=== PATIENT | male | born 1985 | race Hispanic/Latino ===

== ENCOUNTER 2017-12-18 14:34 | Emergency (ER) | payer SELFPAY ==
--- NOTE | 2017-12-18 16:11 | EDPHYS ---
Physician Documentation [facility] Name: Leandra Staton Age: 32 yrs Sex: Male : 1985 Arrival Date: 12/18/2017 Time: 14:37 Bed 26 Private MD: None, None ED Physician Armando Hope HPI: 12/18 16:13 This 32 yrs old Male presents to ER via Ambulatory with complaints of snw Headache, Toothache, Ear Pain. 16:14 The patient presents with pain, swelling. The problem is located in the lower left snw third molar (#17). Onset: The symptoms/episode began/occurred suddenly. Onset: The symptoms/episode began/occurred gradually. Duration: The symptoms are continuous, and are steadily getting worse. Modifying factors: The symptoms are alleviated by nothing. Associated signs and symptoms: Pertinent positives: pain, swelling. Severity of symptoms: At their worst the symptoms were moderate, severe. The patient has not experienced similar symptoms in the past. dentist x 1 month ago. Historical: - Allergies: 14:39 No Known Allergies; sv - Home Meds: 14:39 None [Active]; sv - PMHx: 14:39 Gout; sv - PSHx: 14:39 None; sv - Immunization history:: Adult Immunizations up to date. - Social history:: Smoking status: Patient uses tobacco products, denies chronic smoking, but will smoke occasionally. - Ebola Screening: : No symptoms or risks identified at this time. ROS: 16:12 Constitutional: Negative for fever, chills, and weight loss, Eyes: Negative for injury, snw pain, redness, and discharge, Neck: Negative for injury, pain, and swelling, Cardiovascular: Negative for chest pain, palpitations, and edema, Respiratory: Negative for shortness of breath, cough, wheezing, and pleuritic chest pain, Abdomen/GI: Negative for abdominal pain, nausea, vomiting, diarrhea, and constipation, Back: Negative for injury and pain, : Negative for injury, bleeding, discharge, and swelling, MS/Extremity: Negative for injury and deformity, Skin: Negative for injury, rash, and discoloration, Neuro: Negative for headache, weakness, numbness, tingling, and seizure. 16:12 ENT: Positive for dental pain, ear pain. Exam: 16:11 Constitutional: This is a well developed, well nourished patient who is awake, alert, snw and in no acute distress. Head/Face: Normocephalic, atraumatic. Eyes: Pupils equal round and reactive to light, extra-ocular motions intact. Lids and lashes normal. Conjunctiva and sclera are non-icteric and not injected. Cornea within normal limits. Periorbital areas with no swelling, redness, or edema. Neck: Trachea midline, no thyromegaly or masses palpated, and no cervical lymphadenopathy. Supple, full range of motion without nuchal rigidity, or vertebral point tenderness. No Meningismus. Chest/axilla: Normal chest wall appearance and motion. Nontender with no deformity. No lesions are appreciated. Cardiovascular: Regular rate and rhythm with a normal S1 and S2. No gallops, murmurs, or rubs. Normal PMI, no JVD. No pulse deficits. Respiratory: Lungs have equal breath sounds bilaterally, clear to auscultation and percussion. No rales, rhonchi or wheezes noted. No increased work of breathing, no retractions or nasal flaring. Abdomen/GI: Soft, non-tender, with normal bowel sounds. No distension or tympany. No guarding or rebound. No evidence of tenderness throughout. Back: No spinal tenderness. No costovertebral tenderness. Full range of motion. Skin: Warm, dry with normal turgor. Normal color with no rashes, no lesions, and no evidence of cellulitis. MS/ Extremity: Pulses equal, no cyanosis. Neurovascular intact. Full, normal range of motion. Neuro: Awake and alert, GCS 15, oriented to person, place, time, and situation. Cranial nerves II-XII grossly intact. Motor strength 5/5 in all extremities. Sensory grossly intact. Cerebellar exam normal. Normal gait. 16:11 ENT: External ear(s): are unremarkable, Ear canal(s): cerumen impaction, TM's: not visable, because of cerumen, Nose: is normal, Mouth: is normal, Dental exam: dental caries, that is moderate, specifically in the lower left third molar (#17). Vital Signs: 14:39 BP 142 / 73 RA Sitting (auto/lg); Pulse 79; Resp 18; Temp 97.9(TE); Pulse Ox 98% on sv R/A; Weight 113.4 kg (R); Height 5 ft. 8 in. (172.72 cm) (R); Pain 8/10; 14:39 Body Mass Index 38.01 (113.40 kg, 172.72 cm) sv MDM: 15:40 Patient medically screened. snw 16:13 Data reviewed: vital signs, nurses notes. Data interpreted: Pulse oximetry: on room air snw is 98 %. Interpretation: normal. Counseling: I had a detailed discussion with the patient and/or guardian regarding: the historical points, exam findings, and any diagnostic results supporting the discharge/admit diagnosis, the presence of at least one elevated blood pressure reading (>120/80) during this emergency department visit, the need for outpatient follow up, to return to the emergency department if symptoms worsen or persist or if there are any questions or concerns that arise at home. Special discussion: I have referred the patient to see his PCP for further evaluation of high blood pressure. Based on the history and exam findings, there is no indication for further emergent testing or inpatient evaluation. I discussed with the patient/guardian the need to see a dentist for further evaluation of the symptoms. I discussed with the patient/guardian the need to see the primary care provider for further evaluation of the symptoms. Administered Medications: 16:55 Drug: TORadol 60 mg Route: IM; Site: left gluteus; aj1 17:12 Follow up: Response: No adverse reaction aj1 16:55 Drug: Tylenol 1000 mg Route: PO; aj1 17:12 Follow up: Response: No adverse reaction aj1 16:55 Drug: Clindamycin 300 mg Route: PO; aj1 17:11 Follow up: Response: No adverse reaction aj1 Disposition: 12/19 07:25 Co-signature as Attending Physician, Armando Hope MD I agree with the assessment and kenya plan of care. Disposition: 12/18/17 16:10 Discharged to Home. Impression: Dental caries. - Condition is Stable. - Discharge Instructions: Dental Abscess, Dental Injury, Dental Pain, Diet and Dental Disease. - Prescriptions for Clindamycin HCl 300 mg Oral Capsule - take 1 capsule by ORAL route every 6 hours for 10 days; 40 capsule. Diclofenac Sodium 75 mg Oral Tablet Sustained Release - take 1 tablet by ORAL route 2 times per day; 30 tablet. chlorhexidine gluconate 0.12 % Mucous Membrane mouthwash - place 15 milliliter by MUCOUS MEMBRANE route 2 times per day after brushing teeth, swish in mouth for 30 seconds then spit out; 480 milliliter. - Work release form, Medication Reconciliation Form, Thank You Letter, Antibiotic Education, Prescription Opioid Use form. - Follow up: Private Physician; When: 2 - 3 days; Reason: Recheck today's complaints, Continuance of care, Re-evaluation by your physician. Follow up: Emergency Department; When: As needed; Reason: Worsening of condition. Signatures: Natalee Montilla, RN RN aj1 Iztel Carrasco RN Armando Morales MD MD cha Therrien, Shelly, MOLD CLOSER-C MOLD CLOSER-Csnw Corrections: (The following items were deleted from the chart) 12/18 17:17 16:10 12/18/2017 16:10 Discharged to Home. Impression: Dental caries. Condition is aj1 Stable. Forms are Medication Reconciliation Form, Thank You Letter, Antibiotic Education, Prescription Opioid Use. Follow up: Private Physician; When: 2 - 3 days; Reason: Recheck today's complaints, Continuance of care, Re-evaluation by your physician. Follow up: Emergency Department; When: As needed; Reason: Worsening of condition. snw
--- NOTE | 2017-12-18 16:11 | ER ---
Nurse's Notes [facility] Name: Leandra Staton Age: 32 yrs Sex: Male : 1985 Arrival Date: 12/18/2017 Time: 14:37 Bed 26 Private MD: None, None Diagnosis: Dental caries Presentation: 12/18 14:38 Presenting complaint: Patient states: "bad toothache, left ear ache and a headache." sv Started a month ago. Transition of care: patient was not received from another setting of care. Onset of symptoms was November 18, 2017. Care prior to arrival: None. 14:38 Method Of Arrival: Ambulatory sv 14:38 Acuity: STEPHANIE 4 sv 14:41 Risk Assessment: Do you want to hurt yourself or someone else? Patient reports no sv desire to harm self or others. Initial Sepsis Screen: Does the patient meet any 2 criteria? No. Patient's initial sepsis screen is negative. Does the patient have a suspected source of infection? No. Patient's initial sepsis screen is negative. Triage Assessment: 16:56 Headache History: Denies prior headaches. General: Appears in no apparent distress. aj1 Pain: Pain began suddenly, Also complains of inability to work. Historical: - Allergies: 14:39 No Known Allergies; sv - Home Meds: 14:39 None [Active]; sv - PMHx: 14:39 Gout; sv - PSHx: 14:39 None; sv - Immunization history:: Adult Immunizations up to date. - Social history:: Smoking status: Patient uses tobacco products, denies chronic smoking, but will smoke occasionally. - Ebola Screening: : No symptoms or risks identified at this time. Screenin:41 Abuse screen: Denies threats or abuse. Denies injuries from another. Nutritional aj1 screening: No deficits noted. Tuberculosis screening: No symptoms or risk factors identified. 16:56 Fall Risk None identified. aj1 Assessment: 15:41 General: Appears in no apparent distress. uncomfortable, Behavior is calm, cooperative, aj1 appropriate for age. Pain: Complains of pain in mouth Pain radiates to left ear Pain currently is 9 out of 10 on a pain scale. Neuro: Level of Consciousness is awake, alert, obeys commands. Cardiovascular: Patient's skin is warm and dry. Respiratory: Airway is patent Respiratory effort is even, unlabored, Respiratory pattern is regular, symmetrical. GI: No signs and/or symptoms were reported involving the gastrointestinal system. : No signs and/or symptoms were reported regarding the genitourinary system. EENT: Reports pain in mouth States he has had a bad tooth for about a month and a half. He was the dentist and they gave him PCN and Motrin, he completed the abx and felt better, then suddenly today his tooth started hurting again. Derm: No signs and/or symptoms reported regarding the dermatologic system. Skin is pink, warm \\T\\ dry. normal. Musculoskeletal: No signs and/or symptoms reported regarding the musculoskeletal system. Circulation, motion, and sensation intact. 16:55 Reassessment: Patient appears in no apparent distress at this time. No changes from aj1 previously documented assessment. Patient and/or family updated on plan of care and expected duration. Pain level reassessed. Patient is alert, oriented x 3, equal unlabored respirations, skin warm/dry/pink. Vital Signs: 14:39 BP 142 / 73 RA Sitting (auto/lg); Pulse 79; Resp 18; Temp 97.9(TE); Pulse Ox 98% on sv R/A; Weight 113.4 kg (R); Height 5 ft. 8 in. (172.72 cm) (R); Pain 8/10; 14:39 Body Mass Index 38.01 (113.40 kg, 172.72 cm) sv ED Course: 14:37 Patient arrived in ED. mr 14:37 None, None is Private Physician. mr 14:39 Triage completed. sv 14:39 Arm band placed on right wrist. sv 15:40 Gay Garcia FNP-C is PHCP. snw 15:40 Armando Hope MD is Attending Physician. snw 15:41 Natalee Montilla RN is Primary Nurse. aj1 15:41 Patient has correct armband on for positive identification. Bed in low position. Call aj1 light in reach. Side rails up X 1. 15:41 No provider procedures requiring assistance completed. aj1 16:55 Patient did not have IV access during this emergency room visit. aj1 Administered Medications: 16:55 Drug: TORadol 60 mg Route: IM; Site: left gluteus; aj1 17:12 Follow up: Response: No adverse reaction aj1 16:55 Drug: Tylenol 1000 mg Route: PO; aj1 17:12 Follow up: Response: No adverse reaction aj1 16:55 Drug: Clindamycin 300 mg Route: PO; aj1 17:11 Follow up: Response: No adverse reaction aj1 Outcome: 16:10 Discharge ordered by MD. patel 17:17 Discharged to home ambulatory. aj1 17:17 Condition: good 17:17 Discharge instructions given to patient, Instructed on discharge instructions, follow up and referral plans. medication usage, Demonstrated understanding of instructions, follow-up care, medications, Prescriptions given X 3. 17:17 Patient left the ED. aj1 Signatures: Natalee Montilla RN RN aj1 Itzel Carrasco RN RN sv Gay Garcia, TECHNICAL TRAINING MANAGER-C TECHNICAL TRAINING MANAGER-Csnw Porsha Ba Corrections: (The following items were deleted from the chart) 14:42 14:39 Pulse 79bpm; Resp 18bpm; Pulse Ox 98% RA; Temp 97.9F Temporal; 113.4 kg Reported; sv Height 5 ft. 8 in. Reported; BMI: 38.0; Pain 8/10; sv
[2017-12-18] MEDS ORDERED: ACETAMINOPHEN 500 MG TAB ONE (16:47)
[2017-12-18] MEDS ORDERED: KETOROLAC 30 MG/ML INJ ONE (16:47)
[2017-12-18] MEDS ORDERED: CLINDAMYCIN HCL 150 MG CAP ONE (16:49)
[2017-12-18 17:23] VITALS: BP 142/73; TEMP 97.9; O2SAT 98
== END 2017-12-18 17:17 | disposition home or self-care (01) ==
LOC: ER 14:34
DX: K02.9 Dental caries, unspecified (principal); Z72.0 Tobacco use
CPT/HCPCS: 96372; 99283

== ENCOUNTER 2018-01-07 11:11 | Emergency (ER) | payer SELFPAY ==
--- NOTE | 2018-01-07 11:38 | ER ---
Nurse's Notes [facility] Name: Leandra Staton Age: 32 yrs Sex: Male : 1985 Arrival Date: 01/07/2018 Time: 11:14 Bed 23 Private MD: None, None Diagnosis: Gout Presentation: 01/07 11:15 Presenting complaint: Patient states: i have this pain on my L big toe that started hj yesterday around 6pm, denies trauma to the area, was swimming when it started hurting; denies wound to the area; denies tingling and numbness to the area; HX of gout; "states" i drink 2 bottle of beers yesterday";. Transition of care: patient was not received from another setting of care. Onset of symptoms was January 07, 2018. Risk Assessment: Do you want to hurt yourself or someone else? Patient reports no desire to harm self or others. Initial Sepsis Screen: Does the patient meet any 2 criteria? No. Patient's initial sepsis screen is negative. Does the patient have a suspected source of infection? No. Patient's initial sepsis screen is negative. Care prior to arrival: None. 11:15 Method Of Arrival: Ambulatory 11:15 Acuity: STEPHANIE 4 hj Triage Assessment: 11:17 General: Appears in no apparent distress. uncomfortable, Behavior is calm, cooperative, hj appropriate for age. Pain: Complains of pain in left first toe Pain currently is 4 out of 10 on a pain scale. Historical: - Allergies: 11:17 No Known Allergies; hj - Home Meds: 11:17 None [Active]; hj - PMHx: 11:17 Gout; 14:45 Hypertension; gs - PSHx: 11:17 None; hj - Immunization history:: Adult Immunizations up to date. - Social history:: Smoking status: Patient/guardian denies using tobacco, Patient uses alcohol. - Ebola Screening: : Patient negative for fever greater than or equal to 101.5 degrees Fahrenheit, and additional compatible Ebola Virus Disease symptoms Patient denies exposure to infectious person Patient denies travel to an Ebola-affected area in the 21 days before illness onset. Screenin:17 Abuse screen: Denies threats or abuse. Denies injuries from another. Nutritional hj screening: No deficits noted. Tuberculosis screening: No symptoms or risk factors identified. Fall Risk None identified. Assessment: 11:23 General: Appears in no apparent distress. uncomfortable, Behavior is calm, cooperative, aj1 appropriate for age. Pain: Complains of pain in left first toe Pain does not radiate. Pain currently is 4 out of 10 on a pain scale. Quality of pain is described as aching, throbbing, Is intermittent, Alleviated by rest, Aggravated by repositioning, weight bearing. Neuro: Level of Consciousness is awake, alert, obeys commands, Oriented to person, place, time, situation, Speech is normal. Cardiovascular: Patient's skin is warm and dry. Respiratory: Airway is patent Respiratory effort is even, unlabored, Respiratory pattern is regular, symmetrical. GI: No signs and/or symptoms were reported involving the gastrointestinal system. : No signs and/or symptoms were reported regarding the genitourinary system. EENT: No signs and/or symptoms were reported regarding the EENT system. Derm: No signs and/or symptoms reported regarding the dermatologic system. Skin is pink, warm \\T\\ dry. normal. Musculoskeletal: Circulation, motion, and sensation intact. Range of motion: intact in all extremities, Patient states that he has some swelling and limited ROM to the left great toe yesterday that has now resolved. Vital Signs: 11:17 BP 144 / 87; Pulse 71; Resp 18; Temp 98.3(O); Pulse Ox 96% on R/A; Weight 113.4 kg; hj Height 5 ft. 8 in. (172.72 cm); Pain 4/10; 11:17 Body Mass Index 38.01 (113.40 kg, 172.72 cm) ED Course: 11:14 Patient arrived in ED. jb7 11:15 None, None is Private Physician. jb7 11:16 Triage completed. hj 11:17 Arm band placed on left wrist. hj 11:20 Natalee Montilla, KING is Primary Nurse. aj1 11:23 Hill Grey MD is Attending Physician. 11:23 Patient has correct armband on for positive identification. Bed in low position. Call aj1 light in reach. Side rails up X 1. 11:23 No provider procedures requiring assistance completed. aj1 11:59 Patient did not have IV access during this emergency room visit. aj1 Administered Medications: No medications were administered Outcome: 11:37 Discharge ordered by . 11:59 Discharged to home ambulatory. aj1 11:59 Condition: good 11:59 Discharge instructions given to patient, Instructed on discharge instructions, follow up and referral plans. no drinking with medication, no driving heavy equipment, medication usage, Demonstrated understanding of instructions, follow-up care, medications. 12:00 Patient left the ED. aj1 Signatures: Natalee Montilla RN RN aj1 Julius Alvarez RN RN Wilmer Gonzalez jb7 Hill Grey MD MD gs Corrections: (The following items were deleted from the chart) [id number] 11:15 Presenting complaint: Patient states: i have this pain on my L big toe that hj started yesterday around 6pm, denies trauma to the area, was swimming when it started hurting; denies wound to the area; denies tingling and numbness to the area; hj 11:19 11:15 Presenting complaint: Patient states: i have this pain on my L big toe that hj started yesterday around 6pm, denies trauma to the area, was swimming when it started hurting; denies wound to the area; denies tingling and numbness to the area;hx of gout; hj 11:19 11:17 113.4 kg; Height 5 ft. 8 in.; BMI: 38.0; Pain 4/10; hj hj 11:20 11:17 Pulse 71bpm; Resp 18bpm; Pulse Ox 96% RA; Temp 98.3F Oral; 113.4 kg; Height 5 ft. hj 8 in.; BMI: 38.0; Pain 4/10; hj
[2018-01-07 12:16] VITALS: BP 144/87; TEMP 98.3; O2SAT 96
--- NOTE | 2018-01-08 12:00 | EDPHYS ---
Physician Documentation [facility] Name: Leandra Staton Age: 32 yrs Sex: Male : 1985 Arrival Date: 01/07/2018 Time: 11:14 Bed 23 Private MD: None, None ED Physician Hill Grey HPI: 01/07 14:00 This 32 yrs old Male presents to ER via Ambulatory with complaints of Feet gs Swelling. 14:00 The patient presents with pain, that is acute. The complaints affect the left foot, gs left first toe. Onset: The symptoms/episode began/occurred 3 day(s) ago, and became persistent. Modifying factors: the symptoms are aggravated by movement. Associated signs and symptoms: Pertinent negatives: fever, numbness. Severity of symptoms: At their worst the symptoms were moderate, in the emergency department the symptoms are unchanged. The patient has experienced similar episodes in the past, several times, gout. Historical: - Allergies: 11:17 No Known Allergies; hj - Home Meds: 11:17 None [Active]; hj - PMHx: 11:17 Gout; hj 14:45 Hypertension; gs - PSHx: 11:17 None; hj - Immunization history:: Adult Immunizations up to date. - Social history:: Smoking status: Patient/guardian denies using tobacco, Patient uses alcohol. - Ebola Screening: : Patient negative for fever greater than or equal to 101.5 degrees Fahrenheit, and additional compatible Ebola Virus Disease symptoms Patient denies exposure to infectious person Patient denies travel to an Ebola-affected area in the 21 days before illness onset. ROS: 14:00 All other systems are negative. gs Exam: 14:00 Cardiovascular: Regular rate and rhythm with a normal S1 and S2. No gallops, murmurs, gs or rubs. Normal PMI, no JVD. No pulse deficits. Respiratory: Lungs have equal breath sounds bilaterally, clear to auscultation and percussion. No rales, rhonchi or wheezes noted. No increased work of breathing, no retractions or nasal flaring. Abdomen/GI: Soft, non-tender, with normal bowel sounds. No distension or tympany. No guarding or rebound. No evidence of tenderness throughout. Skin: Warm, dry with normal turgor. Normal color with no rashes, no lesions, and no evidence of cellulitis. Neuro: Awake and alert, GCS 15, oriented to person, place, time, and situation. Cranial nerves II-XII grossly intact. Motor strength 5/5 in all extremities. Sensory grossly intact. Cerebellar exam normal. Normal gait. 14:00 Constitutional: The patient appears alert, awake. 14:00 Musculoskeletal/extremity: Extremities: noted in the left first toe: swelling, tenderness, ROM: limited active range of motion due to pain, limited passive range of motion due to pain, Circulation is intact in all extremities. Sensation intact. Vital Signs: 11:17 BP 144 / 87; Pulse 71; Resp 18; Temp 98.3(O); Pulse Ox 96% on R/A; Weight 113.4 kg; hj Height 5 ft. 8 in. (172.72 cm); Pain 4/10; 11:17 Body Mass Index 38.01 (113.40 kg, 172.72 cm) MDM: 11:37 Patient medically screened. 14:00 Differential diagnosis: sprain, arthritis, gout. Data reviewed: vital signs, nurses notes. Administered Medications: No medications were administered Disposition: 01/07/18 11:37 Discharged to Home. Impression: Gout. - Condition is Stable. - Prescriptions for Prednisone 20 mg Oral Tablet - take 1 tablet by ORAL route once daily for 5 days; 5 tablet. Tylenol- Codeine #4 300-60 mg Oral Tablet - take 1 tablet by ORAL route every 6 hours As needed; 6 tablet. - Work release form, Medication Reconciliation Form, Thank You Letter, Antibiotic Education, Prescription Opioid Use form. - Follow up: Private Physician; When: 2 - 3 days; Reason: Re-evaluation by your physician. Signatures: Natalee Montilla RN RN aj1 Julius Alvarez RN RN Hill Grey MD MD Corrections: (The following items were deleted from the chart) 12:00 11:37 01/07/2018 11:37 Discharged to Home. Impression: Gout. Condition is Stable. Forms aj1 are Medication Reconciliation Form, Thank You Letter, Antibiotic Education, Prescription Opioid Use. Follow up: Private Physician; When: 2 - 3 days; Reason: Re-evaluation by your physician.
== END 2018-01-07 12:00 | disposition home or self-care (01) ==
LOC: ER 11:11
DX: M10.9 Gout, unspecified (principal); I10 Essential (primary) hypertension
CPT/HCPCS: 99281

== ENCOUNTER 2018-02-23 21:54 | Emergency (ER) | payer SELFPAY ==
--- NOTE | 2018-02-23 22:44 | EDPHYS ---
Physician Documentation [facility] Name: Leandra Staton Age: 32 yrs Sex: Male : 1985 Arrival Date: 02/23/2018 Time: 21:56 Bed 14 Private MD: None, None ED Physician Edwardo Howell HPI: 02/23 22:39 This 32 yrs old Male presents to ER via Ambulatory with complaints of rn Toothache. 22:39 The patient presents with pain. The problem is located in the left lower wisdom tooth. rn Onset: The symptoms/episode began/occurred 2 day(s) ago. Duration: The symptoms are intermittent. Modifying factors: The symptoms are alleviated by nothing, the symptoms are aggravated by air, chewing, food. Severity of symptoms: At their worst the symptoms were moderate, in the emergency department the symptoms are unchanged. The patient has experienced similar episodes in the past. Reports has had chronic tooth pain in left lower wisdom tooth, no known trauma, no fever, has tried oragel and only helps a little bit. NO drainage.. Historical: - Allergies: 22:04 No Known Allergies; aj1 - Home Meds: 22:04 None [Active]; aj1 - PMHx: 22:04 Gout; Hypertension; aj1 - PSHx: 22:04 None; aj1 - Immunization history:: Flu vaccine is up to date. - Social history:: Smoking status: Patient/guardian denies using tobacco. - Ebola Screening: : Patient denies travel to an Ebola-affected area in the 21 days before illness onset. - Family history:: not pertinent. - Hospitalizations: : No recent hospitalization is reported. ROS: 22:39 Constitutional: Negative for fever, chills, and weight loss, ENT: + dental pain rn Exam: 22:39 Constitutional: This is a well developed, well nourished patient who is awake, alert, rn and in no acute distress. ENT: + poor dentition, + left lower wisdom tooth with apparent chip off medial surface and central cavity, no abscess or drainage. Vital Signs: 22:04 BP 153 / 101; Pulse 71; Resp 18; Temp 98.1; Pulse Ox 97% on R/A; Weight 108.86 kg; aj1 Height 5 ft. 8 in. (172.72 cm); Pain 9/10; 22:53 BP 146 / 65; Pulse 89; Resp 18; Pulse Ox 100% on R/A; Pain 5/10; mg2 22:04 Body Mass Index 36.49 (108.86 kg, 172.72 cm) aj1 MDM: 22:31 Patient medically screened. rn 22:39 Differential diagnosis: dental caries. Data reviewed: vital signs, nurses notes, and as rn a result, I will discharge patient. Counseling: I had a detailed discussion with the patient and/or guardian regarding: the historical points, exam findings, and any diagnostic results supporting the discharge/admit diagnosis, the need for outpatient follow up, to return to the emergency department if symptoms worsen or persist or if there are any questions or concerns that arise at home. Special discussion: I discussed with the patient/guardian in detail that at this point there is no indication for admission to the hospital. It is understood, however, that if the symptoms persist or worsen the patient needs to return immediately for re-evaluation. Based on the history and exam findings, there is no indication for further emergent testing or inpatient evaluation. I discussed with the patient/guardian the need to see a dentist for further evaluation of the symptoms. ED course: Recommended dentist, motrin, oragel, and temporary filling that he can buy over the counter. . Administered Medications: No medications were administered Disposition: 02/23/18 22:43 Discharged to Home. Impression: Dental caries. - Condition is Stable. - Discharge Instructions: Dental Pain. - Prescriptions for Clindamycin HCl 300 mg Oral Capsule - take 1 capsule by ORAL route every 6 hours for 10 days; 40 capsule. Ibuprofen 800 mg Oral Tablet - take 1 tablet by ORAL route every 12 hours As needed take with food; 20 tablet. - Medication Reconciliation Form, Thank You Letter, Antibiotic Education, Prescription Opioid Use form. - Follow up: Private Physician; When: As needed; Reason: Recheck today's complaints, Re-evaluation by your physician. - Problem is an ongoing problem. - Symptoms are unchanged. Signatures: Natalee Montilla RN RN aj1 Edwardo Howell MD MD rn Gardose, Michele, RN RN mg2 Corrections: (The following items were deleted from the chart) 22:53 22:43 02/23/2018 22:43 Discharged to Home. Impression: Dental caries. Condition is mg2 Stable. Forms are Medication Reconciliation Form, Thank You Letter, Antibiotic Education, Prescription Opioid Use. Follow up: Private Physician; When: As needed; Reason: Recheck today's complaints, Re-evaluation by your physician. Problem is an ongoing problem. Symptoms are unchanged. rn
--- NOTE | 2018-02-23 22:44 | ER ---
Nurse's Notes [facility] Name: Leandra Staton Age: 32 yrs Sex: Male : 1985 Arrival Date: 02/23/2018 Time: 21:56 Bed 14 Private MD: None, None Diagnosis: Dental caries Presentation: 02/23 22:01 Presenting complaint: Patient states: toothache to the left lower jaw for the past 2 aj1 days. denies fever. Patient has not been able to see a dentist regarding this complaint. Transition of care: patient was not received from another setting of care. Onset of symptoms was February 21, 2018. Risk Assessment: Do you want to hurt yourself or someone else? Patient reports no desire to harm self or others. Initial Sepsis Screen: Does the patient meet any 2 criteria? No. Patient's initial sepsis screen is negative. Does the patient have a suspected source of infection? No. Patient's initial sepsis screen is negative. Care prior to arrival: None. 22:01 Method Of Arrival: Ambulatory aj1 22:01 Acuity: STEPHANIE 4 aj1 Triage Assessment: 22:04 General: Appears in no apparent distress. uncomfortable, Behavior is calm, cooperative, aj1 appropriate for age. Pain: Complains of pain in mouth Pain currently is 9 out of 10 on a pain scale. EENT: Reports pain in left jaw. Neuro: Level of Consciousness is awake, alert, obeys commands. Cardiovascular: Patient's skin is warm and dry. Respiratory: Airway is patent Respiratory effort is even, unlabored, Respiratory pattern is regular, symmetrical. Historical: - Allergies: 22:04 No Known Allergies; aj1 - Home Meds: 22:04 None [Active]; aj1 - PMHx: 22:04 Gout; Hypertension; aj1 - PSHx: 22:04 None; aj1 - Immunization history:: Flu vaccine is up to date. - Social history:: Smoking status: Patient/guardian denies using tobacco. - Ebola Screening: : Patient denies travel to an Ebola-affected area in the 21 days before illness onset. - Family history:: not pertinent. - Hospitalizations: : No recent hospitalization is reported. Screenin:15 Abuse screen: Denies threats or abuse. Denies injuries from another. Nutritional mg2 screening: No deficits noted. Tuberculosis screening: No symptoms or risk factors identified. Fall Risk None identified. Assessment: 22:16 General: Appears in no apparent distress. comfortable, Behavior is calm, cooperative. mg2 Pain: Complains of pain in left jaw and mouth Pain does not radiate. Pain Quality of pain is described as aching, Pain began gradually, Is intermittent. Neuro: Level of Consciousness is awake, alert, obeys commands, Oriented to person, place, time, situation. Cardiovascular: Capillary refill < 3 seconds Patient's skin is warm and dry. Respiratory: Airway is patent Respiratory effort is even, unlabored, Respiratory pattern is regular, symmetrical. GI: No signs and/or symptoms were reported involving the gastrointestinal system. : No signs and/or symptoms were reported regarding the genitourinary system. EENT: No signs and/or symptoms were reported regarding the EENT system. Derm: Skin is intact, Skin is pink, warm \T\ dry. normal. Musculoskeletal: Circulation, motion, and sensation intact. Vital Signs: 22:04 BP 153 / 101; Pulse 71; Resp 18; Temp 98.1; Pulse Ox 97% on R/A; Weight 108.86 kg; aj1 Height 5 ft. 8 in. (172.72 cm); Pain 9/10; 22:53 BP 146 / 65; Pulse 89; Resp 18; Pulse Ox 100% on R/A; Pain 5/10; mg2 22:04 Body Mass Index 36.49 (108.86 kg, 172.72 cm) aj1 ED Course: 21:56 Patient arrived in ED. mr 21:56 None, None is Private Physician. mr 22:03 Triage completed. aj1 22:04 Arm band placed on Patient placed in an exam room. aj1 22:15 Tanner Beltran, RN is Primary Nurse. mg2 22:17 Patient has correct armband on for positive identification. Bed in low position. Door mg2 closed. 22:31 Edwardo Howell MD is Attending Physician. rn 22:52 No provider procedures requiring assistance completed. Patient did not have IV access mg2 during this emergency room visit. Administered Medications: No medications were administered Outcome: 22:43 Discharge ordered by MD. rn 22:53 Discharged to home ambulatory. mg2 22:53 Condition: good 22:53 Discharge instructions given to patient, Instructed on discharge instructions, follow up and referral plans. medication usage, Demonstrated understanding of instructions, follow-up care, medications, Prescriptions given X 2. 22:53 Patient left the ED. mg2 Signatures: Natalee Montilla RN RN aj1 Posrha Ba Roman, MD MD rn Gardose, Michele, RN RN mg2
[2018-02-23 22:57] VITALS: TEMP 98.1
[2018-02-23 22:58] VITALS: BP 146/65; O2SAT 100
== END 2018-02-23 22:53 | disposition home or self-care (01) ==
LOC: ER 21:54
DX: K02.9 Dental caries, unspecified (principal)
CPT/HCPCS: 99282

== ENCOUNTER 2018-03-26 17:28 | Emergency (ER) | payer SELFPAY ==
--- NOTE | 2018-03-26 18:03 | EDPHYS ---
Physician Documentation [facility] Name: Leandra Staton Age: 32 yrs Sex: Male : 1985 Arrival Date: 03/26/2018 Time: 17:32 Bed 12 Private MD: None, None ED Physician Hill Grey HPI: 03/26 17:59 This 32 yrs old Male presents to ER via Ambulatory with complaints of Gout. gs 17:59 The patient presents with pain, that is acute. The complaints affect the right foot. gs Context: gout flare, vacation had etoh, rich food recently. Onset: The symptoms/episode began/occurred acutely. Modifying factors: the symptoms are aggravated by movement. Associated signs and symptoms: Pertinent negatives: calf tenderness, numbness. Severity of symptoms: At their worst the symptoms were moderate, in the emergency department the symptoms are unchanged. The patient has experienced similar episodes in the past, several times. Historical: - Allergies: 17:44 No Known Allergies; ph - Home Meds: 17:44 None [Active]; ph - PMHx: 17:44 Gout; Hypertension; ph - PSHx: 17:44 None; ph - Immunization history:: Adult Immunizations up to date. - Social history:: Smoking status: Patient/guardian denies using tobacco. - Ebola Screening: : Patient negative for fever greater than or equal to 101.5 degrees Fahrenheit, and additional compatible Ebola Virus Disease symptoms Patient denies exposure to infectious person Patient denies travel to an Ebola-affected area in the 21 days before illness onset. ROS: 17:59 All other systems are negative. gs Exam: 17:59 ENT: Nares patent. No nasal discharge, no septal abnormalities noted. Tympanic gs membranes are normal and external auditory canals are clear. Oropharynx with no redness, swelling, or masses, exudates, or evidence of obstruction, uvula midline. Mucous membranes moist. Cardiovascular: Regular rate and rhythm with a normal S1 and S2. No gallops, murmurs, or rubs. Normal PMI, no JVD. No pulse deficits. Respiratory: Lungs have equal breath sounds bilaterally, clear to auscultation and percussion. No rales, rhonchi or wheezes noted. No increased work of breathing, no retractions or nasal flaring. Abdomen/GI: Soft, non-tender, with normal bowel sounds. No distension or tympany. No guarding or rebound. No evidence of tenderness throughout. Skin: Warm, dry with normal turgor. Normal color with no rashes, no lesions, and no evidence of cellulitis. Neuro: Awake and alert, GCS 15, oriented to person, place, time, and situation. Cranial nerves II-XII grossly intact. Motor strength 5/5 in all extremities. Sensory grossly intact. Cerebellar exam normal. Normal gait. 17:59 Constitutional: The patient appears alert, awake. 17:59 Musculoskeletal/extremity: Extremities: noted in the dorsum of right foot: swelling, tenderness, Circulation is intact in all extremities. Vital Signs: 17:43 BP 140 / 87; Pulse 75; Resp 18; Temp 98.8; Pulse Ox 97% on R/A; Weight 108.86 kg; ph Height 5 ft. 8 in. (172.72 cm); Pain 3/10; 17:43 Body Mass Index 36.49 (108.86 kg, 172.72 cm) ph MDM: 17:59 Patient medically screened. 17:59 Differential diagnosis: sprain, arthritis, gout. Data reviewed: vital signs, nurses gs notes. Administered Medications: No medications were administered Disposition: 03/26/18 18:02 Discharged to Home. Impression: Gout. - Condition is Stable. - Discharge Instructions: Gout, [id number]. - Prescriptions for Prednisone 20 mg Oral Tablet - take 1 tablet by ORAL route once daily for 5 days; 5 tablet. Allopurinol 100 mg Oral Tablet - take 1 tablet by ORAL route 2 times per day; 30 tablet. - Medication Reconciliation Form, Thank You Letter, Antibiotic Education, Prescription Opioid Use form. - Work release form (03/26/18 18:47). eb - Follow up: Private Physician; When: 2 - 3 days; Reason: Re-evaluation by your physician. Follow up: Delon Marsh DO; When: 2 - 3 days; Reason: Re-evaluation by your physician. Signatures: Letty Ceron RN RN Hill Grey MD MD Akash Medina RN RN rv Botello, Elizabeth eb Corrections: (The following items were deleted from the chart) 18:15 18:02 03/26/2018 18:02 Discharged to Home. Impression: Gout. Condition is Stable. Forms rv are Medication Reconciliation Form, Thank You Letter, Antibiotic Education, Prescription Opioid Use. Follow up: Private Physician; When: 2 - 3 days; Reason: Re-evaluation by your physician. Follow up: Delon Marsh; When: 2 - 3 days; Reason: Re-evaluation by your physician. gs
--- NOTE | 2018-03-26 18:03 | ER ---
Nurse's Notes [facility] Name: Leandra Staton Age: 32 yrs Sex: Male : 1985 Arrival Date: 03/26/2018 Time: 17:32 Bed 12 Private MD: None, None Diagnosis: Gout Presentation: 03/26 17:42 Presenting complaint: Patient states: " My right big toe is swollen and hurting. I've ph had gout before and that's what it feels like." Swelling noted to R great toe, reports symptoms began . Transition of care: patient was not received from another setting of care. Onset of symptoms was March 26, 2018. Risk Assessment: Do you want to hurt yourself or someone else? Patient reports no desire to harm self or others. Initial Sepsis Screen: Does the patient meet any 2 criteria? No. Patient's initial sepsis screen is negative. Does the patient have a suspected source of infection? No. Patient's initial sepsis screen is negative. Care prior to arrival: None. 17:42 Method Of Arrival: Ambulatory ph 17:42 Acuity: STEPHANIE 4 ph Historical: - Allergies: 17:44 No Known Allergies; ph - Home Meds: 17:44 None [Active]; ph - PMHx: 17:44 Gout; Hypertension; ph - PSHx: 17:44 None; ph - Immunization history:: Adult Immunizations up to date. - Social history:: Smoking status: Patient/guardian denies using tobacco. - Ebola Screening: : Patient negative for fever greater than or equal to 101.5 degrees Fahrenheit, and additional compatible Ebola Virus Disease symptoms Patient denies exposure to infectious person Patient denies travel to an Ebola-affected area in the 21 days before illness onset. Screenin:57 Abuse screen: Denies threats or abuse. Denies injuries from another. Nutritional rv screening: No deficits noted. Tuberculosis screening: No symptoms or risk factors identified. Fall Risk None identified. Assessment: 17:55 General: Appears in no apparent distress. comfortable, Behavior is calm, cooperative. rv Pain: Complains of pain in right foot. Neuro: Level of Consciousness is awake, alert, obeys commands, Oriented to person, place, time, situation. Cardiovascular: Capillary refill < 3 seconds. Respiratory: Airway is patent. GI: No signs and/or symptoms were reported involving the gastrointestinal system. : No signs and/or symptoms were reported regarding the genitourinary system. EENT: No signs and/or symptoms were reported regarding the EENT system. Derm: Skin is intact, Skin temperature is warm. Musculoskeletal: Reports pain in big toe, right foot. Vital Signs: 17:43 BP 140 / 87; Pulse 75; Resp 18; Temp 98.8; Pulse Ox 97% on R/A; Weight 108.86 kg; ph Height 5 ft. 8 in. (172.72 cm); Pain 3/10; 17:43 Body Mass Index 36.49 (108.86 kg, 172.72 cm) ph ED Course: 17:32 Patient arrived in ED. mr 17:32 None, None is Private Physician. mr 17:43 Triage completed. ph 17:44 Arm band placed on. ph 17:54 Hill Grey MD is Attending Physician. gs 17:57 Patient has correct armband on for positive identification. Bed in low position. Call rv light in reach. Pulse ox on. NIBP on. 18:01 Delon Marsh DO is Referral Physician. gs 18:15 No provider procedures requiring assistance completed. Patient did not have IV access rv during this emergency room visit. Administered Medications: No medications were administered Outcome: 18:02 Discharge ordered by . 18:15 Discharged to home ambulatory. rv 18:15 Condition: good 18:15 Discharge instructions given to patient, Instructed on discharge instructions, follow up and referral plans. medication usage, Demonstrated understanding of instructions, follow-up care, medications, Prescriptions given X 2. 18:15 Patient left the ED. rv Signatures: Porsha Ba mr Letty Ceron, RN RN Hill Grey MD MD Akash Medina RN RN rv
[2018-03-26 18:20] VITALS: BP 140/87; TEMP 98.8; O2SAT 97
== END 2018-03-26 18:15 | disposition home or self-care (01) ==
LOC: ER 17:28
DX: M10.9 Gout, unspecified (principal); I10 Essential (primary) hypertension
CPT/HCPCS: 99283

== ENCOUNTER 2018-05-06 19:35 | Emergency (ER) | payer SELFPAY ==
--- NOTE | 2018-05-06 20:46 | RAD REPORT ---
EXAM DESCRIPTION: RAD - Foot Right 2 View - 05/06/2018 8:23 pm CLINICAL HISTORY: PAIN COMPARISON: No comparisons FINDINGS: Soft tissue swelling is seen affecting the great toe. No acute fracture seen. Small calcan eal spurs are present.
--- NOTE | 2018-05-06 20:50 | ER ---
Nurse's Notes [facility] Name: Leandra Staton Age: 33 yrs Sex: Male : 1985 Arrival Date: 05/06/2018 Time: 19:37 Bed 25 Private MD: Diagnosis: Pain in right toe(s) Presentation: 05/06 19:54 Presenting complaint: Patient states: He went to work this morning and after lunch his aj1 noticed pain in his right great toe. By the time he got off work at 1700 the pain was worse and he noticed the toe was swollen. Now he is unable to bear weight on his right great toe at all because of the pain. Transition of care: patient was not received from another setting of care. Onset of symptoms was May 06, 2018. Risk Assessment: Do you want to hurt yourself or someone else? Patient reports no desire to harm self or others. Initial Sepsis Screen: Does the patient meet any 2 criteria? No. Patient's initial sepsis screen is negative. Does the patient have a suspected source of infection? No. Patient's initial sepsis screen is negative. Care prior to arrival: None. 19:54 Method Of Arrival: Ambulatory aj1 19:54 Acuity: STEPHANIE 4 aj1 Triage Assessment: 19:57 General: Appears in no apparent distress. uncomfortable, Behavior is calm, cooperative, aj1 appropriate for age. Pain: Complains of pain in right first toe. Historical: - Allergies: 19:57 No Known Allergies; aj1 - Home Meds: 19:57 None [Active]; aj1 - PMHx: 19:57 Gout; Hypertension; aj1 - PSHx: 19:57 None; aj1 - Immunization history:: Flu vaccine is not up to date. - Social history:: Smoking status: Patient/guardian denies using tobacco, Patient/guardian denies using alcohol, street drugs, The patient lives with family. - Ebola Screening: : Patient denies travel to an Ebola-affected area in the 21 days before illness onset. - Family history:: not pertinent. Screenin:58 Abuse screen: Denies threats or abuse. Denies injuries from another. Nutritional aj1 screening: No deficits noted. Tuberculosis screening: No symptoms or risk factors identified. 21:04 Fall Risk None identified. rv Assessment: 19:58 General: Appears in no apparent distress. uncomfortable, Behavior is calm, cooperative, aj1 appropriate for age. Pain: Complains of pain in right first toe Pain does not radiate. Pain currently is 10 out of 10 on a pain scale. Quality of pain is described as throbbing, Is continuous, Alleviated by nothing. Aggravated by repositioning, weight bearing. Neuro: Level of Consciousness is awake, alert, obeys commands. Cardiovascular: Patient's skin is warm and dry. Respiratory: Airway is patent Respiratory effort is even, unlabored, Respiratory pattern is regular, symmetrical. GI: No signs and/or symptoms were reported involving the gastrointestinal system. : No signs and/or symptoms were reported regarding the genitourinary system. EENT: No signs and/or symptoms were reported regarding the EENT system. Derm: Skin is pink, warm \T\ dry. normal. Musculoskeletal: Range of motion: intact in all extremities. Vital Signs: 19:57 BP 141 / 91; Pulse 92; Resp 18; Temp 98.7; Pulse Ox 97% on R/A; Weight 108.86 kg (R); aj1 Height 5 ft. 8 in. (172.72 cm) (R); Pain 10/10; 19:57 Body Mass Index 36.49 (108.86 kg, 172.72 cm) aj1 ED Course: 19:37 Patient arrived in ED. as 19:51 Kassy Bojorquez MD is Attending Physician. ma2 19:54 Natalee Montilla, KING is Primary Nurse. aj1 19:56 Triage completed. aj1 19:57 Arm band placed on. aj1 19:58 Patient has correct armband on for positive identification. Bed in low position. Call aj1 light in reach. Side rails up X 1. 19:58 No provider procedures requiring assistance completed. aj1 20:23 X-ray completed. Portable x-ray completed in exam room. Patient tolerated procedure kw well. 20:24 Foot Right 2 View XRAY In Process Unspecified. EDMS 21:04 Patient did not have IV access during this emergency room visit. rv Administered Medications: No medications were administered Outcome: 20:50 Discharge ordered by . ma2 21:03 Discharged to home ambulatory. rv 21:03 Condition: good 21:03 Discharge instructions given to patient, Instructed on discharge instructions, follow up and referral plans. medication usage, Demonstrated understanding of instructions, follow-up care, medications, Prescriptions given X 2. 21:04 Patient left the ED. rv Signatures: Dispatcher [employer] EDNatalee Hoff RN RN Margarette Saenz Kimberlee kw Alzahri, Mohammad, MD MD ma2 Akash Medina RN RN rv
--- NOTE | 2018-05-06 20:50 | EDPHYS ---
Physician Documentation [facility] Name: Leandra Staton Age: 33 yrs Sex: Male : 1985 Arrival Date: 05/06/2018 Time: 19:37 Bed 25 Private MD: ED Physician Kassy Bojorquez HPI: 05/06 20:22 This 33 yrs old Male presents to ER via Ambulatory with complaints of Feet ma2 Swelling. 20:22 The patient presents with pain. The complaints affect the right foot. Onset: The ma2 symptoms/episode began/occurred gradually, 2 day(s) ago. Associated signs and symptoms: Pertinent positives: swelling, Pertinent negatives: calf tenderness, nausea, numbness, tingling, warmth. Severity of symptoms: At their worst the symptoms were moderate, in the emergency department the symptoms are unchanged. The patient has experienced similar episodes in the past. Historical: - Allergies: 19:57 No Known Allergies; aj1 - Home Meds: 19:57 None [Active]; aj1 - PMHx: 19:57 Gout; Hypertension; aj1 - PSHx: 19:57 None; aj1 - Immunization history:: Flu vaccine is not up to date. - Social history:: Smoking status: Patient/guardian denies using tobacco, Patient/guardian denies using alcohol, street drugs, The patient lives with family. - Ebola Screening: : Patient denies travel to an Ebola-affected area in the 21 days before illness onset. - Family history:: not pertinent. ROS: 20:22 MS/extremity: Positive for decreased range of motion, swelling, Negative for abrasion, ma2 bite, ecchymosis, warmth, acute changes. 20:22 Constitutional: Negative for fever, chills, and weight loss, ENT: Negative for injury, pain, and discharge, Respiratory: Negative for shortness of breath, cough, wheezing, and pleuritic chest pain. 20:22 All other systems are negative. Exam: 20:22 Constitutional: This is a well developed, well nourished patient who is awake, alert, ma2 and in no acute distress. Head/Face: Normocephalic, atraumatic. Chest/axilla: Normal chest wall appearance and motion. Nontender with no deformity. No lesions are appreciated. Cardiovascular: Regular rate and rhythm with a normal S1 and S2. No gallops, murmurs, or rubs. Normal PMI, no JVD. No pulse deficits. Respiratory: Lungs have equal breath sounds bilaterally, clear to auscultation and percussion. No rales, rhonchi or wheezes noted. No increased work of breathing, no retractions or nasal flaring. Abdomen/GI: Soft, non-tender, with normal bowel sounds. No distension or tympany. No guarding or rebound. No evidence of tenderness throughout. 20:22 Musculoskeletal/extremity: ROM: no acute changes, right great toe edema and ttp at PIP. Vital Signs: 19:57 BP 141 / 91; Pulse 92; Resp 18; Temp 98.7; Pulse Ox 97% on R/A; Weight 108.86 kg (R); aj1 Height 5 ft. 8 in. (172.72 cm) (R); Pain 10; 19:57 Body Mass Index 36.49 (108.86 kg, 172.72 cm) [facility] [place] MDM: 19:51 Patient medically screened. ma2 20:22 Differential diagnosis: fracture, sprain, arthritis, gout. ma2 20:49 Counseling: I had a detailed discussion with the patient and/or guardian regarding: the ar2 historical points, exam findings, and any diagnostic results supporting the discharge/admit diagnosis, the presence of at least one elevated blood pressure reading (>120/80) during this emergency department visit, the need for outpatient follow up. 20:50 Data reviewed: vital signs, nurses notes. ar2 05/06 20:03 Order name: Foot Right 2 View XRAY; Complete Time: 20:49 ma2 Administered Medications: No medications were administered Disposition: 05/06/18 20:50 Discharged to Home. Impression: Pain in right toe(s). - Condition is Stable. - Discharge Instructions: Musculoskeletal Pain. - Prescriptions for indomethacin 25 mg Oral capsule - take 1 capsule by ORAL route 3 times per day with food; 21 capsule. Tylenol- Codeine #3 300-30 mg Oral Tablet - take 2 tablet by ORAL route every 6 hours As needed; 30 tablet. - Medication Reconciliation Form, Thank You Letter, Antibiotic Education, Prescription Opioid Use form. - Work release form (05/06/18 22:11). mw2 - Follow up: Private Physician; When: Tomorrow; Reason: Continuance of care. Signatures: Dispatcher [employer] EDNatalee Hoff RN RN aj1 Kassy Bojorquez MD MD ma2 Akash Medina RN RN rv Fatimah Feliciano mw2 Corrections: (The following items were deleted from the chart) 20:18 20:03 Foot Left 3 View+RAD.RAD.BRZ ordered. [facility] 21:04 20:50 05/06/2018 20:50 Discharged to Home. Impression: Pain in right toe(s). Condition rv is Stable. Prescriptions for indomethacin 25 mg Oral capsule - take 1 capsule by ORAL route 3 times per day with food; 21 capsule. and Forms are Medication Reconciliation Form, Thank You Letter, Antibiotic Education, Prescription Opioid Use. Follow up: Private Physician; When: Tomorrow; Reason: Continuance of care. ma2
[2018-05-07 15:00] VITALS: BP 141/91; TEMP 98.7; O2SAT 97
== END 2018-05-06 21:04 | disposition home or self-care (01) ==
LOC: ER 19:35
DX: M79.674 Pain in right toe(s) (principal); I10 Essential (primary) hypertension
CPT/HCPCS: 99283

== ENCOUNTER 2018-08-19 11:03 | Emergency (ER) | payer SELFPAY ==
--- NOTE | 2018-08-19 12:49 | ER ---
Nurse's Notes [facility] Name: Leandra Staton Age: 33 yrs Sex: Male : 1985 Arrival Date: 08/19/2018 Time: 11:05 Bed 16 Private MD: Diagnosis: Acute upper respiratory infection, unspecified Presentation: 08/19 11:17 Presenting complaint: Patient states: bodyaches, fever Tmax 101 x 2 days. Aleve taken sv at 1000. Transition of care: patient was not received from another setting of care. Onset of symptoms was August 16, 2018. Care prior to arrival: None. 11:17 Method Of Arrival: Ambulatory sv 11:17 Acuity: STEPHANIE 4 sv 11:30 Risk Assessment: Do you want to hurt yourself or someone else? Patient reports no jl7 desire to harm self or others. Initial Sepsis Screen: Does the patient meet any 2 criteria? No. Patient's initial sepsis screen is negative. Does the patient have a suspected source of infection? No. Patient's initial sepsis screen is negative. Triage Assessment: 11:20 General: Appears in no apparent distress. comfortable, Behavior is calm, cooperative, sv appropriate for age. General: Reports fever for 1-2 days. Pain: Denies pain. Neuro: Level of Consciousness is awake, alert, obeys commands, Oriented to person, place, time, situation, Moves all extremities. Full function Gait is steady. Respiratory: Respiratory effort is even, unlabored, Respiratory pattern is regular, symmetrical. Historical: - Allergies: 11:18 No Known Allergies; sv - PMHx: 11:18 Gout; Hypertension; sv - PSHx: 11:18 None; sv - Immunization history:: Adult Immunizations unknown. - Social history:: Smoking status: unknown. - Ebola Screening: : No symptoms or risks identified at this time. Screenin:34 Abuse screen: Denies threats or abuse. Denies injuries from another. Nutritional jl7 screening: No deficits noted. Tuberculosis screening: No symptoms or risk factors identified. Fall Risk None identified. Assessment: 11:34 General: Appears in no apparent distress. uncomfortable, Behavior is calm, cooperative, jl7 appropriate for age. Neuro: Level of Consciousness is awake, alert, obeys commands, Oriented to person, place, time, situation. Cardiovascular: Patient's skin is warm and dry. Respiratory: Airway is patent Respiratory effort is even, unlabored, Respiratory pattern is regular, symmetrical. Derm: Skin is pink, warm \T\ dry. 12:30 Reassessment: Patient appears in no apparent distress at this time. No changes from jl7 previously documented assessment. Patient and/or family updated on plan of care and expected duration. Pain level reassessed. Patient is alert, oriented x 3, equal unlabored respirations, skin warm/dry/pink. Vital Signs: 11:18 Pulse 72; Resp 20; Temp 98.4; Pulse Ox 96% ; Weight 113.4 kg; Height 5 ft. 8 in. sv (172.72 cm); Pain 0/10; 11:18 Body Mass Index 38.01 (113.40 kg, 172.72 cm) sv ED Course: 11:05 Patient arrived in ED. rg4 11:18 Triage completed. sv 11:19 Arm band placed on. sv 11:26 Anisha Jane FNP-C [facility]. kb 11:26 Kassy Bojorquez MD is Attending Physician. kb 11:28 Jono Simpson, RN is Primary Nurse. jl7 11:34 Patient has correct armband on for positive identification. Bed in low position. Call jl7 light in reach. Side rails up X 1. 11:34 Flu and/or RSV swab sent to lab. jl7 12:58 No provider procedures requiring assistance completed. Patient did not have IV access jl7 during this emergency room visit. Administered Medications: No medications were administered Outcome: 12:48 Discharge ordered by MD. kb 12:58 Discharged to home ambulatory. jl7 12:58 Condition: stable 12:58 Discharge instructions given to patient, Instructed on discharge instructions, follow up and referral plans. medication usage, Demonstrated understanding of instructions, follow-up care, medications, Prescriptions given X 1. 12:59 Patient left the ED. jl7 Signatures: Anisha Jane FNP-C FNP-Ckb Verde, Stephanie, RN RN Autumn Malhotra 4 Jono Simpson RN RN jl7 Corrections: (The following items were deleted from the chart) 11:18 11:17 Presenting complaint: Patient states: bodyaches x 2 days. sv sv
--- NOTE | 2018-08-19 12:50 | EDPHYS ---
Physician Documentation [facility] Name: Leandra Staton Age: 33 yrs Sex: Male : 1985 Arrival Date: 08/19/2018 Time: 11:05 Bed 16 Private MD: ED Physician Kassy Bojorquez HPI: 08/19 12:46 This 33 yrs old Male presents to ER via Ambulatory with complaints of Body kb Aches. 12:47 The patient or guardian reports cough, described as mild, flu symptoms, myalgias, kb chills. Onset: The symptoms/episode began/occurred 3 day(s) ago. Severity of symptoms: At their worst the symptoms were mild, moderate, in the emergency department the symptoms are unchanged. Modifying factors: The symptoms are alleviated by nothing, the symptoms are aggravated by nothing. Associated signs and symptoms: The patient has no apparent associated signs or symptoms. The patient has not experienced similar symptoms in the past. The patient has not recently seen a physician. Pt reports body aches, chills and slight cough for a few days. States he also needs a new prescription for allopurinol so he doesn't get a gout flare-up. Historical: - Allergies: 11:18 No Known Allergies; sv - PMHx: 11:18 Gout; Hypertension; sv - PSHx: 11:18 None; sv - Immunization history:: Adult Immunizations unknown. - Social history:: Smoking status: unknown. - Ebola Screening: : No symptoms or risks identified at this time. ROS: 12:45 ENT: Negative for injury, pain, and discharge, Neck: Negative for injury, pain, and kb swelling, Cardiovascular: Negative for chest pain, palpitations, and edema, Abdomen/GI: Negative for abdominal pain, nausea, vomiting, diarrhea, and constipation, MS/Extremity: Negative for injury and deformity, Skin: Negative for injury, rash, and discoloration, Neuro: Negative for headache, weakness, numbness, tingling, and seizure. 12:45 Constitutional: Positive for body aches, chills, malaise, Negative for fatigue, fever, poor PO intake, weight loss. 12:45 Respiratory: Positive for cough, Negative for dyspnea on exertion, hemoptysis, orthopnea, pleurisy, shortness of breath, sputum production, wheezing. Exam: 12:46 Constitutional: This is a well developed, well nourished patient who is awake, alert, kb and in no acute distress. Head/Face: Normocephalic, atraumatic. ENT: Nares patent. No nasal discharge, no septal abnormalities noted. Tympanic membranes are normal and external auditory canals are clear. Oropharynx with no redness, swelling, or masses, exudates, or evidence of obstruction, uvula midline. Mucous membranes moist. Neck: Trachea midline, no thyromegaly or masses palpated, and no cervical lymphadenopathy. Supple, full range of motion without nuchal rigidity, or vertebral point tenderness. No Meningismus. Chest/axilla: Normal chest wall appearance and motion. Nontender with no deformity. No lesions are appreciated. Cardiovascular: Regular rate and rhythm with a normal S1 and S2. No gallops, murmurs, or rubs. Normal PMI, no JVD. No pulse deficits. Respiratory: Lungs have equal breath sounds bilaterally, clear to auscultation and percussion. No rales, rhonchi or wheezes noted. No increased work of breathing, no retractions or nasal flaring. Abdomen/GI: Soft, non-tender, with normal bowel sounds. No distension or tympany. No guarding or rebound. No evidence of tenderness throughout. Skin: Warm, dry with normal turgor. Normal color with no rashes, no lesions, and no evidence of cellulitis. MS/ Extremity: Pulses equal, no cyanosis. Neurovascular intact. Full, normal range of motion. Neuro: Awake and alert, GCS 15, oriented to person, place, time, and situation. Cranial nerves II-XII grossly intact. Motor strength 5/5 in all extremities. Sensory grossly intact. Cerebellar exam normal. Normal gait. Vital Signs: 11:18 Pulse 72; Resp 20; Temp 98.4; Pulse Ox 96% ; Weight 113.4 kg; Height 5 ft. 8 in. sv (172.72 cm); Pain 0/10; 11:18 Body Mass Index 38.01 (113.40 kg, 172.72 cm) sv MDM: 11:26 Patient medically screened. kb 12:45 Data reviewed: vital signs, nurses notes. Data interpreted: Pulse oximetry: on room air kb is 96 %. Interpretation: normal. Counseling: I had a detailed discussion with the patient and/or guardian regarding: the historical points, exam findings, and any diagnostic results supporting the discharge/admit diagnosis, lab results, the need for outpatient follow up, a family practitioner, to return to the emergency department if symptoms worsen or persist or if there are any questions or concerns that arise at home. 08/19 11:20 Order name: Flu; Complete Time: 12:27 sv Administered Medications: No medications were administered Disposition: 17:41 Co-signature as Attending Physician, Kassy Bojorquez MD. ma2 Disposition: 08/19/18 12:48 Discharged to Home. Impression: Acute upper respiratory infection, unspecified. - Condition is Stable. - Discharge Instructions: Upper Respiratory Infection, Adult, [id number]. - Prescriptions for Allopurinol 100 mg Oral Tablet - take 1 tablet by ORAL route once daily; 30 tablet. - Medication Reconciliation Form, Thank You Letter, Antibiotic Education, Prescription Opioid Use, Work release form form. - Follow up: Emergency Department; When: As needed; Reason: Worsening of condition. Follow up: Private Physician; When: 2 - 3 days; Reason: Recheck today's complaints, Continuance of care, Re-evaluation by your physician. Signatures: Dispatcher [employer] EDAnisha Tavarez, CONNORC CORINA-Itzel Robertson RN RN sv Leal, Jahala, RN RN jl7 Alzahri, Mohammad, MD MD ma2 Corrections: (The following items were deleted from the chart) 12:59 12:48 08/19/2018 12:48 Discharged to Home. Impression: Acute upper respiratory jl7 infection, unspecified. Condition is Stable. Prescriptions for Allopurinol 100 mg Oral Tablet - take 1 tablet by ORAL route once daily; 30 tablet. and Forms are Medication Reconciliation Form, Thank You Letter, Antibiotic Education, Prescription Opioid Use. Follow up: Emergency Department; When: As needed; Reason: Worsening of condition. Follow up: Private Physician; When: 2 - 3 days; Reason: Recheck today's complaints, Continuance of care, Re-evaluation by your physician. kb
[2018-08-19 13:13] VITALS: TEMP 98.4; O2SAT 96
== END 2018-08-19 12:59 | disposition home or self-care (01) ==
LOC: ER 11:03
DX: J06.9 Acute upper respiratory infection, unspecified (principal); M10.9 Gout, unspecified; I10 Essential (primary) hypertension
CPT/HCPCS: 87804; 99283

== ENCOUNTER 2018-08-23 09:13 | Emergency (ER) | payer SELFPAY ==
--- NOTE | 2018-08-23 10:28 | ER ---
Nurse's Notes [facility] Name: Leandra Staton Age: 33 yrs Sex: Male : 1985 Arrival Date: 08/23/2018 Time: 09:15 Bed 16 Private MD: None, None Diagnosis: Hordeolum (externum) (internum) of eyelid Presentation: 08/23 09:24 Presenting complaint: Left eye pain x 2 days. Denies itching/drainage/injury. hb Transition of care: patient was not received from another setting of care. Onset of symptoms was August 22, 2018. Risk Assessment: Do you want to hurt yourself or someone else? Patient reports no desire to harm self or others. Initial Sepsis Screen: Does the patient meet any 2 criteria? No. Patient's initial sepsis screen is negative. Does the patient have a suspected source of infection? No. Patient's initial sepsis screen is negative. Care prior to arrival: None. 09:24 Method Of Arrival: Ambulatory hb 09:24 Acuity: STEPHANIE 4 hb Triage Assessment: 09:26 General: Appears in no apparent distress. Behavior is calm, cooperative. Pain:. Neuro: ls4 No deficits noted. Respiratory: No deficits noted. GI: No deficits noted. : No deficits noted. Derm: No deficits noted. Musculoskeletal: No deficits noted. Historical: - Allergies: 09:26 No Known Allergies; hb - Home Meds: 09:26 Allopurinol Oral [Active]; hb - PMHx: 09:26 Gout; Hypertension; hb - PSHx: 09:26 None; hb - Immunization history:: Adult Immunizations up to date. - Social history:: Smoking status: Patient/guardian denies using tobacco. - Ebola Screening: : No symptoms or risks identified at this time. Screenin:28 Abuse screen: Denies threats or abuse. Denies injuries from another. Nutritional ls4 screening: No deficits noted. Tuberculosis screening: No symptoms or risk factors identified. Fall Risk None identified. Assessment: 09:27 General: Appears in no apparent distress. Neuro: No deficits noted. Cardiovascular: No ls4 deficits noted. Respiratory: No deficits noted. EENT: Eyes LEFT EYE PAIN. . 10:30 Reassessment: Patient and/or family updated on plan of care and expected duration. Pain ls4 level reassessed. Patient is alert, oriented x 3, equal unlabored respirations, skin warm/dry/pink. Vital Signs: 09:26 BP 151 / 72; Pulse 86; Resp 16; Temp 98.1; Pulse Ox 100% on R/A; Pain 5/10; hb 10:40 BP 138 / 70; Pulse 18; Resp 16; Temp 98.6(O); Pulse Ox 99% ; Pain 3/10; ls4 ED Course: 09:15 Patient arrived in ED. mr 09:16 None, None is Private Physician. mr 09:25 Triage completed. hb 09:26 Tanvi Lance, RN is Primary Nurse. ls4 09:26 Arm band placed on. hb 09:28 Patient has correct armband on for positive identification. Placed in gown. Bed in low ls4 position. Side rails up X 1. Warm blanket given. 09:28 No provider procedures requiring assistance completed. ls4 10:07 Terence Wheeler PA [facility] 10:07 Quinton Andrade MD is Attending Physician. jm 10:27 Michael Gomez MD is Referral Physician. [facility] 10:41 Patient did not have IV access during this emergency room visit. ls4 Administered Medications: No medications were administered Outcome: 10:28 Discharge ordered by MD. [facility] 10:41 Discharged to home ambulatory. ls4 10:41 Condition: stable 10:41 Discharge instructions given to patient, Instructed on discharge instructions, follow up and referral plans. medication usage, Demonstrated understanding of instructions, follow-up care, Prescriptions given X 1. 10:45 Patient left the ED. ls4 Signatures: Terence Wheeler PA PA jmm Rivera, Mary ClayEtta, RN RN Tanvi Lance, RN RN ls4
--- NOTE | 2018-08-23 10:28 | EDPHYS ---
Physician Documentation [facility] Name: Leandra Staton Age: 33 yrs Sex: Male : 1985 Arrival Date: 08/23/2018 Time: 09:15 Bed 16 Private MD: None, None ED Physician Quinton Andrade HPI: 08/23 10:20 This 33 yrs old Male presents to ER via Ambulatory with complaints of Eye jmm Problem. 10:20 The patient is experiencing pain. Onset: The symptoms/episode began/occurred gradually, jmm 1 day(s) ago. Duration: the symptoms are continuous. Aggravated by blinking, Alleviated by nothing. Associated signs and symptoms: Pertinent negatives: fever. This is a 33 year old male with a history of htn that presents to the ED with complaints of left upper eyelid swelling. Patient denies changes in vision, discharge, or fever. . Historical: - Allergies: 09:26 No Known Allergies; hb - Home Meds: 09:26 Allopurinol Oral [Active]; hb - PMHx: 09:26 Gout; Hypertension; hb - PSHx: 09:26 None; hb - Immunization history:: Adult Immunizations up to date. - Social history:: Smoking status: Patient/guardian denies using tobacco. - Ebola Screening: : No symptoms or risks identified at this time. ROS: 10:20 Constitutional: Negative for fever, chills, and weight loss. jmm 10:20 Eyes: Positive for pain, Negative for vision loss, visual disturbance. 10:20 All other systems are negative. Exam: 10:20 Constitutional: This is a well developed, well nourished patient who is awake, alert, jmm and in no acute distress. Head/Face: atraumatic. 10:20 Neck: Trachea midline, Supple Chest/axilla: Normal chest wall appearance and motion. Cardiovascular: Regular rate and rhythm. No edema appreciated Respiratory: Normal respirations, no respiratory distress appreciated Abdomen/GI: Non distended, soft Back: Normal ROM Skin: General appearance color normal MS/ Extremity: Moves all extremities, no obvious deformities appreciated, no edema noted to the lower extremities Neuro: Awake and alert, normal gait Psych: Behavior is normal, Mood is normal, Patient is cooperative and pleasant 10:20 Eyes: mild swelling is appreciated to the left upper lid. no erythema or induration is appreciated. . Vital Signs: 09:26 BP 151 / 72; Pulse 86; Resp 16; Temp 98.1; Pulse Ox 100% on R/A; Pain 5/10; hb 10:40 BP 138 / 70; Pulse 18; Resp 16; Temp 98.6(O); Pulse Ox 99% ; Pain 3/10; ls4 MDM: 10:17 Patient medically screened. [facility] 10:20 Data reviewed: vital signs, nurses notes. Counseling: I had a detailed discussion with hipolito the patient and/or guardian regarding: the historical points, exam findings, and any diagnostic results supporting the discharge/admit diagnosis, the need for outpatient follow up, to return to the emergency department if symptoms worsen or persist or if there are any questions or concerns that arise at home. ED course: Symptoms appear consistent with a stye. Patient given return precautions for worsening symptoms. Patient understood and agrees with the plan of care. . Administered Medications: No medications were administered Disposition: 16:07 Co-signature as Attending Physician, Quinton Andrade MD I agree with the assessment and kdr plan of care. Disposition: 08/23/18 10:28 Discharged to Home. Impression: Hordeolum (externum) (internum) of eyelid. - Condition is Stable. - Discharge Instructions: Stye. - Prescriptions for Erythromycin 5 mg/gram (0.5 %) Ophthalmic Ointment - apply 1 centimeter by OPHTHALMIC route 2-3 times daily for 7 days; 1 tube. - Medication Reconciliation Form, Thank You Letter, Antibiotic Education, Prescription Opioid Use, Work release form form. - Follow up: Michael Gomez MD; When: 2 - 3 days; Reason: Recheck today's complaints, Continuance of care, Re-evaluation by your physician. Signatures: Quinton Andrade MD MD kdr Mickail, Joel, PA PA [facility] Etta Clay RN RN Tanvi Leon RN RN ls4 Corrections: (The following items were deleted from the chart) 10:45 10:28 08/23/2018 10:28 Discharged to Home. Impression: Hordeolum (externum) (internum) ls4 of eyelid. Condition is Stable. Forms are Medication Reconciliation Form, Thank You Letter, Antibiotic Education, Prescription Opioid Use. Follow up: Michael Gomez; When: 2 - 3 days; Reason: Recheck today's complaints, Continuance of care, Re-evaluation by your physician. lucie
[2018-08-23 10:53] VITALS: BP 138/70; TEMP 98.6; O2SAT 99
== END 2018-08-23 10:45 | disposition home or self-care (01) ==
LOC: ER 09:13
DX: H00.024 Hordeolum internum left upper eyelid (principal); M10.9 Gout, unspecified; I10 Essential (primary) hypertension
CPT/HCPCS: 99282

== ENCOUNTER 2018-09-25 14:43 | Emergency (ER) | payer SELFPAY ==
[2018-09-25] MEDS ORDERED: KETOROLAC 30 MG/ML INJ ONE (15:47)
--- NOTE | 2018-09-25 15:50 | EDPHYS ---
Physician Documentation [facility] Name: Leandra Staton Age: 33 yrs Sex: Male : 1985 Arrival Date: 09/25/2018 Time: 14:45 Bed 30 Private MD: None, None ED Physician Quinton Andrade HPI: 09/25 15:43 This 33 yrs old Male presents to ER via Ambulatory with complaints of Ankle jmm Injury. 15:43 The patient presents with pain. Onset: The symptoms/episode began/occurred gradually, 2 jmm day(s) ago. Associated signs and symptoms: Pertinent negatives: fever. This is a 33 year old male with a history of gout, htn that presents to the ED with complaints of right lateral ankle pain beginning 2 days ago. Patient denies fever, denies known injury. Patient is currently taking allopurinol. . Historical: - Allergies: 15:05 No Known Allergies; tw2 - Home Meds: 15:05 Allopurinol Oral [Active]; tw2 - PMHx: 15:05 Gout; Hypertension; tw2 - PSHx: 15:05 None; tw2 - Immunization history:: Adult Immunizations up to date. - Social history:: Smoking status: Patient/guardian denies using tobacco, Patient uses alcohol, occasionally. - Ebola Screening: : Patient denies travel to an Ebola-affected area in the 21 days before illness onset. ROS: 15:43 Constitutional: Negative for fever, chills, and weight loss, Cardiovascular: Negative jmm for chest pain, palpitations, and edema, Respiratory: Negative for shortness of breath, cough, wheezing, and pleuritic chest pain. 15:43 MS/extremity: Positive for pain. 15:43 All other systems are negative. Exam: 15:43 Constitutional: This is a well developed, well nourished patient who is awake, alert, jmm and in no acute distress. Head/Face: atraumatic. Eyes: EOMI, no conjunctival erythema appreciated ENT: Moist Mucus Membranes Neck: Trachea midline, Supple Chest/axilla: Normal chest wall appearance and motion. Cardiovascular: Regular rate and rhythm. No edema appreciated Respiratory: Normal respirations, no respiratory distress appreciated Abdomen/GI: Non distended, soft Back: Normal ROM Skin: General appearance color normal 15:43 Musculoskeletal/extremity: mild right lateral ankle tenderness, no bony tenderness appreciated, no swelling or induration appreciated, compartments are soft, full dorsalis pulse, NVI. 15:43 Skin: Appearance: Color: normal in color. 15:43 Neuro: Orientation: is normal, Mentation: is normal, Memory: is normal. 15:43 Psych: Behavior/mood is pleasant, cooperative. Vital Signs: 15:04 BP 125 / 87; Pulse 80; Resp 17; Temp 97.6(TE); Pulse Ox 98% on R/A; Weight 113.4 kg tw2 (R); Height 5 ft. 8 in. (172.72 cm); Pain 5/10; 16:00 BP 122 / 72; Pulse 78; Resp 16; Pulse Ox 98% on R/A; Pain 3/10; sg 15:04 Body Mass Index 38.01 (113.40 kg, 172.72 cm) tw2 MDM: 15:28 Patient medically screened. [facility] 15:43 Data reviewed: vital signs, nurses notes. Counseling: I had a detailed discussion with lucie the patient and/or guardian regarding: the historical points, exam findings, and any diagnostic results supporting the discharge/admit diagnosis, the need for outpatient follow up, to return to the emergency department if symptoms worsen or persist or if there are any questions or concerns that arise at home. ED course: No bony tenderness appreciated, no known trauma, symptoms may be due to gout. Patient is advised to discontinue allopurinol and begin antiinflammatory. Patient given return precautions for fever, increased pain, ect. Patient understood and agrees with the plan of care. . Administered Medications: 15:38 Drug: Ketorolac 30 mg Route: IM; Site: right deltoid; sg Disposition: 09/26 07:39 Co-signature as Attending Physician, Quinton Andrade MD I agree with the assessment and kdr plan of care. Disposition: 09/25/18 15:48 Discharged to Home. Impression: Pain in right ankle and joints of right foot. - Condition is Stable. - Discharge Instructions: Joint Pain, Gout. - Prescriptions for indomethacin 75 mg Oral capsule, extended release - take 1 capsule by ORAL route 2 times per day for 7 days; 20 capsule. - Medication Reconciliation Form, Thank You Letter, Antibiotic Education, Prescription Opioid Use, Work release form form. - Follow up: Arnulfo Boyd MD; When: 2 - 3 days; Reason: Recheck today's complaints, Continuance of care, Re-evaluation by your physician. - Notes: Please discontinue allopurinol while you have ankle pain. Please return to the ED if you develop increased pain or fever. Signatures: Albert Gallardo, RN RN Quinton Smith MD MD [facility] Terence Wheeler PA PA jmm Solis, Maria ms Wise, Tara, RN RN tw2 Corrections: (The following items were deleted from the chart) 09/25 16:05 15:48 09/25/2018 15:48 Discharged to Home. Impression: Pain in right ankle and joints ms of right foot. Condition is Stable. Forms are Work release form, Medication Reconciliation Form, Thank You Letter, Antibiotic Education, Prescription Opioid Use. Follow up: Dr. Arnulfo Boyd; When: 2 - 3 days; Reason: Recheck today's complaints, Continuance of care, Re-evaluation by your physician. lucie
--- NOTE | 2018-09-25 15:50 | ER ---
Nurse's Notes [facility] Name: Leandra Staton Age: 33 yrs Sex: Male : 1985 Arrival Date: 09/25/2018 Time: 14:45 Bed 30 Private MD: None, None Diagnosis: Pain in right ankle and joints of right foot Presentation: 09/25 15:03 Presenting complaint: Patient states: my RIGHT ankle hurts, i dont know if i twisted it tw2 or if it is gout, it started like 2 days ago, i didn't want to even walk 2 days ago but it feels a little better. Transition of care: patient was not received from another setting of care. Onset of symptoms was September 25, 2018. Risk Assessment: Do you want to hurt yourself or someone else? Patient reports no desire to harm self or others. Initial Sepsis Screen: Does the patient meet any 2 criteria? No. Patient's initial sepsis screen is negative. Does the patient have a suspected source of infection? No. Patient's initial sepsis screen is negative. Care prior to arrival: None. 15:03 Method Of Arrival: Ambulatory tw2 15:03 Acuity: STEPHANIE 4 tw2 Triage Assessment: 15:05 General: Appears in no apparent distress. Behavior is calm, cooperative, appropriate tw2 for age. Pain: Complains of pain in right foot, right ankle and anterior aspect of right ankle. Musculoskeletal: Reports pain in right foot swelling to right ankle. Historical: - Allergies: 15:05 No Known Allergies; tw2 - Home Meds: 15:05 Allopurinol Oral [Active]; tw2 - PMHx: 15:05 Gout; Hypertension; tw2 - PSHx: 15:05 None; tw2 - Immunization history:: Adult Immunizations up to date. - Social history:: Smoking status: Patient/guardian denies using tobacco, Patient uses alcohol, occasionally. - Ebola Screening: : Patient denies travel to an Ebola-affected area in the 21 days before illness onset. Screenin:30 Abuse screen: Denies threats or abuse. Denies injuries from another. Nutritional sg screening: No deficits noted. Tuberculosis screening: No symptoms or risk factors identified. Never had TB. Fall Risk None identified. Assessment: 15:30 General: Appears in no apparent distress. well groomed, well developed, well nourished, sg Behavior is calm, cooperative, appropriate for age. Pain: Complains of pain in right ankle Quality of pain is described as aching, tender, Is intermittent. Neuro: No deficits noted. Cardiovascular: Capillary refill is brisk in bilateral fingers Patient's skin is warm and dry. Chest pain is denied. Respiratory: Airway is patent Respiratory effort is even, unlabored, Respiratory pattern is regular, symmetrical. GI: Abdomen is round non-distended, Reports normal bowel habits, tolerance of fluids, tolerance of food. : No signs and/or symptoms were reported regarding the genitourinary system. EENT: No signs and/or symptoms were reported regarding the EENT system. Derm: Skin is pink, warm \T\ dry. Musculoskeletal: Circulation, motion, and sensation intact. Range of motion: intact in all extremities, Swelling absent. Vital Signs: 15:04 BP 125 / 87; Pulse 80; Resp 17; Temp 97.6(TE); Pulse Ox 98% on R/A; Weight 113.4 kg tw2 (R); Height 5 ft. 8 in. (172.72 cm); Pain 5/10; 16:00 BP 122 / 72; Pulse 78; Resp 16; Pulse Ox 98% on R/A; Pain 3/10; sg 15:04 Body Mass Index 38.01 (113.40 kg, 172.72 cm) tw2 ED Course: 14:45 Patient arrived in ED. dl4 14:45 None, None is Private Physician. dl4 15:04 Triage completed. tw2 15:04 Arm band placed on. tw2 15:08 Terence Wheeler [facility] 15:08 uQinton Andrade MD is Attending Physician. [facility] 15:12 Albert Gallardo, KING is Primary Nurse. sg 15:40 No provider procedures requiring assistance completed. Patient did not have IV access sg during this emergency room visit. 15:48 Arnulfo Boyd MD is Referral Physician. [facility] Administered Medications: 15:38 Drug: Ketorolac 30 mg Route: IM; Site: right deltoid; sg Outcome: 15:48 Discharge ordered by . [facility] 16:05 Patient left the ED. ms Signatures: Albert Gallardo, RN RN sg Terence Wheeler PA PA jmm Solis, Maria ms Ana Emerson RN RN tw2 Chong Crisostomo dl4
[2018-09-25 16:09] VITALS: BP 125/87; TEMP 97.6; O2SAT 98
== END 2018-09-25 16:05 | disposition home or self-care (01) ==
LOC: ER 14:43
DX: M25.571 Pain in right ankle and joints of right foot (principal); I10 Essential (primary) hypertension
CPT/HCPCS: 96372; 99282

== ENCOUNTER 2018-10-14 08:29 | Emergency (ER) | payer SELFPAY ==
[2018-10-14] MEDS ORDERED: NA CHLORIDE 0.9% 1,000 ML ONE (08:52)
[2018-10-14] MEDS ORDERED: ASPIRIN 81 MG CHEWABLE TABLET ONE (08:52)
--- NOTE | 2018-10-14 09:09 | RAD REPORT ---
EXAM DESCRIPTION: RAD - Chest Single View - 10/14/2018 8:58 am CLINICAL HISTORY: Shortness of breath COMPARISON: September 2017 TECHNIQUE: AP portable chest image was obtained 0846 hours . FINDINGS: Lungs are clear. Heart and vasculature are normal. No measurable pleural effusion and no p neumothorax. No acute bony abnormality seen. No acute aortic findings suspected. IMPRESSION: No acute cardiopulmonary process. No significant interval change.
[2018-10-14 09:14] LABS: Absolute Lymphocytes (CBC) 1.8 K/uL (0.7-4.9); Absolute Monocytes 0.7 K/uL (0.1-1.3); Absolute Neutrophil 7.1 K/uL (1.8-8.0); Basophils % 0.5 % (0-1.3); Hematocrit 45.7 % (39.6-49.0); Lymphocytes % 18.3 % (15.3-44.8); MPV 10.2 fL (7.6-11.3); Monocytes % 7.2 % (3.3-12.3); RBC Red Blood Cell Count 5.22 M/uL (4.33-5.43)
[2018-10-14 09:17] LABS: Protime INR 1.05
[2018-10-14 09:44] LABS: Urine Blood TRACE (NEG); Urine Glucose NEGATIVE (NEG); Urine Protein 1+ (NEG)
[2018-10-14 10:12] LABS: ALT/SGPT 98 U/L (12-78); AST/SGOT 43 U/L (15-37); Alkaline Phosphatase 80 U/L (45-117); BUN Blood Urea Nitrogen 16 mg/dL (7-18); Bicarbonate 28 mmol/L (21-32); Bilirubin Direct 0.2 mg/dL (0-0.2); Bilirubin Total 0.6 mg/dL (0.2-1.0); Glucose Level 95 mg/dL (74-106); Magnesium 2.1 mg/dL (1.8-2.4); NT PRO-BNP 7 pg/mL (<125); Potassium 3.9 mmol/L (3.5-5.1); Protein, Total 8.2 g/dL (6.4-8.2); Sodium Level 141 mmol/L (136-145); Troponin (Emerg Dept Use Only) < 0.02 ng/mL (0.0-0.045)
--- NOTE | 2018-10-14 10:19 | ER ---
Nurse's Notes [facility] Name: Leandra Staton Age: 33 yrs Sex: Male : 1985 Arrival Date: 10/14/2018 Time: 08:31 Bed 19 Private MD: Diagnosis: Shortness of breath Presentation: 10/14 08:56 Acuity: STEPHANIE 3 hj 08:57 Presenting complaint: Patient states: of shortness of breath. Stated that he was at a pc1 work meeting when he felt like he could not catch his breath. Stated that he as been exposed to stressors recently. Stated that he is stressed at work and has recently gone through a break up. Transition of care: patient was not received from another setting of care. Onset of symptoms was October 14, 2018 at 08:10. Risk Assessment: Do you want to hurt yourself or someone else? Patient reports no desire to harm self or others. Initial Sepsis Screen: Does the patient meet any 2 criteria? No. Patient's initial sepsis screen is negative. Does the patient have a suspected source of infection? No. Patient's initial sepsis screen is negative. Care prior to arrival: None. 08:57 Method Of Arrival: EMS: [facility] pc1 Triage Assessment: 09:02 General: Appears distressed, uncomfortable, Behavior is calm, cooperative. Pain: Denies pc1 pain. EENT: No signs and/or symptoms were reported regarding the EENT system. Neuro: Level of Consciousness is awake, alert, obeys commands, Oriented to person, place, time, situation. Cardiovascular: Denies chest pain, Heart tones S1 S2 present Pulses are 2+ in right radial artery and left radial artery. Respiratory: Reports shortness of breath at rest since approximately 08:10 Airway is patent Trachea midline Respiratory effort is even, unlabored, Respiratory pattern is regular, Breath sounds are clear bilaterally. in right upper lobe, left upper lobe, right middle lobe, left lower lobe, left posterior upper lobe, right posterior upper lobe, left posterior lower lobe and right posterior middle lobe Onset: The symptoms/episode began/occurred this morning, the patient has mild shortness of breath. GI: Abdomen is round non-distended, Bowel sounds present X 4 quads. Abd is soft and non tender X 4 quads. : No signs and/or symptoms were reported regarding the genitourinary system. Derm: Skin is intact, is healthy with good turgor, Skin is dry, Skin is pink, warm \T\ dry. Skin temperature is warm. Musculoskeletal: Circulation, motion, and sensation intact. Capillary refill < 3 seconds, Range of motion: intact in all extremities. Historical: - Allergies: 09:02 No Known Allergies; pc1 - Home Meds: 09:02 Allopurinol Oral [Active]; pc1 - PMHx: 09:02 Gout; Hypertension; pc1 - Immunization history:: Adult Immunizations unknown. - Social history:: Smoking status: Patient/guardian denies using tobacco. - Ebola Screening: : Patient negative for fever greater than or equal to 101.5 degrees Fahrenheit, and additional compatible Ebola Virus Disease symptoms Patient denies exposure to infectious person Patient denies travel to an Ebola-affected area in the 21 days before illness onset No symptoms or risks identified at this time. Screenin:56 Abuse screen: Denies threats or abuse. Denies injuries from another. Nutritional hj screening: No deficits noted. Tuberculosis screening: No symptoms or risk factors identified. Fall Risk None identified. Assessment: 08:56 Cardiovascular: Rhythm is regular. hj 09:08 Reassessment: Patient and/or family updated on plan of care and expected duration. Pain pc1 level reassessed. Patient is alert, oriented x 3, equal unlabored respirations, skin warm/dry/pink. See triage notes. Cardiovascular: Rhythm is sinus rhythm. Respiratory: Airway is patent Respiratory effort is even, unlabored, Respiratory pattern is regular, Breath sounds are clear bilaterally. 10:19 Reassessment: Patient and/or family updated on plan of care and expected duration. Pain hj level reassessed. Patient is alert, oriented x 3, equal unlabored respirations, skin warm/dry/pink. awaiting for results and POC;. Vital Signs: 08:32 BP 141 / 99; Pulse 67; Resp 18; Temp 98.1(O); Pulse Ox 99% on R/A; Weight 113.4 kg; hj Height 5 ft. 8 in. (172.72 cm); 09:30 BP 138 / 87; Pulse 68; Resp 18; Pulse Ox 99% on R/A; hj 10:18 BP 135 / 85; Pulse 78; Resp 18; Pulse Ox 100% on R/A; hj 08:32 Body Mass Index 38.01 (113.40 kg, 172.72 cm) ED Course: 08:31 Patient arrived in ED. hj 08:32 Julius Alvarez, RN is Primary Nurse. hj 08:32 Armando Hope MD is Attending Physician. kenya 08:33 Gay Garcia FNP-C is [facility]. snw 08:56 Missed attempt(s): 20 gauge in right antecubital area. Bleeding controlled, band aid pc1 applied, catheter tip intact. 08:56 Arm band placed on left wrist. hj 08:56 Patient has correct armband on for positive identification. Placed in gown. Bed in low hj position. Call light in reach. Side rails up X 1. 08:58 XRAY Chest (1 view) In Process Unspecified. EDMS 09:00 Initial lab(s) drawn, by me, sent to lab. Inserted saline lock: 20 gauge in right hand, hj using aseptic technique. Blood collected. 09:07 EKG done, by technical staff assistant. reviewed by Gay HODGES. at1 09:09 Triage completed. hj 11:18 IV discontinued, intact, bleeding controlled, No redness/swelling at site. Pressure pc1 dressing applied. 11:21 No provider procedures requiring assistance completed. iw Administered Medications: 08:36 Drug: Aspirin Chewable Tablet 324 mg Route: PO; hj 09:08 Follow up: Response: No adverse reaction hj 09:00 Drug: NS 0.9% 1000 ml Route: IV; Rate: 75 ml/hr; Site: right hand; hj 11:22 Follow up: IV Status: Order to discontinue infusion Outcome: 10:18 Discharge ordered by . snw 11:16 Discharged to home ambulatory. pc1 11:16 Condition: stable 11:16 Discharge instructions given to patient, Instructed on discharge instructions, follow up and referral plans. Demonstrated understanding of instructions, follow-up care. 11:22 Patient left the ED. iw Signatures: Dispatcher [employer] EDME Armando Hope MD MD cha Therrien, Shelly, FNP-C FNP-Csnw Taryn Quintana RN RN iw Jackie Canela, acquisition editor EKG Tat1 Julius Alvarez, KING MAILK Jorge Luis Crabtree pc1 Corrections: (The following items were deleted from the chart) 08:53 08:32 BP 141 / 99; Pulse 67bpm; Resp 18bpm; Pulse Ox 99% RA; Temp 98.1F Oral; hj hj
--- NOTE | 2018-10-14 10:20 | EDPHYS ---
Physician Documentation [facility] Name: Leandra Staton Age: 33 yrs Sex: Male : 1985 Arrival Date: 10/14/2018 Time: 08:31 Bed 19 Private MD: ED Physician Armando Hope HPI: 10/14 08:36 This 33 yrs old Male presents to ER via Unassigned with complaints of snw Shortness Of Breath. 08:36 The patient has shortness of breath at rest. Onset: The symptoms/episode began/occurred snw suddenly, just prior to arrival. Duration: The symptoms are continuous. The patient's shortness of breath has no apparent modifying factors. Associated signs and symptoms: Pertinent positives: nausea. Severity of symptoms: At their worst the symptoms were moderate severe. The patient has not experienced similar symptoms in the past. 3 wks ago for gout. Historical: - Allergies: 09:02 No Known Allergies; pc1 - Home Meds: 09:02 Allopurinol Oral [Active]; pc1 - PMHx: 09:02 Gout; Hypertension; pc1 - Immunization history:: Adult Immunizations unknown. - Social history:: Smoking status: Patient/guardian denies using tobacco. - Ebola Screening: : Patient negative for fever greater than or equal to 101.5 degrees Fahrenheit, and additional compatible Ebola Virus Disease symptoms Patient denies exposure to infectious person Patient denies travel to an Ebola-affected area in the 21 days before illness onset No symptoms or risks identified at this time. ROS: 08:35 Eyes: Negative for injury, pain, redness, and discharge, ENT: Negative for injury, snw pain, and discharge, Neck: Negative for injury, pain, and swelling, Cardiovascular: Negative for chest pain, palpitations, and edema. 08:35 Back: Negative for injury and pain, : Negative for injury, bleeding, discharge, and swelling, MS/Extremity: Negative for injury and deformity, Skin: Negative for injury, rash, and discoloration, Neuro: Negative for headache, weakness, numbness, tingling, and seizure. 08:35 Constitutional: Positive for malaise. 08:35 Respiratory: Positive for shortness of breath. 08:35 Abdomen/GI: Positive for nausea. 08:35 Psych: Positive for "panic attack I guess", pt has never experienced any such problem. Exam: 08:34 Head/Face: Normocephalic, atraumatic. Eyes: Pupils equal round and reactive to light, snw extra-ocular motions intact. Lids and lashes normal. Conjunctiva and sclera are non-icteric and not injected. Cornea within normal limits. Periorbital areas with no swelling, redness, or edema. ENT: Nares patent. No nasal discharge, no septal abnormalities noted. Tympanic membranes are normal and external auditory canals are clear. Oropharynx with no redness, swelling, or masses, exudates, or evidence of obstruction, uvula midline. Mucous membranes moist. Neck: Trachea midline, no thyromegaly or masses palpated, and no cervical lymphadenopathy. Supple, full range of motion without nuchal rigidity, or vertebral point tenderness. No Meningismus. Chest/axilla: Normal chest wall appearance and motion. Nontender with no deformity. No lesions are appreciated. Cardiovascular: Regular rate and rhythm with a normal S1 and S2. No gallops, murmurs, or rubs. Normal PMI, no JVD. No pulse deficits. Respiratory: Lungs have equal breath sounds bilaterally, clear to auscultation and percussion. No rales, rhonchi or wheezes noted. No increased work of breathing, no retractions or nasal flaring. Abdomen/GI: Soft, non-tender, with normal bowel sounds. No distension or tympany. No guarding or rebound. No evidence of tenderness throughout. Back: No spinal tenderness. No costovertebral tenderness. Full range of motion. Skin: Warm, dry with normal turgor. Normal color with no rashes, no lesions, and no evidence of cellulitis. MS/ Extremity: Pulses equal, no cyanosis. Neurovascular intact. Full, normal range of motion. Neuro: Awake and alert, GCS 15, oriented to person, place, time, and situation. Cranial nerves II-XII grossly intact. Motor strength 5/5 in all extremities. Sensory grossly intact. Cerebellar exam normal. Normal gait. 08:34 Constitutional: The patient appears alert, anxious, obese, uncomfortable. Vital Signs: 08:32 BP 141 / 99; Pulse 67; Resp 18; Temp 98.1(O); Pulse Ox 99% on R/A; Weight 113.4 kg; hj Height 5 ft. 8 in. (172.72 cm); 09:30 BP 138 / 87; Pulse 68; Resp 18; Pulse Ox 99% on R/A; hj 10:18 BP 135 / 85; Pulse 78; Resp 18; Pulse Ox 100% on R/A; hj 08:32 Body Mass Index 38.01 (113.40 kg, 172.72 cm) MDM: 08:32 Patient medically screened. [facility] 10:20 Data reviewed: vital signs, nurses notes. Data interpreted: Pulse oximetry: on room air snw is 100 %. Interpretation: normal. Counseling: I had a detailed discussion with the patient and/or guardian regarding: the historical points, exam findings, and any diagnostic results supporting the discharge/admit diagnosis, the presence of at least one elevated blood pressure reading (>120/80) during this emergency department visit, lab results, radiology results, the need for outpatient follow up, to return to the emergency department if symptoms worsen or persist or if there are any questions or concerns that arise at home. Special discussion: Based on the patient's history, exam, and Dx evaluation, there is no indication for emergent intervention or inpatient Tx. It is understood by the patient/guardian that if the Sx's persist or worsen they need to return immediately for re-evaluation. I have referred the patient to see his PCP for further evaluation of high blood pressure. Based on the history and exam findings, there is no indication for further emergent testing or inpatient evaluation. I discussed with the patient/guardian the need to see the meter maker for further evaluation of the symptoms. I discussed with the patient/guardian the need to see the primary care provider for further evaluation of the symptoms. 10/14 08:34 Order name: Basic Metabolic Panel; Complete Time: 10:18 10/14 08:34 Order name: CBC with Diff; Complete Time: 09:40 10/14 08:34 Order name: LFT's; Complete Time: 10:18 10/14 08:34 Order name: Magnesium; Complete Time: 10:18 10/14 08:34 Order name: NT PRO-BNP; Complete Time: 10:18 10/14 08:34 Order name: PT-INR; Complete Time: 09:47 10/14 08:34 Order name: Troponin (emerg Dept Use Only); Complete Time: 10:18 10/14 08:34 Order name: D-Dimer; Complete Time: 09:47 [place] 10/14 08:34 Order name: Urine Culture [facility] 10/14 08:34 Order name: UDS [facility] 10/14 08:34 Order name: Basic Metabolic Panel [facility] 10/14 08:34 Order name: CBC with Diff [facility] 10/14 08:34 Order name: LFT's [facility] 10/14 08:34 Order name: Magnesium [facility] 10/14 08:34 Order name: EKG; Complete Time: 08:35 [place] 10/14 08:34 Order name: Cardiac monitoring; Complete Time: 08:37 [facility] 10/14 08:34 Order name: EKG - Nurse/Tech; Complete Time: 09:09 [facility] 10/14 08:34 Order name: IV Saline Lock; Complete Time: 09:09 [facility] 10/14 08:34 Order name: Labs collected and sent; Complete Time: 09:09 [facility] 10/14 08:34 Order name: O2 Per Protocol; Complete Time: 08:38 [facility] 10/14 08:34 Order name: NT PRO-BNP [facility] 10/14 08:34 Order name: PT-INR [facility] 10/14 08:34 Order name: Troponin (emerg Dept Use Only) [facility] 10/14 08:34 Order name: XRAY Chest (1 view); Complete Time: 09:14 [facility] 10/14 09:35 Order name: Urine Dipstick--Ancillary (enter results); Complete Time: 09:47 10/14 08:34 Order name: O2 Sat Monitoring; Complete Time: 08:39 [place] 10/14 08:34 Order name: Urine Dipstick-Ancillary (obtain specimen); Complete Time: 10:01 [place] 10/14 08:34 Order name: Cardiac monitoring; Complete Time: 08:37 snw 10/14 08:34 Order name: EKG - Nurse/Tech; Complete Time: 09:08 snw 10/14 08:34 Order name: IV Saline Lock; Complete Time: 09:08 snw 10/14 08:34 Order name: Labs collected and sent; Complete Time: 09:09 snw 10/14 08:34 Order name: O2 Per Protocol; Complete Time: 08:37 snw 10/14 08:34 Order name: O2 Sat Monitoring; Complete Time: 08:37 snw Administered Medications: 08:36 Drug: Aspirin Chewable Tablet 324 mg Route: PO; hj 09:08 Follow up: Response: No adverse reaction hj 09:00 Drug: NS 0.9% 1000 ml Route: IV; Rate: 75 ml/hr; Site: right hand; hj 11:22 Follow up: IV Status: Order to discontinue infusion Disposition: 12:56 Co-signature as Attending Physician, Armando Hope MD I agree with the assessment and [place] plan of care. Disposition: 10/14/18 10:18 Discharged to Home. Impression: Shortness of breath. - Condition is Stable. - Discharge Instructions: Hypertension, Shortness of Breath. - Work release form, Medication Reconciliation Form, Thank You Letter, Antibiotic Education, Prescription Opioid Use form. - Follow up: Private Physician; When: 1 - 2 days; Reason: Recheck today's complaints, Continuance of care, Re-evaluation by your physician. Follow up: Emergency Department; When: As needed; Reason: Worsening of condition. Signatures: Dispatcher [employer] EDHI Armando Hope MD MD cha Therrien, Shelly, SCREENING TECHNICIAN-C SCREENING TECHNICIAN-Csnw Taryn Quintana, RN RN iw Julius Alvarez RN RN hj Cantu, Patrick pc1 Corrections: (The following items were deleted from the chart) 08:36 08:35 D-DIMER+COAG.LAB.BRZ ordered. [facility] EDHI 08:38 08:35 Chest Single View+RAD.RAD.BRZ ordered. [facility] EDHI 11:22 10:18 10/14/2018 10:18 Discharged to Home. Impression: Shortness of breath. Condition iw is Stable. Forms are Medication Reconciliation Form, Thank You Letter, Antibiotic Education, Prescription Opioid Use. Follow up: Private Physician; When: 1 - 2 days; Reason: Recheck today's complaints, Continuance of care, Re-evaluation by your physician. Follow up: Emergency Department; When: As needed; Reason: Worsening of condition. snw
[2018-10-14 11:28] VITALS: TEMP 98.1
[2018-10-14 11:30] VITALS: BP 135/85; O2SAT 100
[2018-10-14 14:35] LABS: Barbiturates NEGATIVE (NEGATIVE); Benzodiazepines NEGATIVE (NEGATIVE); Cocaine NEGATIVE (NEGATIVE); METHAMPHETAM NEGATIVE (NEGATIVE); Methadone NEGATIVE (NEGATIVE); Opiates NEGATIVE (NEGATIVE); Phencyclidine NEGATIVE (NEGATIVE); THC Cannibis NEGATIVE (NEGATIVE)
--- NOTE | 2018-10-14 17:29 | EKG ---
Test Date: 2018-10-14 Test Time: 08:53:02 Mammographer: SAVAGE MEASUREMENT RESULTS: Intervals: Rate: 75 CT: 140 QRSD: 94 QT: 374 QTc: 417 [place]: P: 35 CT: 140 QRS: 32 T: 49 INTERPRETIVE STATEMENTS: Normal sinus rhythm Normal ECG No previous ECG available for comparison Electronically Signed On 10-14-18 17:27:45 CDT by Eliezer Syed
== END 2018-10-14 11:22 | disposition home or self-care (01) ==
LOC: ER 08:29
DX: R06.02 Shortness of breath (principal); M10.9 Gout, unspecified
CPT/HCPCS: 36415; 71045; 80048; 80076; 80307; 81003; 83735; 83880; 84484; 85025; 85379; 85610; 87086; 87088; 93005; 96360; 96361; 99284; J7030

== ENCOUNTER 2018-11-10 13:10 | Emergency (ER) | payer BC, SELFPAY ==
--- NOTE | 2018-11-10 13:42 | EDPHYS ---
Physician Documentation [facility] Name: Leandra Staton Age: 33 yrs Sex: Male : 1985 Arrival Date: 11/10/2018 Time: 13:13 Bed 17 Private MD: None, None ED Physician Armando Hope HPI: 11/10 13:33 This 33 yrs old Male presents to ER via Ambulatory with complaints of Foot cp Pain. 13:33 The patient presents with pain, that is acute, swelling, tenderness. The complaints cp affect the right ankle, anterior aspect of right ankle and dorsum of right foot. 13:33 Context: reports history of gout. Onset: The symptoms/episode began/occurred 2 day(s) cp ago. Historical: - Allergies: 13:15 No Known Allergies; sv - PMHx: 13:15 Gout; Hypertension; sv ROS: 13:34 Eyes: Negative for injury, pain, redness, and discharge. cp 13:34 Constitutional: Negative for body aches, chills, fever, poor PO intake. 13:34 Cardiovascular: Negative for chest pain, palpitations. 13:34 Respiratory: Negative for cough, shortness of breath, wheezing. 13:34 Abdomen/GI: Negative for abdominal pain, nausea, vomiting, and diarrhea. 13:34 MS/extremity: Positive for pain, swelling, tenderness, of the right ankle and right foot, Negative for injury or acute deformity, decreased range of motion, paresthesias. 13:34 Skin: Negative for erythema. 13:34 All other systems are negative. Exam: 13:35 Head/Face: Normocephalic, atraumatic. cp 13:35 Constitutional: The patient appears in no acute distress, alert, awake, non-toxic, well developed, well nourished. 13:35 Musculoskeletal/extremity: Extremities: grossly normal except: noted in the right ankle and proximal right foot: pain, swelling, tenderness, There is no evidence of decreased ROM, deformity, Perfusion: the extremity is normally perfused throughout, Sensation intact. 13:35 Skin: cellulitis, is not appreciated, no rash present. Vital Signs: 13:15 BP 147 / 95; Pulse 87; Resp 18; Temp 98.7; Pulse Ox 99% ; Weight 113.4 kg; Height 5 ft. sv 8 in. (172.72 cm); Pain 3/10; 13:15 Body Mass Index 38.01 (113.40 kg, 172.72 cm) MDM: 13:28 Patient medically screened. cp 13:35 Differential diagnosis: closed fracture, contusion, cellulitis, gout flare. cp 13:40 Data reviewed: vital signs, nurses notes, and as a result, I will discharge patient. cp 13:40 Counseling: I had a detailed discussion with the patient and/or guardian regarding: the cp historical points, exam findings, and any diagnostic results supporting the discharge/admit diagnosis, to return to the emergency department if symptoms worsen or persist or if there are any questions or concerns that arise at home. Administered Medications: No medications were administered Disposition: 11/11 07:49 Co-signature as Attending Physician, Armando Hope MD I agree with the assessment and [facility] plan of care. Disposition: 11/10/18 13:41 Discharged to Home. Impression: Pain in right ankle and joints of right foot. - Condition is Stable. - Discharge Instructions: Foot Sprain, Gout, Ankle Pain. - Prescriptions for Colchicine- Probenecid 0.5-500 mg Oral Tablet - take 1 tablet by ORAL route every 1 hour up to 3 hours; 3 tablet. Tramadol 50 mg Oral Tablet - take 1 tablet by ORAL route every 8 hours as needed; 12 tablet. - Work release form, Medication Reconciliation Form, Thank You Letter, Antibiotic Education, Prescription Opioid Use form. - Follow up: Private Physician; When: 2 - 3 days; Reason: Recheck today's complaints. - Problem is an acute exacerbation. - Symptoms are unchanged. Signatures: Itzel Carrasco RN RN sv Anderson, Corey, MD MD cha Munoz, Edgar, [employer] SALES REPRESENTATIVE [employer] SALES REPRESENTATIVE em Armando Argueta PA PA cp Corrections: (The following items were deleted from the chart) 11/10 14:07 13:41 11/10/2018 13:41 Discharged to Home. Impression: Pain in right ankle and joints em of right foot. Condition is Stable. Prescriptions for Colchicine-Probenecid 0.5-500 mg Oral Tablet - take 1 tablet by ORAL route every 1 hour up to 3 hours; 3 tablet, Tramadol 50 mg Oral Tablet - take 1 tablet by ORAL route every 8 hours as needed; 12 tablet. and Forms are Medication Reconciliation Form, Thank You Letter, Antibiotic Education, Prescription Opioid Use. Follow up: Private Physician; When: 2 - 3 days; Reason: Recheck today's complaints. Problem is an acute exacerbation. Symptoms are unchanged. cp
--- NOTE | 2018-11-10 13:42 | ER ---
Nurse's Notes [facility] Name: Leandra Staton Age: 33 yrs Sex: Male : 1985 Arrival Date: 11/10/2018 Time: 13:13 Bed 17 Private MD: None, None Diagnosis: Pain in right ankle and joints of right foot Presentation: 11/10 13:14 Presenting complaint: Patient states: right foot pain since Sunday. Hx Gout. Transition sv of care: patient was not received from another setting of care. Onset of symptoms was November 08, 2018. Care prior to arrival: None. 13:14 Method Of Arrival: Ambulatory sv 13:14 Acuity: STEPHANIE 4 sv Historical: - Allergies: 13:15 No Known Allergies; sv - PMHx: 13:15 Gout; Hypertension; sv Screenin:50 Abuse screen: Denies threats or abuse. Nutritional screening: No deficits noted. em Tuberculosis screening: No symptoms or risk factors identified. Fall Risk None identified. Assessment: 13:50 General: Appears in no apparent distress. comfortable, Behavior is calm, cooperative, em Denies fever. Pain: Complains of pain in right ankle Pain currently is 3 out of 10 on a pain scale. Neuro: Level of Consciousness is awake, alert, obeys commands, Oriented to person, place, time, situation. Cardiovascular: Capillary refill < 3 seconds Patient's skin is warm and dry. Respiratory: Airway is patent Respiratory effort is even, unlabored, Respiratory pattern is regular, symmetrical. Derm: Skin is intact, is healthy with good turgor, Skin is pink, warm \T\ dry. Musculoskeletal: Capillary refill < 3 seconds, Range of motion: limited in right ankle Swelling absent. 14:02 Reassessment: I agree with previous assessment. hb Vital Signs: 13:15 BP 147 / 95; Pulse 87; Resp 18; Temp 98.7; Pulse Ox 99% ; Weight 113.4 kg; Height 5 ft. sv 8 in. (172.72 cm); Pain 3/10; 13:15 Body Mass Index 38.01 (113.40 kg, 172.72 cm) sv ED Course: 13:13 Patient arrived in ED. mr 13:14 None, None is Private Physician. mr 13:15 Triage completed. sv 13:16 Arm band placed on. sv 13:19 Mason Clemente LVN is Primary Nurse. em 13:23 Armando Argueta PA is PHCP. cp 13:23 Armando Hope MD is Attending Physician. cp 13:50 Patient has correct armband on for positive identification. Bed in low position. Call em light in reach. 14:05 No provider procedures requiring assistance completed. Patient did not have IV access em during this emergency room visit. Administered Medications: No medications were administered Outcome: 13:41 Discharge ordered by MD. cp 14:05 Discharged to home ambulatory. em 14:05 Condition: good 14:05 Discharge instructions given to patient, Instructed on discharge instructions, follow up and referral plans. medication usage, Demonstrated understanding of instructions, follow-up care, medications, Prescriptions given X 2. 14:07 Patient left the ED. em Signatures: Itzel Carrasco, RN RN Juanis Ba mr BrynMason, JUAN SHOVEL ENGINEER em Armando Argueta PA PA cp Baxter, Heather, RN RN hb
[2018-11-10 14:21] VITALS: BP 147/95; TEMP 98.7; O2SAT 99
== END 2018-11-10 14:07 | disposition home or self-care (01) ==
LOC: ER 13:10
DX: M79.671 Pain in right foot (principal); M25.571 Pain in right ankle and joints of right foot; M10.9 Gout, unspecified; I10 Essential (primary) hypertension
CPT/HCPCS: 99282

== ENCOUNTER 2019-01-01 19:13 | Emergency (ER) | payer BC, SELFPAY ==
[2019-01-01] MEDS ORDERED: DEXAMETHASONE 10 MG/ML VIAL ONE (20:00)
[2019-01-01] MEDS ORDERED: KETOROLAC 30 MG/ML INJ ONE (20:00)
[2019-01-01] MEDS ORDERED: COLCHICINE 0.6 MG TAB ONE (20:12)
--- NOTE | 2019-01-01 20:49 | ER ---
Nurse's Notes [facility] Name: Leandra Staton Age: 33 yrs Sex: Male : 1985 Arrival Date: 01/01/2019 Time: 19:16 Bed 27 Private MD: Diagnosis: Gout Presentation: 01/01 19:27 Presenting complaint: Patient states: Pain, swelling to right knee increasing since lp1 this morning; Hx of gout. Transition of care: patient was not received from another setting of care. Onset of symptoms was January 01, 2019. Risk Assessment: Do you want to hurt yourself or someone else? Patient reports no desire to harm self or others. Initial Sepsis Screen: Does the patient meet any 2 criteria? No. Patient's initial sepsis screen is negative. Does the patient have a suspected source of infection? No. Patient's initial sepsis screen is negative. Care prior to arrival: None. 19:27 Method Of Arrival: Wheelchair lp1 19:27 Acuity: STEPHANIE 4 lp1 Historical: - Allergies: 19:29 No Known Allergies; lp1 - Home Meds: 19:29 None [Active]; lp1 - PMHx: 19:29 Gout; Hypertension; lp1 - PSHx: 19:29 None; lp1 - Immunization history:: Adult Immunizations up to date. - Social history:: Smoking status: Patient uses tobacco products, denies chronic smoking, but will smoke occasionally. - Ebola Screening: : No symptoms or risks identified at this time. - Family history:: not pertinent. - Hospitalizations: : No recent hospitalization is reported. Screenin:29 Abuse screen: Denies threats or abuse. Denies injuries from another. Nutritional lp1 screening: No deficits noted. Tuberculosis screening: No symptoms or risk factors identified. 19:33 Fall Risk None identified. rv Assessment: 19:30 General: Appears in no apparent distress. comfortable, Behavior is calm, cooperative. rv Pain: Complains of pain in right leg. Neuro: Level of Consciousness is awake, alert, obeys commands, Oriented to person, place, time, situation. Cardiovascular: Patient's skin is warm and dry. Respiratory: Airway is patent. GI: No signs and/or symptoms were reported involving the gastrointestinal system. : No signs and/or symptoms were reported regarding the genitourinary system. EENT: No signs and/or symptoms were reported regarding the EENT system. Derm: Skin is intact. Musculoskeletal: Swelling present in right knee. Vital Signs: 19:28 BP 142 / 82; Pulse 93; Resp 18; Temp 98.8(O); Pulse Ox 95% on R/A; Weight 113.4 kg; lp1 Height 5 ft. 8 in. (172.72 cm); Pain 6/10; 21:12 BP 138 / 80; Pulse 87; Resp 18; Temp 98.4; Pulse Ox 99% ; rv 19:28 Body Mass Index 38.01 (113.40 kg, 172.72 cm) lp1 ED Course: 19:16 Patient arrived in ED. ds1 19:28 Triage completed. lp1 19:28 Akash Medina RN is Primary Nurse. rv 19:28 Arm band placed on right wrist. lp1 19:33 Patient has correct armband on for positive identification. Bed in low position. Call rv light in reach. Side rails up X 1. Adult w/ patient. Pulse ox on. NIBP on. 19:34 Edwardo Howell MD is Attending Physician. rn 20:02 Inserted saline lock: 22 gauge in right hand, using aseptic technique. rv 21:11 No provider procedures requiring assistance completed. IV discontinued, intact, rv bleeding controlled, No redness/swelling at site. Pressure dressing applied. Administered Medications: 20:00 Drug: Colcrys 1.2 mg Route: PO; rv 21:11 Follow up: Response: Marked relief of symptoms; Pain is decreased rv 20:07 Drug: TORadol 30 mg Route: IVP; Site: right hand; rv 21:11 Follow up: Response: Marked relief of symptoms; Pain is decreased rv 20:07 Drug: Decadron - Dexamethasone 10 mg Route: IVP; Site: right hand; rv 21:11 Follow up: Response: Marked relief of symptoms; Pain is decreased rv Outcome: 20:47 Discharge ordered by . rn 21:12 Discharged to home ambulatory, with cane rv 21:12 Condition: good 21:12 Discharge instructions given to patient, Instructed on discharge instructions, follow up and referral plans. medication usage, Demonstrated understanding of instructions, follow-up care, medications, Prescriptions given X 2. 21:12 Patient left the ED. rv Signatures: Lizzeth Mendoza ds1 Edwardo Howell MD MD rn Karo Auguste RN RN lp1 Akash Medina RN RN rv
--- NOTE | 2019-01-01 20:49 | EDPHYS ---
Physician Documentation [facility] Name: Leandra Staton Age: 33 yrs Sex: Male : 1985 Arrival Date: 01/01/2019 Time: 19:16 Bed 27 Private MD: ED Physician Edwardo Howell HPI: 01/01 20:07 This 33 yrs old Male presents to ER via Wheelchair with complaints of Leg rn Swelling. 20:07 This 33 yrs old Male presents to ER via Wheelchair with complaints of Leg rn Swelling, knee pain. 20:07 The patient presents with pain. The complaints affect the right knee. Onset: The rn symptoms/episode began/occurred this morning. Modifying factors: The symptoms are alleviated by remaining still, the symptoms are aggravated by movement, weight bearing, bending knee. Severity of symptoms: At their worst the symptoms were moderate, in the emergency department the symptoms are unchanged. The patient has experienced similar episodes in the past. 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 Historical: - Allergies: 19:29 No Known Allergies; lp1 - Home Meds: 19:29 None [Active]; lp1 - PMHx: 19:29 Gout; Hypertension; lp1 - PSHx: 19:29 None; lp1 - Immunization history:: Adult Immunizations up to date. - Social history:: Smoking status: Patient uses tobacco products, denies chronic smoking, but will smoke occasionally. - Ebola Screening: : No symptoms or risks identified at this time. - Family history:: not pertinent. - Hospitalizations: : No recent hospitalization is reported. ROS: 20:07 Constitutional: Negative for fever, chills, and weight loss, Cardiovascular: Negative rn for chest pain, palpitations, and edema, Respiratory: Negative for shortness of breath, cough, wheezing, and pleuritic chest pain, Abdomen/GI: Negative for abdominal pain, nausea, vomiting, diarrhea, and constipation, Back: Negative for injury and pain, MS/Extremity: + right knee pain and swelling. Skin: Negative for injury, rash, and discoloration, Neuro: Negative for headache, weakness, numbness, tingling, and seizure. Exam: 20:07 Constitutional: This is a well developed, well nourished patient who is awake, alert, rn and in no acute distress. Skin: Warm, dry with normal turgor. Normal color with no rashes, no lesions, and no evidence of cellulitis. MS/ Extremity: Pulses equal, no cyanosis. Neurovascular intact. Painful ROM right knee with suprapatellar effusion. No erythema or overlying skin changes of knee. No distal swelling. Neuro: Awake and alert, GCS 15, oriented to person, place, time, and situation. Cranial nerves II-XII grossly intact. Motor strength 5/5 in all extremities. Sensory grossly intact. Vital Signs: 19:28 BP 142 / 82; Pulse 93; Resp 18; Temp 98.8(O); Pulse Ox 95% on R/A; Weight 113.4 kg; lp1 Height 5 ft. 8 in. (172.72 cm); Pain 6/10; 21:12 BP 138 / 80; Pulse 87; Resp 18; Temp 98.4; Pulse Ox 99% ; rv 19:28 Body Mass Index 38.01 (113.40 kg, 172.72 cm) lp1 MDM: 19:34 Patient medically screened. rn 20:47 Differential diagnosis: gout. Data reviewed: vital signs, nurses notes, and as a rn result, I will discharge patient. Counseling: I had a detailed discussion with the patient and/or guardian regarding: the historical points, exam findings, and any diagnostic results supporting the discharge/admit diagnosis, the need for outpatient follow up, to return to the emergency department if symptoms worsen or persist or if there are any questions or concerns that arise at home. Response to treatment: the patient's symptoms have mildly improved after treatment, and as a result, I will discharge patient. Special discussion: I discussed with the patient/guardian in detail that at this point there is no indication for admission to the hospital. It is understood, however, that if the symptoms persist or worsen the patient needs to return immediately for re-evaluation. 01/01 19:39 Order name: IV Start; Complete Time: 20:08 rn Administered Medications: 20:00 Drug: Colcrys 1.2 mg Route: PO; rv 21:11 Follow up: Response: Marked relief of symptoms; Pain is decreased rv 20:07 Drug: TORadol 30 mg Route: IVP; Site: right hand; rv 21:11 Follow up: Response: Marked relief of symptoms; Pain is decreased rv 20:07 Drug: Decadron - Dexamethasone 10 mg Route: IVP; Site: right hand; rv 21:11 Follow up: Response: Marked relief of symptoms; Pain is decreased rv Disposition: 01/01/19 20:47 Discharged to Home. Impression: Gout. - Condition is Stable. - Discharge Instructions: Gout. - Prescriptions for Tylenol- Codeine #3 300-30 mg Oral Tablet - take 1 tablet by ORAL route every 6 hours As needed; 15 tablet. Diclofenac Sodium 75 mg Oral Tablet, Delayed Release (E.C.) - take 1 tablet by ORAL route 2 times per day; 15 tablet. - Medication Reconciliation Form, Thank You Letter, Antibiotic Education, Prescription Opioid Use form. - Follow up: Private Physician; When: As needed; Reason: Recheck today's complaints, Re-evaluation by your physician. - Problem is an acute exacerbation. - Symptoms have improved. Signatures: Edwardo Howell MD MD rn Karo Auguste RN RN lp1 Akash Medina RN RN rv Corrections: (The following items were deleted from the chart) 21:12 20:47 01/01/2019 20:47 Discharged to Home. Impression: Gout. Condition is Stable. Forms rv are Medication Reconciliation Form, Thank You Letter, Antibiotic Education, Prescription Opioid Use. Follow up: Private Physician; When: As needed; Reason: Recheck today's complaints, Re-evaluation by your physician. Problem is an acute exacerbation. Symptoms have improved. rn
[2019-01-01 22:02] VITALS: BP 138/80; TEMP 98.4; O2SAT 99
== END 2019-01-01 21:12 | disposition home or self-care (01) ==
LOC: ER 19:13
DX: M10.9 Gout, unspecified (principal); I10 Essential (primary) hypertension; Z72.0 Tobacco use
CPT/HCPCS: 96374; 96375; 99284; J1100

== ENCOUNTER 2019-03-04 11:18 | Emergency (ER) | payer SELFPAY ==
--- NOTE | 2019-03-04 11:50 | RAD REPORT ---
EXAM DESCRIPTION: RAD - Ankle Left 3 View - 03/04/2019 11:44 am CLINICAL HISTORY: PAIN COMPARISON: No comparisons FINDINGS: No acute fracture seen. No dislocation evident. Small calcaneal spurs are present.
--- NOTE | 2019-03-04 12:12 | ER ---
Nurse's Notes [facility] Name: Leandra Staton Age: 33 yrs Sex: Male : 1985 Arrival Date: 03/04/2019 Time: 11:21 Bed 12 Private MD: None, None Diagnosis: Sprain of ankle-left Presentation: 03/04 11:22 Presenting complaint: Patient states: I twisted my left ankle yesterday and its a la1 little swollen, I cant go back to work until I get this piece of paper filled out. Denies pain in foot, pt ambulatory with slight limp. Transition of care: patient was not received from another setting of care. Onset of symptoms was March 04, 2019. Risk Assessment: Do you want to hurt yourself or someone else? Patient reports no desire to harm self or others. Initial Sepsis Screen: Does the patient meet any 2 criteria? No. Patient's initial sepsis screen is negative. Does the patient have a suspected source of infection? No. Patient's initial sepsis screen is negative. Care prior to arrival: None. 11:22 Method Of Arrival: Ambulatory la1 11:22 Acuity: STEPHANIE 4 la1 Historical: - Allergies: 11:24 No Known Allergies; la1 - PMHx: 11:24 Gout; Hypertension; la1 - Immunization history:: Adult Immunizations up to date. - Social history:: Smoking status: Patient uses tobacco products, denies chronic smoking, but will smoke occasionally. - Ebola Screening: : No symptoms or risks identified at this time. Screenin:25 Abuse screen: Denies threats or abuse. Nutritional screening: No deficits noted. la1 Tuberculosis screening: No symptoms or risk factors identified. Fall Risk None identified. Assessment: 11:24 General: Appears in no apparent distress. Behavior is calm, cooperative. Pain: la1 Complains of pain in left lateral malleolus. Neuro: Level of Consciousness is awake, alert, obeys commands, Oriented to person, place, time, situation, Gait is steady. Musculoskeletal: Circulation, motion, and sensation intact. Capillary refill < 3 seconds, is brisk, in bilateral toes. Range of motion: limited in left ankle. 11:38 Reassessment: XRAY being obtained in exam room at this time. Vital Signs: 11:24 BP 144 / 78; Pulse 72; Resp 16; Temp 97.5; Pulse Ox 98% on R/A; Weight 108.86 kg; la1 Height 5 ft. 8 in. (172.72 cm); 11:24 Body Mass Index 36.49 (108.86 kg, 172.72 cm) la1 ED Course: 11:21 Patient arrived in ED. dl4 11:21 None, None is Private Physician. dl4 11:23 Triage completed. la1 11:24 Arm band placed on right wrist. la1 11:25 Call light in reach. la1 11:25 No provider procedures requiring assistance completed. Patient did not have IV access la1 during this emergency room visit. 11:28 Armando Argueta PA is PHCP. cp 11:28 Edwardo Howell MD is Attending Physician. cp 11:36 Gwen Dewitt, KING is Primary Nurse. ss 11:45 X-ray completed. Portable x-ray completed in exam room. Patient tolerated procedure jb2 well. 11:50 Ankle Left 3 View XRAY In Process Unspecified. EDMS 12:02 Air stirrup applied to left ankle. ss Administered Medications: 11:37 Not Given (Patient reportedly self administered Aleve 2 hours ago. Armando Argueta ss notified): Ibuprofen 800 mg PO once Outcome: 12:10 Discharge ordered by MD. cp 12:16 Discharged to home ambulatory. la1 12:16 Condition: stable 12:16 Discharge instructions given to patient, Instructed on discharge instructions, follow up and referral plans. Demonstrated understanding of instructions, follow-up care, medications, Prescriptions given X 1. 12:16 Patient left the ED. la1 Signatures: Dispatcher [employer] EDTX Doe Bonilla jb2 Gwen Dewitt, RN RN ss Chacorta Cannon RN RN la1 Armando Argueta PA PA cp Luna, David dl4
--- NOTE | 2019-03-04 12:14 | EDPHYS ---
Physician Documentation [facility] Name: Leandra Staton Age: 33 yrs Sex: Male : 1985 Arrival Date: 03/04/2019 Time: 11:21 Bed 12 Private MD: None, None ED Physician Edwardo Howell HPI: 03/04 11:38 This 33 yrs old Male presents to ER via Ambulatory with complaints of Foot cp Injury. 11:38 The patient presents with an injury, pain, that is acute. The complaints affect the cp left ankle. Context: The problem was sustained at work, resulted from twisting of the extremity, the patient can fully bear weight, the patient is able to ambulate. Onset: The symptoms/episode began/occurred yesterday. Historical: - Allergies: 11:24 No Known Allergies; la1 - PMHx: 11:24 Gout; Hypertension; la1 - Immunization history:: Adult Immunizations up to date. - Social history:: Smoking status: Patient uses tobacco products, denies chronic smoking, but will smoke occasionally. - Ebola Screening: : No symptoms or risks identified at this time. ROS: 11:45 Constitutional: Negative for body aches, chills, fever, poor PO intake. cp 11:45 Eyes: Negative for injury, pain, redness, and discharge. cp 11:45 ENT: Negative for ear pain, sore throat, difficulty swallowing, difficulty handling secretions. 11:45 Respiratory: Negative for cough, shortness of breath, wheezing. 11:45 MS/extremity: Positive for pain, swelling, tenderness, of the left ankle, Negative for decreased range of motion, deformity. 11:45 All other systems are negative. Exam: 11:50 Constitutional: The patient appears in no acute distress, alert, awake, non-toxic, well cp developed, well nourished. 11:50 Head/Face: Normocephalic, atraumatic. cp 11:50 Musculoskeletal/extremity: Extremities: grossly normal except: noted in the left ankle: pain, swelling, tenderness, There is no evidence of decreased ROM, deformity, ROM: limited passive range of motion due to pain, in the left ankle, Perfusion: the extremity is normally perfused throughout, Sensation intact. Weight bearing: able to fully bear weight, no pain noted at proximal left fibula or base of left fifth metatarsal, Achilles tendon palpated and intact. Vital Signs: 11:24 BP 144 / 78; Pulse 72; Resp 16; Temp 97.5; Pulse Ox 98% on R/A; Weight 108.86 kg; la1 Height 5 ft. 8 in. (172.72 cm); 11:24 Body Mass Index 36.49 (108.86 kg, 172.72 cm) la1 MDM: 11:32 Patient medically screened. cp 12:00 Differential diagnosis: dislocation, closed fracture, sprain. cp 12:05 Data reviewed: vital signs, nurses notes, radiologic studies, plain films, and as a cp result, I will discharge patient. 03/04 11:25 Order name: Ankle Left 3 View XRAY; Complete Time: 12:11 la1 03/04 12:11 Interpretation: Report reviewed. cp 03/04 11:56 Order name: Aircast Ankle Splint; Complete Time: 11:58 cp Administered Medications: 11:37 Not Given (Patient reportedly self administered Aleve 2 hours ago. Armando Argueta ss notified): Ibuprofen 800 mg PO once Disposition: 12:24 Co-signature as Attending Physician, Edwardo Howell MD. rn Disposition: 03/04/19 12:10 Discharged to Home. Impression: Sprain of ankle - left. - Condition is Stable. - Discharge Instructions: Ankle Sprain. - Prescriptions for Ibuprofen 800 mg Oral Tablet - take 1 tablet by ORAL route every 12 hours As needed take with food; 30 tablet. - Medication Reconciliation Form, Thank You Letter, Antibiotic Education, Prescription Opioid Use form. - Follow up: Private Physician; When: 1 week; Reason: Recheck today's complaints. - Problem is new. - Symptoms have improved. Signatures: Dispatcher [employer] EDMS Edwardo Howell MD MD rn Attema, Lee, RN RN la1 Armando Argueta PA PA cp Smirch, Shelby RN ss Corrections: (The following items were deleted from the chart) 12:16 12:10 03/04/2019 12:10 Discharged to Home. Impression: Sprain of ankle - left. la1 Condition is Stable. Forms are Medication Reconciliation Form, Thank You Letter, Antibiotic Education, Prescription Opioid Use. Follow up: Private Physician; When: 1 week; Reason: Recheck today's complaints. Problem is new. Symptoms have improved. cp
[2019-03-04 12:23] VITALS: BP 144/78; TEMP 97.5; O2SAT 98
== END 2019-03-04 12:16 | disposition home or self-care (01) ==
LOC: ER 11:18
DX: S93.402A Sprain of unspecified ligament of left ankle, initial encounter (principal); X50.1XXA Overexertion from prolonged static or awkward postures, initial encounter; M10.9 Gout, unspecified; I10 Essential (primary) hypertension; Z72.0 Tobacco use
CPT/HCPCS: 99283

== ENCOUNTER 2019-03-09 18:05 | Emergency (ER) | payer SELFPAY ==
--- NOTE | 2019-03-09 18:25 | EDPHYS ---
Physician Documentation [facility] Name: Leandra Staton Age: 33 yrs Sex: Male : 1985 Arrival Date: 03/09/2019 Time: 18:07 Bed 26 Private MD: ED Physician Hill Grey HPI: 03/09 18:21 This 33 yrs old Male presents to ER via Ambulatory with complaints of work cp note. 18:21 Patient presents to ED requesting form be completed to return to work. cp 18:21 Patient was seen in [facility] ED for injury to left ankle. Xrays were taken and negative for cp fracture. Patient reports minimal pain and is requesting note to return to full duty at work. Historical: - Allergies: 18:13 No Known Allergies; tw2 - Home Meds: 18:13 None [Active]; tw2 - PMHx: 18:13 Gout; Hypertension; tw2 - PSHx: 18:13 None; tw2 - Immunization history:: Adult Immunizations. - Social history:: Smoking status: . - Ebola Screening: : Patient denies travel to an Ebola-affected area in the 21 days before illness onset. ROS: 18:22 Constitutional: Negative for body aches, chills, fever. cp 18:22 MS/extremity: Negative for decreased range of motion, pain, swelling, tenderness, left ankle. 18:22 Neuro: Negative for headache, numbness, tingling, weakness. 18:22 All other systems are negative. Exam: 18:23 Constitutional: The patient appears in no acute distress, alert, awake, non-toxic, well cp developed, well nourished. 18:23 Head/Face: Normocephalic, atraumatic. cp 18:23 Musculoskeletal/extremity: Joints: the left ankle displays minimal swelling, no erythema, no pain with passive ROM, Weight bearing: able to fully bear weight, without difficulty, DVT Exam: No signs of deep vein thrombosis. Achilles tendon palpated and intact w/o tenderness. 18:23 Skin: cellulitis, is not appreciated, no rash present. Vital Signs: 18:12 BP 138 / 78; Pulse 61; Resp 17; Temp 98.2(O); Pulse Ox 99% on R/A; Pain 1/10; tw2 18:13 Weight 108.86 kg (R); Height 5 ft. 8 in. (172.72 cm); tw2 18:13 Body Mass Index 36.49 (108.86 kg, 172.72 cm) tw2 MDM: 18:20 Patient medically screened. cp 18:24 Differential diagnosis: fracture, sprain, gout, cellulitis. cp 18:24 Data reviewed: vital signs, nurses notes, and as a result, I will discharge patient. ED cp course: VSS. Paperwork completed with return to full duty. Administered Medications: No medications were administered Disposition: 18:45 Chart complete. cp Disposition: 03/09/19 18:24 Discharged to Home. Impression: Encounter for other administrative examinations - work release. - Condition is Stable. - Medication Reconciliation Form, Thank You Letter, Antibiotic Education, Prescription Opioid Use form. - Follow up: Private Physician; When: As needed; Reason: Worsening of condition. - Problem is new. - Symptoms have improved. Addendum: 03/11/2019 15:38 Co-signature as Attending Physician, Hill Grey MD. g s Signatures: Armando Argueta PA PA cp Ana Emerson, RN RN tw2 Hill Grey MD MD Akash Medina, RN RN rv Corrections: (The following items were deleted from the chart) 03/09 18:38 18:24 03/09/2019 18:24 Discharged to Home. Impression: Encounter for other administrative examinations - work release. Condition is Stable. Forms are Medication Reconciliation Form, Thank You Letter, Antibiotic Education, Prescription Opioid Use. Follow up: Private Physician; When: As needed; Reason: Worsening of condition. Problem is new. Symptoms have improved. cp 03/10 16:13 16:11 All other systems are negative, cp cp
--- NOTE | 2019-03-09 18:25 | ER ---
Nurse's Notes [facility] Name: Leandra Staton Age: 33 yrs Sex: Male : 1985 Arrival Date: 03/09/2019 Time: 18:07 Bed 26 Private MD: Diagnosis: Encounter for other administrative examinations-work release Presentation: 03/09 18:11 Presenting complaint: Patient states: i sprained my left ankle Sunday, i came here tw2 Sunday, i got treated, and i can walk now, when i went to my job they want a release for me to go back to work. Transition of care: patient was not received from another setting of care. Onset of symptoms was March 09, 2019. Risk Assessment: Do you want to hurt yourself or someone else? Patient reports no desire to harm self or others. Initial Sepsis Screen: Does the patient meet any 2 criteria? No. Patient's initial sepsis screen is negative. Does the patient have a suspected source of infection? No. Patient's initial sepsis screen is negative. Care prior to arrival: None. 18:11 Method Of Arrival: Ambulatory tw2 18:11 Acuity: STEPHANIE 4 tw2 Triage Assessment: 18:13 General: Appears in no apparent distress. obese, well groomed, Behavior is calm, tw2 cooperative, appropriate for age. Pain: Denies pain. Historical: - Allergies: 18:13 No Known Allergies; tw2 - Home Meds: 18:13 None [Active]; tw2 - PMHx: 18:13 Gout; Hypertension; tw2 - PSHx: 18:13 None; tw2 - Immunization history:: Adult Immunizations. - Social history:: Smoking status: . - Ebola Screening: : Patient denies travel to an Ebola-affected area in the 21 days before illness onset. Screenin:34 Abuse screen: Denies threats or abuse. Denies injuries from another. Nutritional rv screening: No deficits noted. Tuberculosis screening: No symptoms or risk factors identified. Fall Risk None identified. Assessment: 18:31 General: Appears in no apparent distress. comfortable, Behavior is calm, cooperative. rv Pain: Complains of pain in left medial ankle. Neuro: Level of Consciousness is awake, alert, obeys commands, Oriented to person, place, time, situation. Cardiovascular: Patient's skin is warm and dry. Respiratory: Airway is patent. GI: No signs and/or symptoms were reported involving the gastrointestinal system. : No signs and/or symptoms were reported regarding the genitourinary system. EENT: No signs and/or symptoms were reported regarding the EENT system. Derm: Skin is intact. Musculoskeletal: Reports pain in anterior aspect of left ankle. Vital Signs: 18:12 BP 138 / 78; Pulse 61; Resp 17; Temp 98.2(O); Pulse Ox 99% on R/A; Pain 1/10; tw2 18:13 Weight 108.86 kg (R); Height 5 ft. 8 in. (172.72 cm); tw2 18:13 Body Mass Index 36.49 (108.86 kg, 172.72 cm) tw2 ED Course: 18:07 Patient arrived in ED. as 18:12 Triage completed. tw2 18:12 Arm band placed on. tw2 18:17 Armando Argueta PA is PHCP. cp 18:17 Hill Grey MD is Attending Physician. cp 18:24 Mason Clemente LVN is Primary Nurse. em 18:36 Patient has correct armband on for positive identification. Bed in low position. Call rv light in reach. Side rails up X 1. Pulse ox on. NIBP on. 18:36 No provider procedures requiring assistance completed. Patient did not have IV access rv during this emergency room visit. Administered Medications: No medications were administered Outcome: 18:24 Discharge ordered by . cp 18:36 Discharged to home ambulatory. rv 18:36 Condition: good 18:36 Discharge instructions given to patient, Instructed on discharge instructions, follow up and referral plans. Demonstrated understanding of instructions, follow-up care. 18:38 Patient left the ED. rv Signatures: Mason Clemente LVN THIRD LOADER Margarette Rodríguez as Armando Argueta PA PA cp Ana Emerson RN RN tw2 Akash Medina RN RN rv
[2019-03-09 19:35] VITALS: BP 138/78; TEMP 98.2; O2SAT 99
== END 2019-03-09 18:38 | disposition home or self-care (01) ==
LOC: ER 18:05
DX: Z02.89 Encounter for other administrative examinations (principal)

== ENCOUNTER 2020-03-26 12:38 | Emergency (ER) | payer SELFPAY ==
--- NOTE | 2020-03-26 15:17 | RAD REPORT ---
EXAM DESCRIPTION: RAD - Knee Right 3 View - 03/26/2020 3:05 pm CLINICAL HISTORY: Right knee pain FINDINGS: No fracture or dislocation is seen. Soft tissue swelling
--- NOTE | 2020-03-26 16:13 | EDPHYS ---
Physician Documentation [facility] Name: Laendra Staton Age: 34 yrs Sex: Male : 1985 Arrival Date: 03/26/2020 Time: 12:40 Bed 8 Private MD: RC Physician Armando Hope HPI: 03/26 16:03 This 34 yrs old Male presents to ER via Ambulatory with complaints of Knee kenya Pain, Knee Swelling. 16:03 The patient presents with decreased range of motion, pain, that is acute. The kenya complaints affect the left knee. Context: resulted from an unknown cause, the patient can fully bear weight. Onset: The symptoms/episode began/occurred 5 day(s) ago. Modifying factors: The symptoms are alleviated by elevating leg, remaining still, the symptoms are aggravated by movement. Associated signs and symptoms: The patient has no apparent associated signs or symptoms. Treatment prior to arrival includes: isi wrap, icing the affected extremity, over the counter medications, NSAIDS. Severity of symptoms: At their worst the symptoms were mild, in the emergency department the symptoms are unchanged. The patient has not experienced similar symptoms in the past. Historical: - Allergies: 13:00 No Known Allergies; sv - PMHx: 13:00 Gout; Hypertension; sv - PSHx: 13:00 None; sv - Immunization history:: Adult Immunizations. - Social history:: Smoking status: Patient denies any tobacco usage or history of. - Family history:: not pertinent. ROS: 16:03 Constitutional: Negative for fever, chills, and weight loss, Eyes: Negative for injury, kenya pain, redness, and discharge, ENT: Negative for injury, pain, and discharge, Neck: Negative for injury, pain, and swelling, Cardiovascular: Negative for chest pain, palpitations, and edema, Respiratory: Negative for shortness of breath, cough, wheezing, and pleuritic chest pain, Abdomen/GI: Negative for abdominal pain, nausea, vomiting, diarrhea, and constipation, Back: Negative for injury and pain, : Negative for injury, bleeding, discharge, and swelling, Skin: Negative for injury, rash, and discoloration, Neuro: Negative for headache, weakness, numbness, tingling, and seizure, Psych: Negative for depression, anxiety, suicide ideation, homicidal ideation, and hallucinations, Allergy/Immunology: Negative for hives, rash, and allergies, Endocrine: Negative for neck swelling, polydipsia, polyuria, polyphagia, and marked weight changes, Hematologic/Lymphatic: Negative for swollen nodes, abnormal bleeding, and unusual bruising. 16:03 MS/extremity: Positive for decreased range of motion, pain, swelling, tenderness, of the right knee. Exam: 16:03 Constitutional: This is a well developed, well nourished patient who is awake, alert, kenya and in no acute distress. Head/Face: Normocephalic, atraumatic. Eyes: Pupils equal round and reactive to light, extra-ocular motions intact. Lids and lashes normal. Conjunctiva and sclera are non-icteric and not injected. Cornea within normal limits. Periorbital areas with no swelling, redness, or edema. ENT: Nares patent. No nasal discharge, no septal abnormalities noted. Tympanic membranes are normal and external auditory canals are clear. Oropharynx with no redness, swelling, or masses, exudates, or evidence of obstruction, uvula midline. Mucous membranes moist. Neck: Trachea midline, no thyromegaly or masses palpated, and no cervical lymphadenopathy. Supple, full range of motion without nuchal rigidity, or vertebral point tenderness. No Meningismus. Chest/axilla: Normal chest wall appearance and motion. Nontender with no deformity. No lesions are appreciated. Cardiovascular: Regular rate and rhythm with a normal S1 and S2. No gallops, murmurs, or rubs. Normal PMI, no JVD. No pulse deficits. Respiratory: Lungs have equal breath sounds bilaterally, clear to auscultation and percussion. No rales, rhonchi or wheezes noted. No increased work of breathing, no retractions or nasal flaring. Abdomen/GI: Soft, non-tender, with normal bowel sounds. No distension or tympany. No guarding or rebound. No evidence of tenderness throughout. Back: No spinal tenderness. No costovertebral tenderness. Full range of motion. Male : Normal genitalia with no discharge or lesions. Skin: Warm, dry with normal turgor. Normal color with no rashes, no lesions, and no evidence of cellulitis. Neuro: Awake and alert, GCS 15, oriented to person, place, time, and situation. Cranial nerves II-XII grossly intact. Motor strength 5/5 in all extremities. Sensory grossly intact. Cerebellar exam normal. Normal gait. Psych: Awake, alert, with orientation to person, place and time. Behavior, mood, and affect are within normal limits. 16:03 Musculoskeletal/extremity: Extremities: noted in the right knee: decreased ROM, pain, ROM: full active range of motion, full passive range of motion, Circulation is intact in all extremities. Sensation intact. Compartment Syndrome exam of affected extremity: is normal. Weight bearing: able to fully bear weight, Tendon exam: specific tendon testing normal through active and passive range of motion DVT Exam: negative Homans' sign noted on exam, no appreciated bluish discoloration, no erythema, no increased warmth, pain, swelling, tenderness, Calves: are non-tender, have equal circumference, neg Denzel, minimal prepatellar effusion, not red and hot. Vital Signs: 13:01 BP 119 / 80; Pulse 82; Resp 16; Temp 99.4; Pulse Ox 100% ; Weight 113.4 kg; Height 5 sv ft. 8 in. (172.72 cm); 13:56 BP 131 / 82; Pulse 91; Resp 95; Pain 3/10; em1 14:29 BP 119 / 73; Pulse 86; Resp 17; Pulse Ox 95% on R/A; tw2 15:30 BP 125 / 64; Pulse 79; Resp 17; Pulse Ox 97% on R/A; tw2 16:22 BP 122 / 58; Pulse 84; Resp 17; Pulse Ox 99% on R/A; tw2 13:01 Body Mass Index 38.01 (113.40 kg, 172.72 cm) sv MDM: 13:52 Patient medically screened. kenya 16:13 Differential diagnosis: dislocation, closed fracture, contusion, tendonitis. Data kenya reviewed: vital signs, nurses notes, radiologic studies, plain films. Data interpreted: phototypesetting equipment monitor: rate is 86 beats/min, rhythm is regular, Pulse oximetry: on room air is 95 %. Test interpretation: by ED physician or midlevel provider: plain radiologic studies. Counseling: I had a detailed discussion with the patient and/or guardian regarding: the historical points, exam findings, and any diagnostic results supporting the discharge/admit diagnosis, radiology results, the need for outpatient follow up, for definitive care, a orthopedic surgeon. Medication response: ibuprofen administration has improved the patient's pain. ED course: rest, ice, elevate, compression. 03/26 14:48 Order name: Knee Right 3 View XRAY [facility] 03/26 14:48 Order name: Knee Immobilizer; Complete Time: 14:59 [facility] 03/26 14:48 Order name: Crutches; Complete Time: 14:59 [facility] 03/26 14:48 Order name: Ice pack; Complete Time: 14:59 [facility] Administered Medications: 16:06 Drug: Motrin 800 mg Route: PO; jl7 16:15 Follow up: Response: No adverse reaction tw2 Disposition: 03/26/20 16:12 Discharged to Home. Impression: Pain in right knee, Effusion, right knee. - Condition is Stable. - Discharge Instructions: Knee Effusion, Musculoskeletal Pain, Knee Pain, Cryotherapy, Xrvt-[id number], Knee Effusion, [id number]-[id number], Arthritis, [id number], Cryotherapy. - Prescriptions for Tylenol- Codeine #3 300-30 mg Oral Tablet - take 2 tablets by ORAL route every 6 hours As needed; 24 tablet. Diclofenac Sodium 75 mg Oral Tablet, Delayed Release (E.C.) - take 1 tablet by ORAL route 2 times per day; 20 tablet. - Medication Reconciliation Form, Thank You Letter, Antibiotic Education, Prescription Opioid Use, Work release form form. - Follow up: Private Physician; When: 2 - 3 days; Reason: Recheck today's complaints, Continuance of care, Re-evaluation by your physician. Follow up: Albert Casillas MD; When: 2 - 3 days; Reason: Recheck today's complaints, Re-evaluation by your physician. - Problem is new. - Symptoms have improved. Signatures: Dispatcher [employer] Itzel Ward, RN Armando Morales MD MD cha Wise, Tara RN RN tw2 Jono Simpson RN RN jl7 Corrections: (The following items were deleted from the chart) 16:23 16:12 03/26/2020 16:12 Discharged to Home. Impression: Pain in right knee; Effusion, tw2 right knee. Condition is Stable. Forms are Work release form, Medication Reconciliation Form, Thank You Letter, Antibiotic Education, Prescription Opioid Use. Follow up: Private Physician; When: 2 - 3 days; Reason: Recheck today's complaints, Continuance of care, Re-evaluation by your physician. Follow up: Albert Casillas; When: 2 - 3 days; Reason: Recheck today's complaints, Re-evaluation by your physician. Problem is new. Symptoms have improved. kenya
--- NOTE | 2020-03-26 16:13 | ER ---
Nurse's Notes [facility] Name: Leandra Staton Age: 34 yrs Sex: Male : 1985 Arrival Date: 03/26/2020 Time: 12:40 Bed 8 Private MD: Diagnosis: Pain in right knee;Effusion, right knee Presentation: 03/26 12:59 Chief complaint: Patient states: right knee pain/swelling started Sunday. Denies sv injury. Coronavirus screen: Client denies travel out of the [place] in the last 14 days. At this time, the client does not indicate any symptoms associated with coronavirus-19. Ebola Screen: No symptoms or risks identified at this time. Risk Assessment: Do you want to hurt yourself or someone else? Patient reports no desire to harm self or others. Onset of symptoms was March 23, 2020. 12:59 Method Of Arrival: Ambulatory sv 12:59 Acuity: STEPHANIE 4 sv 13:01 Initial Sepsis Screen: Does the patient meet any 2 criteria? No. Patient's initial sv sepsis screen is negative. Does the patient have a suspected source of infection? No. Patient's initial sepsis screen is negative. Triage Assessment: 12:59 General: Appears in no apparent distress. uncomfortable, Behavior is calm, cooperative, sv appropriate for age. Pain: Complains of pain in right knee. Neuro: Level of Consciousness is awake, alert, obeys commands, Oriented to person, place, time, situation, Gait is steady. Respiratory: Respiratory effort is even, unlabored. Historical: - Allergies: 13:00 No Known Allergies; sv - PMHx: 13:00 Gout; Hypertension; sv - PSHx: 13:00 None; sv - Immunization history:: Adult Immunizations. - Social history:: Smoking status: Patient denies any tobacco usage or history of. - Family history:: not pertinent. Screenin:53 Abuse screen: Denies threats or abuse. Nutritional screening: No deficits noted. tw2 Tuberculosis screening: No symptoms or risk factors identified. Fall Risk None identified. Assessment: 13:45 General: Appears in no apparent distress. obese, well groomed, Behavior is calm, tw2 cooperative, appropriate for age. Pain: Complains of pain in right knee. Neuro: Level of Consciousness is awake, alert, obeys commands, Oriented to person, place, time, situation. Cardiovascular: Patient's skin is warm and dry. Respiratory: Airway is patent Respiratory effort is even, unlabored, Respiratory pattern is regular, symmetrical. GI: No signs and/or symptoms were reported involving the gastrointestinal system. Abdomen is round non-distended. : No signs and/or symptoms were reported regarding the genitourinary system. EENT: No signs and/or symptoms were reported regarding the EENT system. Derm: No signs and/or symptoms reported regarding the dermatologic system. Musculoskeletal: Circulation, motion, and sensation intact. pt presents with OTC knee brace on right knee. 14:30 Reassessment: Patient appears in no apparent distress at this time. No changes from tw2 previously documented assessment. Patient and/or family updated on plan of care and expected duration. Pain level reassessed. Patient is alert, oriented x 3, equal unlabored respirations, skin warm/dry/pink. 14:42 Reassessment: provider at bedside at this time. tw2 16:16 Reassessment: pt refused KNEE immobilizer at this time. tw2 16:21 Reassessment: Patient appears in no apparent distress at this time. No changes from tw2 previously documented assessment. Patient and/or family updated on plan of care and expected duration. Pain level reassessed. Patient is alert, oriented x 3, equal unlabored respirations, skin warm/dry/pink. pt refused crutches at this time and refused w/c at this time for discharge. pt states "no i just really needed some medicine to help me out but i will follow up with the knee doctor". Vital Signs: 13:01 BP 119 / 80; Pulse 82; Resp 16; Temp 99.4; Pulse Ox 100% ; Weight 113.4 kg; Height 5 sv ft. 8 in. (172.72 cm); 13:56 BP 131 / 82; Pulse 91; Resp 95; Pain 3/10; em1 14:29 BP 119 / 73; Pulse 86; Resp 17; Pulse Ox 95% on R/A; tw2 15:30 BP 125 / 64; Pulse 79; Resp 17; Pulse Ox 97% on R/A; tw2 16:22 BP 122 / 58; Pulse 84; Resp 17; Pulse Ox 99% on R/A; tw2 13:01 Body Mass Index 38.01 (113.40 kg, 172.72 cm) ED Course: 12:40 Patient arrived in ED. ag5 12:59 Arm band placed on. sv 13:00 Triage completed. sv 13:43 Bed in low position. tw2 13:45 Door closed. Warm blanket given. em1 13:52 Armando Hope MD is Attending Physician. [facility] 13:52 Ana Emerson, RN is Primary Nurse. tw2 15:06 Knee Right 3 View XRAY In Process Unspecified. EDMS 16:11 Albert Casillas MD is Referral Physician. [facility] 16:22 No provider procedures requiring assistance completed. Patient did not have IV access tw2 during this emergency room visit. Administered Medications: 16:06 Drug: Motrin 800 mg Route: PO; jl7 16:15 Follow up: Response: No adverse reaction tw2 Outcome: 16:12 Discharge ordered by . [facility] 16:22 Discharged to home ambulatory. tw2 16:22 Condition: stable 16:22 Discharge instructions given to patient, Instructed on discharge instructions, follow up and referral plans. no drinking with medication, no driving heavy equipment, medication usage, Demonstrated understanding of instructions, follow-up care, medications, Prescriptions given X 2. 16:23 Patient left the ED. tw2 Signatures: Dispatcher [employer] EDMS Itzel Carrasco, RN RN Armando Hope MD MD cha Martinez, Eric em1 Ana Emerson RN RN tw2 Jono Simpson RN RN jl7 April Diaz ag5 Corrections: (The following items were deleted from the chart) 13:03 12:59 Chief complaint: Patient states: right knee pain/swelling started Sunday. sv 13:03 13:01 Pulse 82bpm; Resp 16bpm; Pulse Ox 100%; Temp 99.4F; 113.4 kg; Height 5 ft. 8 in.; sv BMI: 38.0; sv
[2020-03-26] MEDS ORDERED: IBUPROFEN 400 MG TAB ONE (16:14)
[2020-03-28 00:47] VITALS: TEMP 99.4
[2020-03-28 00:52] VITALS: BP 122/58; O2SAT 99
== END 2020-03-26 16:23 | disposition home or self-care (01) ==
LOC: ER 12:38
DX: M25.461 Effusion, right knee (principal); I10 Essential (primary) hypertension
CPT/HCPCS: 99283

== ENCOUNTER 2021-03-16 10:44 | Emergency (ER) | payer SELFPAY ==
--- NOTE | 2021-03-16 12:25 | ER ---
Nurse's Notes [facility] Name: Leandra Staton Age: 35 yrs Sex: Male : 1985 Arrival Date: 03/16/2021 Time: 10:50 Bed Waiting Private MD: Diagnosis: Streptococcal pharyngitis Presentation: 03/16 11:36 Chief complaint: Patient states: sore throat started today around 0530 when he woke up. aa5 Pt denies cough/fever. Coronavirus screen: sore throat. Ebola Screen: Patient negative for fever greater than or equal to 101.5 degrees Fahrenheit, and additional compatible Ebola Virus Disease symptoms. Initial Sepsis Screen: Does the patient meet any 2 criteria? No. Patient's initial sepsis screen is negative. Does the patient have a suspected source of infection? No. Patient's initial sepsis screen is negative. Risk Assessment: Do you want to hurt yourself or someone else? Patient reports no desire to harm self or others. Onset of symptoms was February 2021. 11:36 Method Of Arrival: Ambulatory aa5 11:36 Acuity: STEPHANIE 4 aa5 Historical: - Allergies: 11:38 No Known Allergies; aa5 - PMHx: 11:37 Gout; Hypertension; aa5 - Immunization history:: Client reports having NOT received the Covid vaccine. - Social history:: Smoking status: Patient denies any tobacco usage or history of. Vital Signs: 11:36 BP 132 / 86; Pulse 75; Resp 16 S; Temp 98.4(O); Pulse Ox 98% on R/A; Weight 108.86 kg aa5 (R); Height 5 ft. 8 in. (172.72 cm) (R); 11:36 Body Mass Index 36.49 (108.86 kg, 172.72 cm) aa5 ED Course: 10:50 Patient arrived in ED. cl3 10:58 [facility]C [facility] kb 10:58 Armando Hope MD is Attending Physician. kb 11:36 Arm band placed on. aa5 11:37 Triage completed. aa5 Administered Medications: No medications were administered Outcome: 12:25 Discharge ordered by MD. kb 12:28 Patient left the ED. kb Signatures: Anisha Jane FNP-C FNP-Ckb Calderon, Audri, RN RN aa5 Savanna Bernard cl3 Corrections: (The following items were deleted from the chart) 11:38 11:36 Pulse 75bpm; Resp 16bpm; Spontaneous; Pulse Ox 98% RA; Temp 98.4F Oral; aa5 aa5 11:39 11:36 BP 132 / 86; Pulse 75bpm; Resp 16bpm; Spontaneous; Pulse Ox 98% RA; Temp 98.4F aa5 Oral; aa5
--- NOTE | 2021-03-16 12:26 | EDPHYS ---
Physician Documentation [facility] Name: Leandra Staton Age: 35 yrs Sex: Male : 1985 Arrival Date: 03/16/2021 Time: 10:50 Bed Waiting Private MD: RC Physician Armando Hope HPI: 03/16 11:49 This 35 yrs old Male presents to ER via Ambulatory with complaints of Sore kb Throat. 11:49 The patient presents with sore throat. The patient describes throat pain as constant. kb Onset: The symptoms/episode began/occurred this morning, at 05:30. Severity of symptoms: At their worst the symptoms were mild, in the emergency department the symptoms are unchanged. Modifying factors: The symptoms are alleviated by nothing, the symptoms are aggravated by swallowing, Patient's oral intake status: good. Associated signs and symptoms: Pertinent positives: Sore throat Pertinent negatives chest pain, chills, cough, diarrhea, dysphagia, earache, fever, flu-like symptoms, headache, nausea, rhinorrhea, shortness of breath, vomiting. The patient has not experienced similar symptoms in the past. The patient has not recently seen a physician. Historical: - Allergies: 11:38 No Known Allergies; aa5 - PMHx: 11:37 Gout; Hypertension; aa5 - Immunization history:: Client reports having NOT received the Covid vaccine. - Social history:: Smoking status: Patient denies any tobacco usage or history of. ROS: 11:49 Constitutional: Negative for fever, chills, and weight loss. kb 11:49 ENT: Positive for sore throat. 11:49 All other systems are negative. Exam: 11:49 Constitutional: This is a well developed, well nourished patient who is awake, alert, kb and in no acute distress. Head/Face: Normocephalic, atraumatic. ENT: Moist Mucous membranes Respiratory: Respirations even and unlabored. No increased work of breathing, no retractions or nasal flaring. Skin: Warm, dry with normal turgor. Normal color. MS/ Extremity: Pulses equal, no cyanosis. Neurovascular intact. Full, normal range of motion. Neuro: Awake and alert, GCS 15, oriented to person, place, time, and situation. Moves all extremities. Normal gait. Psych: Awake, alert, with orientation to person, place and time. Behavior, mood, and affect are within normal limits. Vital Signs: 11:36 BP 132 / 86; Pulse 75; Resp 16 S; Temp 98.4(O); Pulse Ox 98% on R/A; Weight 108.86 kg aa5 (R); Height 5 ft. 8 in. (172.72 cm) (R); 11:36 Body Mass Index 36.49 (108.86 kg, 172.72 cm) aa5 MDM: 11:41 Patient medically screened. kb 11:49 Data reviewed: vital signs, nurses notes. Data interpreted: Pulse oximetry: on room air kb is 98 %. Interpretation: normal. 12:24 Counseling: I had a detailed discussion with the patient and/or guardian regarding: the kb historical points, exam findings, and any diagnostic results supporting the discharge/admit diagnosis, lab results, the need for outpatient follow up, a family practitioner, to return to the emergency department if symptoms worsen or persist or if there are any questions or concerns that arise at home. 03/16 11:39 Order name: Strep kb 03/16 11:39 Order name: Group A Streptococcus Rapid Sc; Complete Time: 12:21 EDMS Administered Medications: No medications were administered Disposition Summary: 03/16/21 12:25 Discharge Ordered Location: Home kb Condition: Stable kb Diagnosis - Streptococcal pharyngitis kb Followup: kb - With: Emergency Department - When: As needed - Reason: Worsening of condition Followup: kb - With: Private Physician - When: 2 - 3 days - Reason: Recheck today's complaints, Continuance of care, Re-evaluation by your physician Discharge Instructions: - Discharge Summary Sheet kb - Strep Throat, Adult, [id number] kb Forms: - Medication Reconciliation Form kb - Thank You Letter kb - Antibiotic Education kb - Prescription Opioid Use kb Prescriptions: - Augmentin 875-125 mg Oral Tablet - take 1 tablet by ORAL route every 12 hours for 10 days; 20 tablet; Refills: 0, kb Product Selection Permitted Addendum: 03/17/2021 14:47 Co-signature as Attending Physician, Armando Hope MD I agree with the assessment and c dukes plan of care. Signatures: Dispatcher [employer] EDSC Anisha Jane, CORINA-Real JARVISP-Armando Chu MD MD cha Calderon, Audri, RN RN aa5
[2021-03-16 12:34] VITALS: BP 132/86; TEMP 98.4; O2SAT 98
== END 2021-03-16 12:28 | disposition home or self-care (01) ==
LOC: ER 10:44
DX: J02.0 Streptococcal pharyngitis (principal); I10 Essential (primary) hypertension
CPT/HCPCS: 87081; 99281

== ENCOUNTER 2022-09-19 18:29 | Emergency (ER) | payer SELFPAY ==
[2022-09-19] MEDS ORDERED: BUPIVACAINE 0.5% PF 10 ML VIAL ONE (18:44)
--- NOTE | 2022-09-19 18:50 | EDPHYS ---
Physician Documentation [facility] Name: Leandra Staotn Age: 37 yrs Sex: Male : 1985 Arrival Date: 09/19/2022 Time: 18:33 Bed Waiting Private MD: ED Physician Edwardo Howell HPI: 09/19 18:37 This 37 yrs old Male presents to ER via Ambulatory with complaints of Finger jmm Swelling. 18:37 Onset: The symptoms/episode began/occurred gradually. Modifying factors: The symptoms jmm are alleviated by nothing, the symptoms are aggravated by nothing. Is a 37-year-old male with history of hypertension and gout the presents emerged part with complaints of left third finger swelling and purulent drainage. Denies fever. Patient states he is expressed a copious amount of pus and blood throughout the day.. Historical: - Allergies: 18:38 No Known Allergies; ap3 - Home Meds: 18:38 None [Active]; ap3 - PMHx: 18:38 Gout; Hypertension; ap3 - Immunization history:: Client reports having NOT received the Covid vaccine. Flu vaccine is not up to date. - Social history:: Smoking status: Patient denies any tobacco usage or history of. ROS: 18:37 Constitutional: Negative for fever, chills, and weight loss, Cardiovascular: Negative jmm for chest pain, palpitations, and edema, Respiratory: Negative for shortness of breath, cough, wheezing, and pleuritic chest pain. 18:37 MS/extremity: Positive for pain. 18:37 All other systems are negative. Exam: 18:37 Constitutional: This is a well developed, well nourished patient who is awake, alert, jmm and in no acute distress. Head/Face: atraumatic. Eyes: EOMI, no conjunctival erythema appreciated ENT: Moist Mucus Membranes Neck: Trachea midline, Supple Chest/axilla: Normal chest wall appearance and motion. Cardiovascular: Regular rate and rhythm. No edema appreciated Respiratory: Normal respirations, no respiratory distress appreciated Abdomen/GI: Non distended Back: Normal ROM Skin: General appearance color normal 18:37 Musculoskeletal/extremity: Erythema noted surrounding the nail plate to the left third finger, no purulent drainage appreciated, tender to palpation, less than 2 seconds cap refill, full range of motion, neurovascular intact. 18:37 Skin: Appearance: Color: normal in color. 18:37 Neuro: Orientation: is normal, Mentation: is normal, Memory: is normal. 18:37 Psych: Behavior/mood is pleasant, cooperative. Vital Signs: 18:37 BP 132 / 72; Pulse 72; Resp 18; Temp 97.8; Pulse Ox 100% ; Weight 90.72 kg; ap3 Procedures: 18:48 Nerve block: (digital) of Left third finger. Medication: Marcaine 0.5%, Amount: 3 mls jmm were injected, Effect: the patient's symptoms are improved, Performed by Terence PERERA Patient tolerated well. MDM: 18:45 Patient medically screened. m 18:48 Differential diagnosis: Paronychia, cellulitis. Data reviewed: vital signs, nurses jmm notes. I considered the following discharge prescriptions or medication management in the emergency department Medications were administered in the Emergency Department. See MAR. Counseling: I had a detailed discussion with the patient and/or guardian regarding: the historical points, exam findings, and any diagnostic results supporting the discharge/admit diagnosis, the need for outpatient follow up, to return to the emergency department if symptoms worsen or persist or if there are any questions or concerns that arise at home. Administered Medications: 18:55 Drug: Marcaine (bupivacaine) (0.5 %) 10 ml Volume: 10 ml; Route: Infiltration; ap3 18:55 Drug: Doxycycline 100 mg Route: PO; ap3 Disposition Summary: 09/19/22 18:49 Discharge Ordered Location: Home [facility] Condition: Stable [facility] Diagnosis - Paronychia [facility] Followup: [facility] - With: Private Physician - When: 2 - 3 days - Reason: Recheck today's complaints, Continuance of care, Re-evaluation by your physician Discharge Instructions: - Discharge Summary Sheet [facility] - Paronychia [facility] Forms: - Work release form jmm - Medication Reconciliation Form [facility] - Thank You Letter [facility] - Antibiotic Education [facility] - Prescription Opioid Use [facility] Prescriptions: - Doxycycline Hyclate 100 mg Oral Tablet - take 1 tablet by ORAL route every 12 hours; 20 tablet; Refills: 0, Product jm Selection Permitted Signatures: Terence Wheeler PA PA jmm Prokisch, Amanda, RN RN ap3 Corrections: (The following items were deleted from the chart) 18:38 18:38 Allergies: Aspirin; ap3 ap3
--- NOTE | 2022-09-19 18:50 | ER ---
Nurse's Notes [facility] Name: Leandra Staton Age: 37 yrs Sex: Male : 1985 Arrival Date: 09/19/2022 Time: 18:33 Bed Waiting Private MD: Diagnosis: Paronychia Presentation: 09/19 18:37 Chief complaint: Patient states: he has left middle finger pain around the finger nail ap3 that started yesterday 09/18/2022. patient states he has been "squeezing puss" out of it all day today. patient rates pain 8/10 on a pain scale. Coronavirus screen: At this time, the client does not indicate any symptoms associated with coronavirus-19. Ebola Screen: No symptoms or risks identified at this time. Initial Sepsis Screen: Does the patient meet any 2 criteria? No. Patient's initial sepsis screen is negative. Does the patient have a suspected source of infection? No. Patient's initial sepsis screen is negative. Risk Assessment: Do you want to hurt yourself or someone else? Patient reports no desire to harm self or others. Onset of symptoms was September 18, 2022. 18:37 Method Of Arrival: Ambulatory ap3 18:37 Acuity: STEPHANIE 4 ap3 Triage Assessment: 18:38 General: Appears in no apparent distress. Behavior is calm, cooperative, appropriate ap3 for age. Pain: Complains of pain in left middle fingernail Pain began 1 day ago. Neuro: Level of Consciousness is awake, alert, obeys commands, Oriented to person, place, time, situation. Respiratory: Airway is patent Respiratory effort is even, unlabored, Respiratory pattern is regular, symmetrical. Historical: - Allergies: 18:38 No Known Allergies; ap3 - Home Meds: 18:38 None [Active]; ap3 - PMHx: 18:38 Gout; Hypertension; ap3 - Immunization history:: Client reports having NOT received the Covid vaccine. Flu vaccine is not up to date. - Social history:: Smoking status: Patient denies any tobacco usage or history of. Screenin:39 [facility] ED Fall Risk Assessment (Adult) History of falling in the last 3 months, ap3 including since admission No falls in past 3 months (0 pts). Abuse screen: Denies threats or abuse. Nutritional screening: No deficits noted. Tuberculosis screening: No symptoms or risk factors identified. Vital Signs: 18:37 BP 132 / 72; Pulse 72; Resp 18; Temp 97.8; Pulse Ox 100% ; Weight 90.72 kg; ap3 ED Course: 18:33 Patient arrived in ED. rg4 18:36 Armando Argueta PA is PHCP. cp 18:36 Edwardo Howell MD is Attending Physician. cp 18:37 PHCP role handed off by Armando Argueta PA jmm 18:37 Terence Wheeler PA is PHCP. [facility] 18:38 Triage completed. ap3 18:39 Arm band placed on right wrist. ap3 18:39 Patient has correct armband on for positive identification. Pulse ox on. NIBP on. ap3 18:54 No provider procedures requiring assistance completed. Patient did not have IV access ap3 during this emergency room visit. Administered Medications: 18:55 Drug: Marcaine (bupivacaine) (0.5 %) 10 ml Volume: 10 ml; Route: Infiltration; ap3 18:55 Drug: Doxycycline 100 mg Route: PO; ap3 Medication: 18:39 VIS not applicable for this client. ap3 Outcome: 18:49 Discharge ordered by . jm 18:54 Discharged to home ambulatory. ap3 18:54 Condition: good 18:54 Discharge instructions given to patient, Instructed on discharge instructions, follow up and referral plans. medication usage, Demonstrated understanding of instructions, follow-up care, medications, Prescriptions given X 1. 18:55 Patient left the ED. ap3 Signatures: Terence Wheeler PA PA jmm Page, Corey, PA PA cp Garcia, Rubi rg4 Jackie Perez, RN RN ap3 Corrections: (The following items were deleted from the chart) 18:38 18:38 Allergies: Aspirin; ap3 ap3
[2022-09-19 19:01] VITALS: BP 132/72; TEMP 97.8; O2SAT 100
== END 2022-09-19 18:55 | disposition home or self-care (01) ==
LOC: ER 18:29
DX: L03.012 Cellulitis of left finger (principal)

== ENCOUNTER 2022-09-24 11:55 | Emergency (ER) | payer SELFPAY ==
[2022-09-24 12:51] LABS: Urine Blood 1+ (Negative); Urine Glucose Negative (Negative); Urine Protein Negative (Negative); Urine pH 6.5 (5.0-7.0)
[2022-09-24] MEDS ORDERED: IBUPROFEN 400 MG TAB ONE (12:55)
--- NOTE | 2022-09-24 13:45 | RAD REPORT ---
EXAM DESCRIPTION: US - Extremity Nonvascular Limited - 09/24/2022 1:21 pm CLINICAL HISTORY: RT GROIN PAIN COMPARISON: none FINDINGS: No mass is visualized. No obvious hernia noted. IMPRESSION: Unremarkable sonographic evaluation of right inguinal region. If strong clinical suspici on persists for a hernia CT would be recommended
--- NOTE | 2022-09-24 15:24 | RAD REPORT ---
EXAM DESCRIPTION: CT - Stone Protocol - 09/24/2022 3:08 pm CLINICAL HISTORY: Abdominal pain. Right groin pain COMPARISON: None. TECHNIQUE: Computed axial tomography of the abdomen pelvis was obtained without oral or IV contrast. Lack of IV and oral contrast limits evaluation of solid organs, appendix, bowel, and vessels. Cuellar l reformatted images were obtained and reviewed. All CT scans are performed using dose optimization technique as appropriate and may include automated exposure control or mA/KV adjustment according to patient size. FINDINGS: A renal calculus is not seen. An ureteral calculus is not noted. A bladder calculus is not present. Small prostatic calcifications The liver, spleen, pancreas and adrenals appear grossly normal There is no evidence of diverticulitis. The appendix appears normal An inguinal hernia is not seen. IMPRESSION: Negative for a genitourinary calculus
--- NOTE | 2022-09-24 15:41 | ER ---
Nurse's Notes [facility] Name: Leandra Staton Age: 37 yrs Sex: Male : 1985 Arrival Date: 09/24/2022 Time: 11:56 Bed 15 Private MD: Diagnosis: Right groin pain, right thigh pain, hematuria Presentation: 09/24 12:12 Chief complaint: Patient states: Noticed Right side groin pain on Sunday09/22/22 at vg1 work, then after work went to go workout and noticed increase in pain. States feels like a pulling sensation/throbbing. No s/s of urine. Coronavirus screen: Vaccine status: Patient reports being unvaccinated. Client denies travel out of the [place] in the last 14 days. Ebola Screen: Patient negative for fever greater than or equal to 101.5 degrees Fahrenheit, and additional compatible Ebola Virus Disease symptoms. Initial Sepsis Screen: Does the patient meet any 2 criteria? No. Patient's initial sepsis screen is negative. Does the patient have a suspected source of infection? No. Patient's initial sepsis screen is negative. Risk Assessment: Do you want to hurt yourself or someone else? Patient reports no desire to harm self or others. Onset of symptoms was September 22, 2022. 12:12 Method Of Arrival: Ambulatory vg1 12:12 Acuity: STEPHANIE 3 vg1 Triage Assessment: 12:14 General: Appears in no apparent distress. uncomfortable, Behavior is calm, cooperative. vg1 Pain: Complains of pain in groin and right femoral area Pain currently is 7 out of 10 on a pain scale. at worst was 9 out of 10 on a pain scale. Pain began 2-3 days ago. : Denies burning with urination, pain. Musculoskeletal: Circulation, motion, and sensation intact. Historical: - Allergies: 12:14 No Known Allergies; vg1 - Home Meds: 12:14 None [Active]; vg1 - PMHx: 12:14 Gout; Hypertension; vg1 - PSHx: 12:14 None; vg1 - Immunization history:: Client reports having NOT received the Covid vaccine. - Social history:: Smoking status: Patient denies any tobacco usage or history of. Screenin:17 [facility] ED Fall Risk Assessment (Adult) Score/Fall Risk Level 0 - 2 = Low Risk ll1 Oriented to surroundings, Maintained a safe environment, Educated pt \T\ family on fall prevention, incl call for assistance when getting out of bed, Hourly rounding (assess needs \T\ fall precautionary measures) done. Abuse screen: Denies threats or abuse. Nutritional screening: No deficits noted. Tuberculosis screening: No symptoms or risk factors identified. Assessment: 12:44 Reassessment: No changes from previously documented assessment. gait steady to restroom.ll1 14:28 Reassessment: No changes from previously documented assessment. Patient and/or family ll1 updated on plan of care and expected duration. Pain level reassessed. Patient is alert, oriented x 3, equal unlabored respirations, skin warm/dry/pink. 14:50 Reassessment: No changes from previously documented assessment. ll1 15:48 Reassessment: Patient appears in no apparent distress at this time. No changes from ll1 previously documented assessment. Patient and/or family updated on plan of care and expected duration. Pain level reassessed. Patient is alert, oriented x 3, equal unlabored respirations, skin warm/dry/pink. Vital Signs: 12:12 BP 121 / 78; Pulse 68; Resp 16; Temp 98.3(O); Pulse Ox 100% on R/A; Weight 90.72 kg; vg1 Height 5 ft. 8 in. (172.72 cm); Pain 7/10; 12:12 Body Mass Index 30.41 (90.72 kg, 172.72 cm) vg1 ED Course: 11:56 Patient arrived in ED. am2 12:14 Triage completed. vg1 12:14 Arm band placed on. vg1 12:16 Seb Bernard, RN is Primary Nurse. ll1 12:17 Patient placed in an exam room, on a stretcher. ll1 12:17 Patient has correct armband on for positive identification. Bed in low position. Call ll1 light in reach. Side rails up X2. Cardiac monitoring not applicable on this patient. 12:34 Quinton Andrade MD is Attending Physician. kdr 12:44 No provider procedures requiring assistance completed. Patient did not have IV access ll1 during this emergency room visit. Administered Medications: 12:56 Drug: Ibuprofen 800 mg Route: PO; ll1 15:00 Follow up: Response: No adverse reaction ll1 16:01 Follow up: Response: No adverse reaction; Pain is decreased; RASS: Alert and Calm (0) ll1 Medication: 12:17 VIS not applicable for this client. ll1 Outcome: 15:41 Discharge ordered by . kdr 15:48 Patient left the ED. ll1 15:48 Discharged to home ambulatory. ll1 15:48 Condition: stable 15:48 Discharge instructions given to patient, Instructed on discharge instructions, follow up and referral plans. no driving heavy equipment, medication usage, Demonstrated understanding of instructions, follow-up care, medications, Prescriptions given X 1. Signatures: Quinton Andrade MD MD kdr Moreno, Amanda am2 Garcia, Victoria, RN RN vg1 Seb Bernard RN RN ll1
--- NOTE | 2022-09-24 15:41 | EDPHYS ---
Physician Documentation [facility] Name: Leandra Staton Age: 37 yrs Sex: Male : 1985 Arrival Date: 09/24/2022 Time: 11:56 Bed 15 Private MD: ED Physician Quinton Andrade HPI: 09/24 17:50 This 37 yrs old Male presents to ER via Ambulatory with complaints of Groin kdr Pain - right side. 17:51 Patient noted right groin pain on Sunday the third. While at work. Subsequently after kdr work, he went to workout and the pain became worse. Patient states he feels like there is a pulling throbbing sensation. He denies testicular or scrotal pain. He denies changes in urine. Not had anything like this before. Although the pain is bothersome, he he does not appear toxic in the ED.. Onset: The symptoms/episode began/occurred acutely, 2 day(s) ago. Severity of symptoms: At their worst the symptoms were mild moderate just prior to arrival, in the emergency department the symptoms are unchanged. The patient has not experienced similar symptoms in the past. The patient has not recently seen a physician. Historical: - Allergies: 12:14 No Known Allergies; vg1 - Home Meds: 12:14 None [Active]; vg1 - PMHx: 12:14 Gout; Hypertension; vg1 - PSHx: 12:14 None; vg1 - Immunization history:: Client reports having NOT received the Covid vaccine. - Social history:: Smoking status: Patient denies any tobacco usage or history of. ROS: 17:51 Constitutional: Negative for fever, chills, and weight loss, Eyes: Negative for injury, kdr pain, redness, and discharge, ENT: Negative for injury, pain, and discharge, Neck: Negative for injury, pain, and swelling, Cardiovascular: Negative for chest pain, palpitations, and edema, Respiratory: Negative for shortness of breath, cough, wheezing, and pleuritic chest pain, Abdomen/GI: Negative for abdominal pain, nausea, vomiting, diarrhea, and constipation, Back: Negative for injury and pain, : Negative for injury, bleeding, discharge, and swelling, Skin: Negative for injury, rash, and discoloration, Neuro: Negative for headache, weakness, numbness, tingling, and seizure activity. Psych: Negative for depression, anxiety, suicide ideation, homicidal ideation, and hallucinations, Allergy/Immunology: Negative for hives, rash, and allergies, Endocrine: Negative for neck swelling, polydipsia, polyuria, polyphagia, and marked weight changes, Hematologic/Lymphatic: Negative for swollen nodes, abnormal bleeding, and unusual bruising. 17:51 MS/extremity: Positive for Right groin pain specifically the right proximal thigh. Exam: 17:51 Constitutional: This is a well developed, well nourished patient who is awake, alert, kdr and in no acute distress. Head/Face: Normocephalic, atraumatic. Eyes: Pupils equal round and reactive to light, extra-ocular motions intact. Lids and lashes normal. Conjunctiva and sclera are non-icteric and not injected. Cornea within normal limits. Periorbital areas with no swelling, redness, or edema. Neck: Trachea midline, no thyromegaly or masses palpated, and no cervical lymphadenopathy. Supple, full range of motion without nuchal rigidity, or vertebral point tenderness. No Meningismus. Chest/axilla: Normal chest wall appearance and motion. Nontender with no deformity. No lesions are appreciated. Cardiovascular: Regular rate and rhythm with a normal S1 and S2. No gallops, murmurs, or rubs. Normal PMI, no JVD. No pulse deficits. Respiratory: Lungs have equal breath sounds bilaterally, clear to auscultation and percussion. No rales, rhonchi or wheezes noted. No increased work of breathing, no retractions or nasal flaring. Abdomen/GI: Soft, non-tender, with normal bowel sounds. No distension or tympany. No guarding or rebound. No evidence of tenderness throughout. Back: No spinal tenderness. No costovertebral tenderness. Full range of motion. Skin: Warm, dry with normal turgor. Normal color with no rashes, no lesions, and no evidence of cellulitis. Neuro: Awake and alert, GCS 15, oriented to person, place, time, and situation. Cranial nerves II-XII grossly intact. Motor strength 5/5 in all extremities. Sensory grossly intact. Cerebellar exam normal. Normal gait. Psych: Awake, alert, with orientation to person, place and time. Behavior, mood, and affect are within normal limits. 17:51 Musculoskeletal/extremity: The patient's extremity exam is completely normal except for pain on very deep palpation of the groin.. Vital Signs: 12:12 BP 121 / 78; Pulse 68; Resp 16; Temp 98.3(O); Pulse Ox 100% on R/A; Weight 90.72 kg; vg1 Height 5 ft. 8 in. (172.72 cm); Pain 7/10; 12:12 Body Mass Index 30.41 (90.72 kg, 172.72 cm) vg1 MDM: 15:41 Patient medically screened. kdr 17:51 Data reviewed: vital signs, nurses notes, lab test result(s), radiologic studies. kdr 09/24 12:36 Order name: Urine Dipstick-Ancillary (obtain specimen); Complete Time: 12:50 kdr 09/24 12:46 Order name: US Scrotum Testicles kdr 09/24 12:51 Order name: Urine Dipstick-Ancillary; Complete Time: 14:45 EDMS 09/24 13:45 Order name: US; Complete Time: 14:45 EDMS 09/24 14:49 Order name: CT Stone Protocol kdr 09/24 15:24 Order name: CT; Complete Time: 17:54 EDMS Administered Medications: 12:56 Drug: Ibuprofen 800 mg Route: PO; ll1 15:00 Follow up: Response: No adverse reaction ll1 16:01 Follow up: Response: No adverse reaction; Pain is decreased; RASS: Alert and Calm (0) ll1 Disposition Summary: 09/24/22 15:41 Discharge Ordered Location: Home kdr Problem: new kdr Symptoms: have improved kdr Condition: Stable kdr Diagnosis - Right groin pain, right thigh pain, hematuria kdr Followup: kdr - With: Private Physician - When: 2 - 3 days - Reason: If symptoms return, Further diagnostic work-up, Recheck today's complaints, Continuance of care, Re-evaluation by your physician Discharge Instructions: - Discharge Summary Sheet kdr - Hematuria, Adult kdr - Musculoskeletal Pain kdr Forms: - Medication Reconciliation Form kdr - Thank You Letter kdr - Prescription Opioid Use kdr - Work release form ll1 Prescriptions: - Tramadol 50 mg Oral Tablet - take 1 tablet by ORAL route every 8 hours as needed at night only as needed for kdr pain during sleep; 12 tablet; Refills: 0, Product Selection Permitted Signatures: Dispatcher Inaaya EDSC Rittger, Quinton, MD MD kdr Marine Rhodes RN RN vg1 Seb Bernard RN RN ll1
[2022-09-24 15:55] VITALS: BP 121/78; TEMP 98.3; O2SAT 100
== END 2022-09-24 15:48 | disposition home or self-care (01) ==
LOC: ER 11:55
DX: R10.31 Right lower quadrant pain (principal); M79.651 Pain in right thigh; R31.9 Hematuria, unspecified; I10 Essential (primary) hypertension
CPT/HCPCS: 74176; 76377; 76882; 81003; 99283

== ENCOUNTER 2022-09-26 14:37 | Emergency (ER) | payer SELFPAY ==
[2022-09-26 15:33] VITALS: BP 127/76; TEMP 97.6; O2SAT 97
--- NOTE | 2022-10-13 14:22 | EDPHYS ---
Physician Documentation [facility] Name: Leandra Staton Age: 37 yrs Sex: Male : 1985 Arrival Date: 09/26/2022 Time: 14:40 Bed IW6 Private MD: ED Physician Armando Hope HPI: 09/26 15:06 This 37 yrs old Male presents to ER via Ambulatory with complaints of Follow [facility] up. 15:06 This is a 37-year-old male with history of gout and hypertension the presents emerged [facility] department with currently no complaints. Patient was seen in the ED previously for hematuria and right groin pain. Patient was evaluated with no acute findings. Patient states all his symptoms have gone away, denies any pain or hematuria currently.. Historical: - Allergies: 15:05 No Known Allergies; ld1 - PMHx: 15:05 Gout; Hypertension; ld1 - Immunization history:: Adult Immunizations up to date, Client reports receiving the 2nd dose of the Covid vaccine. - Social history:: Smoking status: Patient denies any tobacco usage or history of. Patient/guardian denies using alcohol. ROS: 15:06 Constitutional: Negative for fever, chills, and weight loss, Cardiovascular: Negative jm for chest pain, palpitations, and edema, Respiratory: Negative for shortness of breath, cough, wheezing, and pleuritic chest pain. 15:06 All other systems are negative. Exam: 15:06 Constitutional: This is a well developed, well nourished patient who is awake, alert, jmm and in no acute distress. Head/Face: atraumatic. Eyes: EOMI, no conjunctival erythema appreciated ENT: Moist Mucus Membranes Neck: Trachea midline, Supple Chest/axilla: Normal chest wall appearance and motion. Cardiovascular: Regular rate and rhythm. No edema appreciated Respiratory: Normal respirations, no respiratory distress appreciated Abdomen/GI: Non distended Back: Normal ROM Skin: General appearance color normal MS/ Extremity: Moves all extremities, no obvious deformities appreciated, no edema noted to the lower extremities Neuro: Awake and alert Psych: Behavior is normal, Mood is normal, Patient is cooperative and pleasant Vital Signs: 15:04 BP 127 / 76; Pulse 62; Resp 18; Temp 97.6; Pulse Ox 97% on R/A; Weight 90.72 kg; Height ld1 5 ft. 8 in. ; Pain 0/10; 15:04 Body Mass Index 30.41 (90.72 kg, 172.72 cm) ld1 15:04 Pain Scale: Adult ld1 MDM: 15:03 Patient medically screened. lucie 17:51 Differential diagnosis: viral Infection. Data reviewed: vital signs, nurses notes. jm Counseling: I had a detailed discussion with the patient and/or guardian regarding: the historical points, exam findings, and any diagnostic results supporting the discharge/admit diagnosis, the need for outpatient follow up, to return to the emergency department if symptoms worsen or persist or if there are any questions or concerns that arise at home. Administered Medications: No medications were administered Disposition Summary: 09/26/22 15:06 Discharge Ordered Location: Home [facility] Condition: Stable [facility] Diagnosis - Person with feared health complaint in whom no diagnosis is made yan Followup: jm - With: Private Physician - When: As needed - Reason: Recheck today's complaints, Continuance of care, Re-evaluation by your physician Discharge Instructions: - Discharge Summary Sheet [facility] - Form - Return To Work jm Forms: - Work release form [facility] - Medication Reconciliation Form [facility] - Thank You Letter [facility] - Antibiotic Education [facility] - Prescription Opioid Use [facility] Signatures: Terence Wheeler PA PA jmm Dibbern, Lauren, RN RN ld1
--- NOTE | 2022-10-13 14:22 | ER ---
Nurse's Notes [facility] Name: Leandra Staton Age: 37 yrs Sex: Male : 1985 Arrival Date: 09/26/2022 Time: 14:40 Bed IW6 Private MD: Diagnosis: Person with feared health complaint in whom no diagnosis is made Presentation: 09/26 15:04 Chief complaint: Patient states: I tried to go to work today \T\ my boss said I need to ld1 be cleared to go back to work due to the Tramadol I was prescribed. Coronavirus screen: At this time, the client does not indicate any symptoms associated with coronavirus-19. Ebola Screen: No symptoms or risks identified at this time. Initial Sepsis Screen: Does the patient meet any 2 criteria? No. Patient's initial sepsis screen is negative. Does the patient have a suspected source of infection? No. Patient's initial sepsis screen is negative. Risk Assessment: Do you want to hurt yourself or someone else? Patient reports no desire to harm self or others. Onset of symptoms was September 26, 2022. 15:04 Method Of Arrival: Ambulatory ld1 15:04 Acuity: STEPHANIE 5 ld1 Triage Assessment: 15:05 General: Appears in no apparent distress. comfortable, Behavior is calm, cooperative, ld1 appropriate for age. Pain: Denies pain. EENT: No signs and/or symptoms were reported regarding the EENT system. Neuro: Level of Consciousness is awake, alert, obeys commands, Oriented to person, place, time, situation. Cardiovascular: Capillary refill < 3 seconds Patient's skin is warm and dry. Respiratory: Airway is patent Respiratory effort is even, unlabored. GI: Abdomen is flat, non-distended. : No signs and/or symptoms were reported regarding the genitourinary system. Derm: No signs and/or symptoms reported regarding the dermatologic system. Musculoskeletal: No signs and/or symptoms reported regarding the musculoskeletal system. Historical: - Allergies: 15:05 No Known Allergies; ld1 - PMHx: 15:05 Gout; Hypertension; ld1 - Immunization history:: Adult Immunizations up to date, Client reports receiving the 2nd dose of the Covid vaccine. - Social history:: Smoking status: Patient denies any tobacco usage or history of. Patient/guardian denies using alcohol. Screenin:06 [facility] ED Fall Risk Assessment (Adult) History of falling in the last 3 months, ld1 including since admission No falls in past 3 months (0 pts). Abuse screen: Denies threats or abuse. Denies injuries from another. Nutritional screening: No deficits noted. Tuberculosis screening: No symptoms or risk factors identified. Assessment: 15:06 Reassessment: See triage assessment. ERP in triage assessing patinet. ld1 Vital Signs: 15:04 BP 127 / 76; Pulse 62; Resp 18; Temp 97.6; Pulse Ox 97% on R/A; Weight 90.72 kg; Height ld1 5 ft. 8 in. ; Pain 0/10; 15:04 Body Mass Index 30.41 (90.72 kg, 172.72 cm) ld1 15:04 Pain Scale: Adult ld1 ED Course: 14:40 Patient arrived in ED. mr 14:56 Terence Wheeler PA is PHCP. lucie 14:56 Armando Hope MD is Attending Physician. lucie 15:05 Triage completed. ld1 15:05 Arm band placed on right wrist. ld1 15:06 Patient has correct armband on for positive identification. Placed in gown. Bed in low ld1 position. Call light in reach. Side rails up X2. Pulse ox on. NIBP on. Door closed. Noise minimized. 15:06 No provider procedures requiring assistance completed. Patient did not have IV access ld1 during this emergency room visit. Administered Medications: No medications were administered Medication: 15:06 VIS not applicable for this client. ld1 Outcome: 15:06 Discharge ordered by MD. faulkner 15:09 Discharged to home ambulatory. ld1 15:09 Condition: stable 15:09 Discharge instructions given to patient, Instructed on discharge instructions, follow up and referral plans. Demonstrated understanding of instructions, follow-up care. 15:09 Patient left the ED. ld1 Signatures: Terence Wheeler PA PA jmm Rivera, Mary Jennifer Cordoba, RN RN ld1 Corrections: (The following items were deleted from the chart) 15:06 15:04 BP 142 / 86; Pulse 62bpm; Resp 18bpm; Pulse Ox 97% RA; Temp 97.6F; 90.72 kg; ld1 Height 5 ft. 8 in.; BMI: 30.4; Pain 0/10, Adult; ld1
== END 2022-09-26 15:09 | disposition home or self-care (01) ==
LOC: ER 14:37
DX: Z71.1 Person with feared health complaint in whom no diagnosis is made (principal)
CPT/HCPCS: 99283

== ENCOUNTER 2023-06-25 13:18 | Emergency (ER) | payer SELFPAY ==
--- NOTE | 2023-06-25 14:13 | ER ---
Nurse's Notes [facility] Name: Leandra Staton Age: 38 yrs Sex: Male : 1985 Arrival Date: 06/25/2023 Time: 13:18 Bed IW8 Private MD: Diagnosis: Acute bronchitis, unspecified Presentation: 06/25 14:00 Chief complaint: Patient states: cold, stuffy nose since Sunday. Coronavirus screen: iw Client presents with at least one sign or symptom that may indicate coronavirus-19. Ebola Screen: Patient negative for fever greater than or equal to 101.5 degrees Fahrenheit, and additional compatible Ebola Virus Disease symptoms Patient denies exposure to infectious person. Patient denies travel to an Ebola-affected area in the 21 days before illness onset. No symptoms or risks identified at this time. Initial Sepsis Screen: Does the patient meet any 2 criteria? No. Patient's initial sepsis screen is negative. Does the patient have a suspected source of infection? No. Patient's initial sepsis screen is negative. Risk Assessment: Do you want to hurt yourself or someone else? Patient reports no desire to harm self or others. 14:00 Method Of Arrival: Ambulatory iw 14:00 Acuity: STEPHANIE 4 iw Historical: - Allergies: 14:01 No Known Allergies; iw - PMHx: 14:01 Gout; Hypertension; iw Vital Signs: 14:00 BP 124 / 89; Pulse 65; Resp 19; Temp 99; Pulse Ox 99% on R/A; Weight 95.25 kg; Height 5 iw ft. 8 in. ; 14:00 Body Mass Index 31.93 (95.25 kg, 172.72 cm) ED Course: 13:21 Patient arrived in ED. mg5 13:26 Gay Garcia FNP-C is PHCP. snw 13:26 Edwardo Howell MD is Attending Physician. snw 14:00 Triage completed. iw 14:17 Taryn Quintana RN is Primary Nurse. iw Administered Medications: No medications were administered Outcome: 14:13 Discharge ordered by . snw 14:17 Patient left the ED. iw Signatures: Gay Garcia FNP-C INSOLE [employer]ESSER-Csnw Taryn Quintana RN RN Adriana Chiang mg5 Corrections: (The following items were deleted from the chart) 14:01 14:00 Pulse 65bpm; Resp 19bpm; Pulse Ox 99% RA; Temp 99F; 95.25 kg; Height 5 ft. 8 in.; iw BMI: 31.9; iw
--- NOTE | 2023-06-25 14:14 | EDPHYS ---
Physician Documentation [facility] Name: Leandra Staton Age: 38 yrs Sex: Male : 1985 Arrival Date: 06/25/2023 Time: 13:18 Bed IW8 Private MD: ED Physician Edwardo Howell HPI: 06/25 14:04 This 38 yrs old Male presents to ER via Ambulatory with complaints of Flu snw Symptoms. 14:04 Onset: The symptoms/episode began/occurred acutely, 3 week(s) ago, and improved. snw Associated signs and symptoms: Pertinent positives: cough, nasal discharge, sore throat. The patient has not experienced similar symptoms in the past. pt feeling better, continued intermittent cough. Historical: - Allergies: 14: No Known Allergies; iw - PMHx: 14: Gout; Hypertension; iw ROS: 14:04 Eyes: Negative for injury, pain, redness, and discharge, snw 14:04 Neck: Negative for injury, pain, and swelling, Cardiovascular: Negative for chest pain, palpitations, and edema, 14:04 Abdomen/GI: Negative for abdominal pain, nausea, vomiting, diarrhea, and constipation, Back: Negative for injury and pain, : Negative for injury, bleeding, discharge, and swelling, MS/Extremity: Negative for injury and deformity, Skin: Negative for injury, rash, and discoloration, Neuro: Negative for headache, weakness, numbness, tingling, and seizure, Psych: Negative for depression, anxiety, suicide ideation, homicidal ideation, and hallucinations, 14:04 Constitutional: Positive for body aches, chills, fever, malaise, 14:04 ENT: Positive for rhinorrhea, sinus congestion, sore throat, 14:04 Respiratory: Positive for cough, Exam: 14:06 Constitutional: This is a well developed, well nourished patient who is awake, alert, snw and in no acute distress. Head/Face: Normocephalic, atraumatic. Eyes: Pupils equal round and reactive to light, extra-ocular motions intact. Lids and lashes normal. Conjunctiva and sclera are non-icteric and not injected. Cornea within normal limits. Periorbital areas with no swelling, redness, or edema. ENT: Nares patent. No nasal discharge, no septal abnormalities noted. Tympanic membranes are normal and external auditory canals are clear. Oropharynx with no redness, swelling, or masses, exudates, or evidence of obstruction, uvula midline. Mucous membranes moist. Neck: Trachea midline, no thyromegaly or masses palpated, and no cervical lymphadenopathy. Supple, full range of motion without nuchal rigidity, or vertebral point tenderness. No Meningismus. Chest/axilla: Normal chest wall appearance and motion. Nontender with no deformity. No lesions are appreciated. Cardiovascular: Regular rate and rhythm with a normal S1 and S2. No gallops, murmurs, or rubs. Normal PMI, no JVD. No pulse deficits. Respiratory: Lungs have equal breath sounds bilaterally, clear to auscultation and percussion. No rales, rhonchi or wheezes noted. No increased work of breathing, no retractions or nasal flaring. Abdomen/GI: Soft, non-tender, with normal bowel sounds. No distension or tympany. No guarding or rebound. No evidence of tenderness throughout. Back: No spinal tenderness. No costovertebral tenderness. Full range of motion. Skin: Warm, dry with normal turgor. Normal color with no rashes, no lesions, and no evidence of cellulitis. MS/ Extremity: Pulses equal, no cyanosis. Neurovascular intact. Full, normal range of motion. Neuro: Awake and alert, GCS 15, oriented to person, place, time, and situation. Cranial nerves II-XII grossly intact. Motor strength 5/5 in all extremities. Sensory grossly intact. Cerebellar exam normal. Normal gait. Psych: Awake, alert, with orientation to person, place and time. Behavior, mood, and affect are within normal limits. Vital Signs: 14:00 BP 124 / 89; Pulse 65; Resp 19; Temp 99; Pulse Ox 99% on R/A; Weight 95.25 kg; Height 5 iw ft. 8 in. ; 14:00 Body Mass Index 31.93 (95.25 kg, 172.72 cm) iw MDM: 13:52 Patient medically screened. snw 14:05 Differential diagnosis: bronchitis, flu, URI. Antibiotic administration: Not indicated. snw Data reviewed: vital signs, nurses notes. Counseling: I had a detailed discussion with the patient and/or guardian regarding the historical points, exam findings, and any diagnostic results supporting the discharge/admit diagnosis, the need for outpatient follow up, for definitive care, to return to the emergency department if symptoms worsen or persist or if there are any questions or concerns that arise at home. Special discussion: Based on the history and exam findings, there is no indication for further emergent testing or inpatient evaluation. I discussed with the patient/guardian the need to see the primary care provider for further evaluation of the symptoms. Administered Medications: No medications were administered Disposition: 16:57 Co-signature as Attending Physician, Edwardo Howell MD I reviewed the patient's care rn provided by the Advanced Practice Provider and agree with the diagnosis and treatment plan. Disposition Summary: 06/25/23 14:13 Discharge Ordered Notes: Location: Home snw Condition: Stable snw Diagnosis - Acute bronchitis, unspecified snw Followup: snw - With: Emergency Department - When: As needed - Reason: Worsening of condition Followup: snw - With: Private Physician - When: 2 - 3 days - Reason: Recheck today's complaints, Continuance of care, Re-evaluation by your physician Discharge Instructions: - Discharge Summary Sheet snw - Acute Bronchitis, Adult snw - Viral Respiratory Infection snw - Rehydration, Adult snw Forms: - Work release form snw - Medication Reconciliation Form snw - Thank You Letter snw - Antibiotic Education snw - Prescription Opioid Use snw - Patient Portal Instructions snw - Leadership Thank You Letter snw Prescriptions: - Zyrtec 10 mg Oral Tablet - take 1 tablet ORAL route once daily As needed; 20 tablet; Refills: 0, Product snw Selection Permitted - Pepcid 20 mg Oral Tablet - take 1 tablet ORAL route once daily; 20 tablet; Refills: 0, Product Selection snw Permitted Signatures: Gay Garcia FNP-C METAL MOCKUP [employer]KER-Csnw Taryn Quintana, RN RN iw Edwardo Howell MD MD rn
[2023-06-25 14:36] VITALS: BP 124/89; TEMP 99; O2SAT 99
== END 2023-06-25 14:17 | disposition home or self-care (01) ==
LOC: ER 13:18
DX: J20.9 Acute bronchitis, unspecified (principal)
CPT/HCPCS: 99281

== ENCOUNTER → 2023-08-03 | Emergency (ER) | payer SELFPAY ==
--- NOTE | 2023-08-03 15:27 | EDPHYS ---
Physician Documentation [facility] Name: Leandra Staton Age: 38 yrs Sex: Male : 1985 Arrival Date: 08/03/2023 Time: 12:42 Bed IW1 Private MD: ED Physician Padilla Rae HPI: 08/03 13:51 This 38 yrs old Male presents to ER via Ambulatory with complaints of Sore ec2 Throat. 13:51 Patient arrives today for evaluation of sore throat. Patient reports pain with p.o. ec2 intake, denies any fevers or chills, no nausea or vomiting.. Historical: - Allergies: 13:19 No Known Allergies; aa5 - PMHx: 13:19 Gout; Hypertension; aa5 - Immunization history:: Adult Immunizations unknown. - Social history:: Smoking status: Patient denies any tobacco usage or history of. ROS: 13:51 Constitutional: as per hpi ec2 Exam: 13:51 Constitutional: GEN: NAD Head: atraumatic Eyes: EOMI Ears: External ears are normal. ec2 Mouth: Posterior pharyngeal erythema without exudates appreciated. No significant anterior cervical lymphadenopathy appreciated. CV: regular rate LUNGS: no respiratory distress ABD: non-distended SKIN: no evidence of rashes MSK: no evidence of trauma NEURO: moves all extremities equally Vital Signs: 13:18 BP 148 / 81; Pulse 83; Resp 18 S; Temp 98.5(O); Pulse Ox 100% on R/A; Weight 95.25 kg aa5 (R); Height 5 ft. 8 in. (R); 13:18 Body Mass Index 31.93 (95.25 kg, 172.72 cm) aa5 MDM: 13:44 Patient medically screened. ec2 13:51 Data reviewed: vital signs. ED course: Patient arrives today for sore throat. ec2 Examination remarkable for well-appearing nontoxic individual is otherwise in no acute distress. Will send strep swab. Currently considering viral infection, strep pharyngitis, low suspicion for deep space infection. Patient otherwise systemically well-appearing, will defer any lab work, will defer CT imaging of the neck as well.. 15:26 ED course: Negative strep swab. Will discharge home with prescription for steroids and ec2 have him follow-up with primary care doctor. Suspect viral pharyngitis causing the symptoms. Return precautions given.. 08/03 13:44 Order name: Strep ec2 08/03 14:36 Order name: Throat Culture EDMS Administered Medications: No medications were administered Disposition Summary: 08/03/23 15:26 Discharge Ordered Notes: Location: Home ec2 Condition: Stable ec2 Diagnosis - Acute pharyngitis, unspecified ec2 Followup: ec2 - With: Private Physician - When: - Reason: Re-evaluation by your physician Discharge Instructions: - Discharge Summary Sheet ec2 - Pharyngitis ec2 Forms: - Work release form jl7 - Medication Reconciliation Form ec2 - Thank You Letter ec2 - Antibiotic Education ec2 - Prescription Opioid Use ec2 - Patient Portal Instructions ec2 - Leadership Thank You Letter ec2 Prescriptions: - Prednisone 20 mg Oral Tablet - take 2 tablets ORAL route once daily for 5 days; 10 tablet; Refills: 0, Product ec2 Selection Permitted Signatures: Dispatcher [employer] Sarah Harmon RN RN aa5 Padilla Rae MD MD ec2
--- NOTE | 2023-08-03 15:27 | ER ---
Nurse's Notes [facility] Name: Leandra Staton Age: 38 yrs Sex: Male : 1985 Arrival Date: 08/03/2023 Time: 12:42 Bed IW1 Private MD: Diagnosis: Acute pharyngitis, unspecified Presentation: 08/03 13:18 Chief complaint: Patient states: "I think I have strep throat". Pt reports sore throat aa5 since Sunday. Coronavirus screen: sore throat. Ebola Screen: Patient denies travel to an Ebola-affected area in the 21 days before illness onset. Initial Sepsis Screen: Does the patient meet any 2 criteria? No. Patient's initial sepsis screen is negative. Does the patient have a suspected source of infection? No. Patient's initial sepsis screen is negative. Risk Assessment: Do you want to hurt yourself or someone else? Patient reports no desire to harm self or others. Onset of symptoms was July 2023. 13:18 Method Of Arrival: Ambulatory aa5 13:18 Acuity: STEPHANIE 4 aa5 Historical: - Allergies: 13:19 No Known Allergies; aa5 - PMHx: 13:19 Gout; Hypertension; aa5 - Immunization history:: Adult Immunizations unknown. - Social history:: Smoking status: Patient denies any tobacco usage or history of. Assessment: 15:58 Reassessment: Patient is alert, oriented x 3, equal unlabored respirations, skin aa5 warm/dry/pink. Vital Signs: 13:18 BP 148 / 81; Pulse 83; Resp 18 S; Temp 98.5(O); Pulse Ox 100% on R/A; Weight 95.25 kg aa5 (R); Height 5 ft. 8 in. (R); 13:18 Body Mass Index 31.93 (95.25 kg, 172.72 cm) aa5 ED Course: 12:43 Patient arrived in ED. rg4 12:46 Padilla Rae MD is Attending Physician. ec2 13:19 Triage completed. aa5 13:19 Arm band placed on. aa5 15:58 No provider procedures requiring assistance completed. Patient did not have IV access aa5 during this emergency room visit. Administered Medications: No medications were administered Outcome: 15:26 Discharge ordered by MD. ec2 15:59 Discharged to home ambulatory, aa5 15:59 Condition: good 15:59 Discharge instructions given to patient, Instructed on discharge instructions, follow up and referral plans. medication usage, Demonstrated understanding of instructions, follow-up care, medications, Prescriptions given X 1, 15:59 Patient left the ED. aa5 Signatures: Sarah Crow RN RN aa5 Autumn Rhodes rg4 Padilla Rae MD MD ec2
[2023-08-03 17:56] VITALS: BP 148/81; TEMP 98.5; O2SAT 100
== END ==
LOC: ER 12:42
DX: J02.9 Acute pharyngitis, unspecified (principal)
CPT/HCPCS: 87070; 87081; 99283

== ENCOUNTER 2023-10-23 16:07 | Emergency (ER) | payer SELFPAY ==
--- NOTE | 2023-10-23 17:30 | ER ---
Nurse's Notes [facility] Name: Leandra Staton Age: 38 yrs Sex: Male : 1985 Arrival Date: 10/23/2023 Time: 16:07 Bed IW1 Private MD: Diagnosis: Sprain of ankle Presentation: 10/22 16:19 Chief complaint: Patient states: Right ankle pain since Sunday. Has taken ibuprofen nj1 with some relief. Jumped off a ladder, about 2 ft, on Sunday, felt fine then but pain started sunday. Coronavirus screen: Vaccine status: Patient reports being unvaccinated. Ebola Screen: Patient denies travel to an Ebola-affected area in the 21 days before illness onset. Initial Sepsis Screen: Does the patient meet any 2 criteria? No. Patient's initial sepsis screen is negative. Does the patient have a suspected source of infection? No. Patient's initial sepsis screen is negative. Risk Assessment: Do you want to hurt yourself or someone else? Patient reports no desire to harm self or others. Onset of symptoms was October 22, 2023. 16:19 Method Of Arrival: Ambulatory [facility] 16:19 Acuity: STEPHANIE 3 nj1 Triage Assessment: 16:20 General: Appears in no apparent distress. comfortable, Behavior is calm, cooperative, nj1 appropriate for age. Pain: Complains of pain in right ankle Pain currently is 1 out of 10 on a pain scale. 16:20 Neuro: Gait is steady. [facility] Historical: - Allergies: 16:21 No Known Allergies; nj1 - PMHx: 16:21 Gout; Hypertension; nj1 - Immunization history:: Client reports having NOT received the Covid vaccine. - Infectious Disease History:: Denies. - Social history:: Smoking status: Patient denies any tobacco usage or history of. Assessment: 18:24 Reassessment: Patient appears in no apparent distress at this time. Patient is alert, nj1 oriented x 3, equal unlabored respirations, skin warm/dry/pink. Vital Signs: 16:19 BP 137 / 94; Pulse 71; Resp 18; Temp 97.8(O); Pulse Ox 98% ; Weight 97.52 kg; Height 5 nj1 ft. 7 in. ; Pain 1/10; 16:19 Body Mass Index 33.67 (97.52 kg, 170.18 cm) nj1 16:19 Pain Scale: Adult tx1 ED Course: 16:10 Patient arrived in ED. im 16:12 Padilla Rae MD is Attending Physician. ec2 16:21 Triage completed. nj1 16:22 Arm band placed on right wrist. nj1 17:27 Ankle Right 3 View XRAY In Process Unspecified. EDMS 18:24 Serg wrap to right ankle. nj1 18:25 No provider procedures requiring assistance completed. Patient did not have IV access nj1 during this emergency room visit. Administered Medications: No medications were administered Medication: 18:25 VIS not applicable for this client. nj1 Outcome: 17:29 Discharge ordered by MD. ec2 18:25 Discharged to home ambulatory, nj1 18:25 Condition: stable 18:25 Discharge instructions given to patient, Instructed on discharge instructions, follow up and referral plans. medication usage, Demonstrated understanding of instructions, follow-up care, medications, Prescriptions given X 1, 18:25 Patient left the ED. nj1 Signatures: Dispatcher [employer] RCOR Kendal Covington RN RN nj1 Shakila Davies Padilla Rae MD MD ec2 Corrections: (The following items were deleted from the chart) 16:22 16:19 Acuity: STEPHANIE 4 nj1 nj1
--- NOTE | 2023-10-23 17:30 | EDPHYS ---
Physician Documentation [facility] Name: Leandra Staton Age: 38 yrs Sex: Male : 1985 Arrival Date: 10/23/2023 Time: 16:07 Bed IW1 Private MD: ED Physician Padilla Rae HPI: 10/22 16:33 This 38 yrs old Male presents to ER via Ambulatory with complaints of Ankle ec2 Injury - right. 16:33 Patient arrives today for evaluation of right ankle injury. Patient complaining of ec2 right ankle pain, has been having pain since yesterday, states that he had jumped off a surface and injured his right ankle. Denies any other injuries or trauma.. Historical: - Allergies: 16:21 No Known Allergies; nj1 - PMHx: 16:21 Gout; Hypertension; nj1 - Immunization history:: Client reports having NOT received the Covid vaccine. - Infectious Disease History:: Denies. - Social history:: Smoking status: Patient denies any tobacco usage or history of. ROS: 16:33 Constitutional: as per hpi ec2 Exam: 16:33 Constitutional: GEN: NAD Head: atraumatic Eyes: EOMI Ears: External ears are ec2 normal. CV: regular rate LUNGS: no respiratory distress ABD: non-distended SKIN: no evidence of rashes MSK: General right ankle TTP, no deformity, no crepitus, swelling appreciated, slight amount of ecchymosis noted to the lateral aspect of the foot.. Intact distal neurovascular status. NEURO: moves all extremities equally Vital Signs: 16:19 BP 137 / 94; Pulse 71; Resp 18; Temp 97.8(O); Pulse Ox 98% ; Weight 97.52 kg; Height 5 nj1 ft. 7 in. ; Pain 1/10; 16:19 Body Mass Index 33.67 (97.52 kg, 170.18 cm) nj1 16:19 Pain Scale: Adult nj1 MDM: 16:33 Patient medically screened. ec2 16:33 Data reviewed: vital signs. ED course: Patient arrives today for right ankle injury. ec2 Examination remarkable for MSK findings as noted above. Will obtain radiograph of the ankle. Considering ligamentous injury, bony fracture, contusion.. 17:28 ED course: Ankle x-ray independently reviewed and interpreted by me, shows no bony ec2 fracture. Will place an Serg wrap, discharge home, instructed in [id number] medications. Return precautions given. Presentation consistent with ankle sprain.. 10/22 16:12 Order name: Ankle Right 3 View XRAY; Complete Time: 17:35 ec2 10/22 17:29 Order name: Serg Wrap; Complete Time: 18:21 ec2 Administered Medications: No medications were administered Disposition Summary: 10/23/23 17:29 Discharge Ordered Notes: Location: Home ec2 Condition: Stable ec2 Diagnosis - Sprain of ankle ec2 Followup: ec2 - With: Private Physician - When: - Reason: Re-evaluation by your physician Discharge Instructions: - Discharge Summary Sheet ec2 - Ankle Sprain, [id number] ec2 Forms: - Work release form ec2 - Medication Reconciliation Form ec2 - Thank You Letter ec2 - Antibiotic Education ec2 - Prescription Opioid Use ec2 - Patient Portal Instructions ec2 - Leadership Thank You Letter ec2 Prescriptions: - methocarbamol 500 mg Oral tablet - take 2 tablets ORAL route 4 times per day; 20 tablet; Refills: 0, Product ec2 Selection Permitted Signatures: Dispatcher [employer] Kendal Maya RN RN nj1 Padilla Rae MD MD ec2 Corrections: (The following items were deleted from the chart) 16:50 16:33 Constitutional: GEN: NAD Head: atraumatic Eyes: EOMI Ears: External ears are ec2 normal. CV: regular rate LUNGS: no respiratory distress ABD: non-distended SKIN: no evidence of rashes MSK: General right ankle TTP, no deformity, no crepitus, swelling appreciated. Intact distal neurovascular status. NEURO: moves all extremities equally ec2
--- NOTE | 2023-10-23 17:34 | RAD REPORT ---
EXAM DESCRIPTION: RAD - Ankle Right 3 View - 10/23/2023 5:26 pm CLINICAL HISTORY: ankle injury COMPARISON: Ankle Left 3 View dated 03/04/2019 FINDINGS: Small posterior and plantar calcaneal spurs. Small calcification along the plantar fascia and proximal aspect. No acute fracture or dislocation.
[2023-10-23 21:44] VITALS: BP 137/94; TEMP 97.8; O2SAT 98
== END 2023-10-23 18:25 | disposition home or self-care (01) ==
LOC: ER 16:07
DX: S93.401A Sprain of unspecified ligament of right ankle, initial encounter (principal)
CPT/HCPCS: 99283

== ENCOUNTER 2024-04-28 14:48 | Emergency (ER) | payer SELFPAY ==
--- NOTE | 2024-04-28 16:05 | RAD REPORT ---
EXAM: 2 views of the Left ankle HISTORY: Ankle pain COMPARISON: None FINDINGS: BONES: No acute fracture. Alignment within normal limits. DEGENERATIVE: Calcaneal spurs. Other: n/a IMPRESSION: No evidence of acute osseous abnormality involving the imaged ankle.
[2024-04-28 17:49] LABS: Hematocrit 42.7 % (39.6-49.0); Hemoglobin 14.5 g/dL (13.6-17.9); MCH 30.5 pg (27.0-35.0); MCHC 34.1 g/dL (32.0-36.0); MCV 89.4 fL (80-100); MPV 8.9 fL (7.6-11.3); Platelets 213 thou/uL (152-406); RBC Red Blood Cell Count 4.78 M/uL (4.33-5.43); Red Cell Distribution Width 13.1 % (12.1-15.2)
[2024-04-28 18:01] LABS: Anion Gap 5.9 mEq/L (5.0-15.0); Potassium 3.9 mEq/L (3.5-5.1); Uric Acid 6.9 mg/dL (3.5-7.2)
--- NOTE | 2024-04-28 18:11 | ER ---
Nurse's Notes [facility] Name: Leandra Staton Age: 39 yrs Sex: Male : 1985 Arrival Date: 04/28/2024 Time: 14:48 Bed 6 Private MD: Diagnosis: Pain in left ankle and joints of left foot;Pseudogout Presentation: 04/28 15:04 Chief complaint: Patient states: Left ankle pain and swelling onset last night. Pt cm10 denies trauma or injury. Pt reports history of gout. Coronavirus screen: Client denies travel out of the [place] in the last 14 days. Ebola Screen: Patient denies travel to an Ebola-affected area in the 21 days before illness onset. No symptoms or risks identified at this time. Initial Sepsis Screen: Does the patient meet any 2 criteria? No. Patient's initial sepsis screen is negative. Does the patient have a suspected source of infection? No. Patient's initial sepsis screen is negative. Risk Assessment: Do you want to hurt yourself or someone else? Patient reports no desire to harm self or others. Onset of symptoms was April 27, 2024. 15:04 Method Of Arrival: Ambulatory cm10 15:04 Acuity: STEPHANIE 4 cm10 Triage Assessment: 15:06 General: Appears in no apparent distress. comfortable, Behavior is calm, cooperative. cm10 Pain: Complains of pain in Left ankle Pain currently is 4 out of 10 on a pain scale. at worst was 9 out of 10 on a pain scale. Pain began 1 day ago. Neuro: No deficits noted. Level of Consciousness is awake, alert, obeys commands, Oriented to person, place, time, situation, Appropriate for age. Respiratory: No deficits noted. Airway is patent Respiratory effort is even, unlabored, Respiratory pattern is regular, symmetrical. Historical: - Allergies: 15:06 No Known Allergies; cm10 - PMHx: 15:06 Gout; Hypertension; cm10 - Immunization history:: Adult Immunizations up to date. - Infectious Disease History:: Denies. - Social history:: Smoking status: Patient denies any tobacco usage or history of. Screenin:10 [facility] ED Fall Risk Assessment (Adult) History of falling in the last 3 months, rs5 including since admission No falls in past 3 months (0 pts) Confusion or Disorientation No (0 pts) Intoxicated or Sedated No (0 pts) Impaired Gait Yes (1 pt) Mobility Assist Device Used No (0 pt) Altered Elimination No (0 pt) Score/Fall Risk Level 0 - 2 = Low Risk Oriented to surroundings, Maintained a safe environment. Abuse screen: Denies threats or abuse. Nutritional screening: No deficits noted. Tuberculosis screening: No symptoms or risk factors identified. Assessment: 15:10 General: Appears in no apparent distress. comfortable, Behavior is calm, cooperative. rs5 Pain: Complains of pain in left ankle Pain currently is 5 out of 10 on a pain scale. Quality of pain is described as aching, Is continuous. Neuro: Level of Consciousness is awake, alert, obeys commands, Oriented to person, place, time, situation. Cardiovascular: Patient's skin is warm and dry. Respiratory: Airway is patent Respiratory effort is even, unlabored, Respiratory pattern is regular, symmetrical. GI: Abdomen is round non-distended, Abd is soft and non tender X 4 quads. : No signs and/or symptoms were reported regarding the genitourinary system. EENT: No signs and/or symptoms were reported regarding the EENT system. Derm: Skin is intact, Skin is pink, warm \T\ dry. Musculoskeletal: Range of motion: limited in left ankle. 16:20 Reassessment: Patient and/or family updated on plan of care and expected duration. Pain rs5 level reassessed. Patient is alert, oriented x 3, equal unlabored respirations, skin warm/dry/pink. 17:28 Reassessment: Patient and/or family updated on plan of care and expected duration. Pain rs5 level reassessed. Patient is alert, oriented x 3, equal unlabored respirations, skin warm/dry/pink. 18:15 Reassessment: Patient and/or family updated on plan of care and expected duration. Pain rs5 level reassessed. Patient is alert, oriented x 3, equal unlabored respirations, skin warm/dry/pink. Patient states feeling better. Patient states symptoms have improved. 18:30 Reassessment: No changes from previously documented assessment. rs5 Vital Signs: 15:04 BP 139 / 90; Pulse 80; Resp 16; Temp 98.6; Pulse Ox 97% on R/A; Weight 102.06 kg; cm10 Height 5 ft. 7 in. ; Pain 4/10; 17:01 BP 133 / 84; Pulse 70; Resp 17; Pulse Ox 99% on R/A; rs5 18:28 BP 135 / 88; Pulse 77; Resp 17; Pulse Ox 99% on R/A; rs5 15:04 Body Mass Index 35.24 (102.06 kg, 170.18 cm) cm10 15:04 Pain Scale: Adult cm10 ED Course: 14:52 Patient arrived in ED. sj2 14:53 Adriane Gratn MD is Attending Physician. sp3 15:06 Triage completed. cm10 15:07 Arm band placed on Patient placed in waiting room. cm10 15:15 Patient has correct armband on for positive identification. Bed in low position. Call rs5 light in reach. Side rails up X2. 15:40 Inserted saline lock: 22 gauge in right antecubital area, using aseptic technique. rs5 Blood collected. Flushed with 10 mL NS. 16:00 Ankle Left 2 View XRAY In Process Unspecified. EDMS 16:00 No provider procedures requiring assistance completed. rs5 17:35 Jackeline Carrillo PA-C is PHCP. sb4 18:03 Alin Nesbitt, RN is Primary Nurse. rs5 18:09 Albert Casillas MD is Referral Physician. sb4 18:40 Provided Education on: discharge instructions . rs5 18:50 IV discontinued, intact, bleeding controlled, No redness/swelling at site. Pressure rs5 dressing applied. Administered Medications: 18:10 Drug: Colchicine-Probenecid PO 2 tabs PO once Route: PO; rs5 18:52 Not Given (Patient Refused): colchicine-probenecid1 tabs PO once; 1 hour after first rs5 dose Medication: 18:00 VIS not applicable for this client. rs5 Outcome: 18:10 Discharge ordered by . sb4 18:50 Discharged to home ambulatory, rs5 18:50 Condition: stable rs5 18:50 Discharge instructions given to patient, family, Instructed on discharge instructions, follow up and referral plans. medication usage, Demonstrated understanding of instructions, follow-up care, medications, Prescriptions given X 1, 18:51 Patient left the ED. rs5 Signatures: Dispatcher [employer] EDMS Adriane Grant MD MD sp3 Jackeline Carrillo PA-C PA-C sb4 Alin Nesbitt, RN RN rs5 Cheryl Akhtar RN RN cm10 Fede Schofield sj2 Corrections: (The following items were deleted from the chart) 18:53 15:01 BP 135 / 88; Pulse 77bpm; Resp 17bpm; Pulse Ox 99% RA; rs5 rs5
--- NOTE | 2024-04-28 18:11 | EDPHYS ---
Physician Documentation [facility] Name: Leandra Staton Age: 39 yrs Sex: Male : 1985 Arrival Date: 04/28/2024 Time: 14:48 Bed 6 Private MD: ED Physician Adriane Grant HPI: 04/28 17:29 This 39 yrs old Male presents to ER via Ambulatory with complaints of Ankle sp3 Swelling, Foot Pain. 17:29 39-year-old male with history of hypertension and "gout" (uric acid was never checked" sp3 now presents to the ED with left ankle pain consistent with his prior "attacks". Patient took ibuprofen 800 mg prior to arrival and states that it is improving. Patient has been on colchicine in the past. No other past medical history is pertinent. Patient denies fever, trauma, chest pain, shortness of breath, other joint involvement or any other signs or symptoms on ROS at this time.. Historical: - Allergies: 15:06 No Known Allergies; cm10 - PMHx: 15:06 Gout; Hypertension; cm10 - Immunization history:: Adult Immunizations up to date. - Infectious Disease History:: Denies. - Social history:: Smoking status: Patient denies any tobacco usage or history of. ROS: 17:30 Constitutional: Negative for fever, chills, and weight loss, Eyes: Negative for injury, sp3 pain, redness, and discharge, Neck: Negative for injury, pain, and swelling, Cardiovascular: Negative for chest pain, palpitations, and edema, Respiratory: Negative for shortness of breath, cough, wheezing, and pleuritic chest pain, Abdomen/GI: Negative for abdominal pain, nausea, vomiting, diarrhea, and constipation, Back: Negative for injury and pain, : Negative for injury, bleeding, discharge, and swelling, Neuro: Negative for headache, weakness, numbness, tingling, and seizure, Psych: Negative for depression, anxiety, suicide ideation, homicidal ideation, and hallucinations, Allergy/Immunology: Negative for hives, rash, and allergies, Endocrine: Negative for neck swelling, polydipsia, polyuria, polyphagia, and marked weight changes, Hematologic/Lymphatic: Negative for swollen nodes, abnormal bleeding, and unusual bruising, 17:30 All other systems are negative, Exam: 17:30 Constitutional: This is a well developed, well nourished patient who is awake, alert, sp3 and in no acute distress. Head/Face: Normocephalic, atraumatic. Eyes: Pupils equal round and reactive to light, extra-ocular motions intact. Lids and lashes normal. Conjunctiva and sclera are non-icteric and not injected. Cornea within normal limits. Periorbital areas with no swelling, redness, or edema. Chest/axilla: Normal chest wall appearance and motion. Nontender with no deformity. No lesions are appreciated. Cardiovascular: Regular rate and rhythm with a normal S1 and S2. No gallops, murmurs, or rubs. Normal PMI, no JVD. No pulse deficits. Respiratory: Lungs have equal breath sounds bilaterally, clear to auscultation and percussion. No rales, rhonchi or wheezes noted. No increased work of breathing, no retractions or nasal flaring. Abdomen/GI: Soft, non-tender, with normal bowel sounds. No distension or tympany. No guarding or rebound. No evidence of tenderness throughout. Back: No spinal tenderness. No costovertebral tenderness. Full range of motion. Skin: Warm, dry with normal turgor. Normal color with no rashes, no lesions, and no evidence of cellulitis. Neuro: Awake and alert, GCS 15, oriented to person, place, time, and situation. Cranial nerves II-XII grossly intact. Motor strength 5/5 in all extremities. Sensory grossly intact. Cerebellar exam normal. Normal gait. Psych: Awake, alert, with orientation to person, place and time. Behavior, mood, and affect are within normal limits. 17:30 Musculoskeletal/extremity: Pain on movement and palpation of the anterior ankle joint over the talus mortise. Distal neurovascular exam is normal as well as cap refill.. Vital Signs: 15:04 BP 139 / 90; Pulse 80; Resp 16; Temp 98.6; Pulse Ox 97% on R/A; Weight 102.06 kg; cm10 Height 5 ft. 7 in. ; Pain 4/10; 17:01 BP 133 / 84; Pulse 70; Resp 17; Pulse Ox 99% on R/A; rs5 18:28 BP 135 / 88; Pulse 77; Resp 17; Pulse Ox 99% on R/A; rs5 15:04 Body Mass Index 35.24 (102.06 kg, 170.18 cm) cm10 15:04 Pain Scale: Adult cm10 MDM: 15:11 Patient medically screened. sp3 17:31 Data reviewed: vital signs, nurses notes, lab test result(s), radiologic studies. ED sp3 course: Differential diagnosis includes gout, other arthritis, or musculoskeletal strain. Clinically I am not highly suspicious of septic joint, DVT, fracture, or any other concerning or critical process. Ankle x-ray is negative and laboratory values are pending including CBC, chemistries and uric acid level. Patient already had NSAID prior to arrival. If uric acid is elevated we will discharge patient on colchicine and NSAID and if normal on NSAIDs alone with follow-up to orthopedics and PCP.. 18:09 Counseling: I had a detailed discussion with the patient and/or guardian regarding the sb4 historical points, exam findings, and any diagnostic results supporting the discharge/admit diagnosis, lab results, the need for outpatient follow up, a orthopedic surgeon, to return to the emergency department if symptoms worsen or persist or if there are any questions or concerns that arise at home. 04/28 15:13 Order name: Uric Acid; Complete Time: 18:02 sp3 04/28 15:13 Order name: BMP; Complete Time: 18:02 sp3 04/28 15:13 Order name: CBC w/o diff; Complete Time: 17:57 sp3 04/28 15:13 Order name: Ankle Left 2 View XRAY; Complete Time: 16:14 sp3 04/28 15:13 Order name: Saline Lock; Complete Time: 18:03 sp3 Administered Medications: 18:10 Drug: Colchicine-Probenecid PO 2 tabs PO once Route: PO; rs5 18:52 Not Given (Patient Refused): colchicine-probenecid1 tabs PO once; 1 hour after first rs5 dose Disposition Summary: 04/28/24 18:10 Discharge Ordered Notes: Location: Home sb4 Problem: new sb4 Symptoms: have improved sb4 Condition: Stable sb4 Diagnosis - Pain in left ankle and joints of left foot sb4 - Pseudogout sb4 Followup: sb4 - With: Albert Casillas MD - When: 1 week - Reason: Recheck today's complaints, Re-evaluation by your physician Discharge Instructions: - Discharge Summary Sheet sb4 - Gout sb4 - Musculoskeletal Pain sb4 - Pain Without a Known Cause sb4 Forms: - Patient Portal Instructions sb4 - Leadership Thank You Letter sb4 - Work release form rs5 Prescriptions: - Anaprox DS 550 mg Oral Tablet - take 1 tablet ORAL route every 12 hours As needed; 20 tablet; Refills: 0, sb4 Product Selection Permitted Signatures: Dispatcher [employer] Adriane Archibald MD MD sp3 Jackeline Carrillo PA-C PA-C sb4 Alin Nesbitt RN RN rs5 Cheryl Akhtar RN RN cm10
[2024-04-28] MEDS ORDERED: COLCHICINE 0.6 MG TAB ONE (18:38)
[2024-04-28 18:57] VITALS: BP 139/90; TEMP 98.6; O2SAT 97
== END 2024-04-28 18:51 | disposition home or self-care (01) ==
LOC: ER 14:48
DX: M11.272 Other chondrocalcinosis, left ankle and foot (principal)
CPT/HCPCS: 36415; 80048; 84550; 85027; 99284

== ENCOUNTER 2024-09-04 11:55 | Emergency (ER) | payer SELFPAY ==
--- NOTE | 2024-09-04 12:28 | RAD REPORT ---
EXAMINATION: US RIGHT LOWER EXTREMITY VENOUS DOPPLER CLINICAL INDICATION: RLE DVT eval RIGHT TECHNIQUE: Complete bilateral duplex sonography of the RIGHT lower extremity veins was performed. The examination included compression for vein patency, color Doppler imaging and flow augmentation in response to distal compression of the distal external iliac, common femoral, femoral, popliteal, tibi al, and great and small saphenous veins. COMPARISON: No prior exam. FINDINGS: Duplex sonography testing of the veins of the RIGHT lower extremity was performed. Color flow imaging shows all veins to be compressible with [id number] color filling. Pulsatile and phasic flow is present within all lower extremity deep and superficial veins examined. IMPRESSION: There is no deep vein or superficial vein thrombosis.
--- NOTE | 2024-09-04 12:44 | EDPHYS ---
Physician Documentation [facility] Name: Leandra Staton Age: 39 yrs Sex: Male : 1985 Arrival Date: 09/04/2024 Time: 11:55 Bed 5 Private MD: ED Physician Padilla Rae HPI: 09/04 12:45 This 39 yrs old Male presents to ER via Ambulatory with complaints of Right ec2 ankle swelling. 12:45 Patient arrives today for right ankle pain and swelling. Patient reports that has been ec2 experiencing worsening pain for the past several days. Patient reports no fevers or chills, no nausea or vomiting, no falls, injury, trauma. Patient reports history of gout, states this feels somewhat similar.. Historical: - Allergies: 12:09 No Known Allergies; ll1 - Home Meds: 12:09 None [Active]; ll1 - PMHx: 12:00 Gout; Hypertension; ll1 - PSHx: 12:09 None; ll1 - Immunization history:: Adult Immunizations. - Infectious Disease History:: Denies. - Social history:: Smoking status: Patient denies any tobacco usage or history of. ROS: 12:45 Constitutional: as per hpi ec2 Exam: 12:45 Constitutional: GEN: NAD Head: atraumatic Eyes: EOMI Ears: External ears are ec2 normal. CV: regular rate LUNGS: no respiratory distress ABD: non-distended SKIN: no evidence of rashes MSK: no evidence of trauma, right lower extremity with trace edema, intact distal neurovascular status. Joint with good range of motion, no erythema, no warmth, no deformities Vital Signs: 12:09 BP 135 / 86; Pulse 64; Resp 16; Temp 97.4; Pulse Ox 94% on R/A; Weight 102.06 kg; iw Height 5 ft. 8 in. ; Pain 5/10; 12:30 BP 127 / 82; Pulse 67; Resp 18; Temp 97.5; Pulse Ox 96% ; ph 12:09 Body Mass Index 34.21 (102.06 kg, 172.72 cm) iw 12:09 Pain Scale: Adult iw MDM: 12:00 Medical Screening Exam initiated ec2 12:45 Data reviewed: vital signs, nurses notes. ED course: Patient arrives today for ec2 evaluation of right lower extremity swelling. Examination yields MSK findings as above. DVT ultrasound obtained, negative for DVT. Suspect possible gout. Considered DVT, gout, cellulitis, septic joint. Patient otherwise without systemic signs symptoms to indicate septic joint. 09/04 12:04 Order name: Extremity Venous Uni Ltd US; Complete Time: 12:33 ec2 Administered Medications: 12:56 Drug: Colcrys PO 1.2 mg PO once Route: PO; kc6 13:30 Follow up: Response: No adverse reaction ph 12:56 Drug: Colcrys PO 0.6 mg PO once Route: PO; kc6 13:30 Follow up: Response: No adverse reaction ph 12:56 Drug: Ketorolac IM 30 mg IM once Route: IM; Site: left deltoid; kc6 13:30 Follow up: Response: No adverse reaction ph 12:56 Drug: Acetaminophen PO 1000 mg PO once Route: PO; kc6 13:30 Follow up: Response: No adverse reaction ph Disposition Summary: 09/04/24 12:44 Discharge Ordered Notes: Location: Home ec2 Condition: Stable ec2 Diagnosis - Pain in right ankle and joints of right foot ec2 Followup: ec2 - With: Private Physician - When: - Reason: Re-evaluation by your physician Discharge Instructions: - Discharge Summary Sheet ec2 - Joint Pain ec2 - Gout, [place] ec2 Forms: - Work release form ph - Medication Reconciliation Form ec2 - Antibiotic Education ec2 - Prescription Opioid Use ec2 - Patient Portal Instructions ec2 - Leadership Thank You Letter ec2 Prescriptions: - methocarbamol 500 mg Oral tablet - take 2 tablets ORAL route 4 times per day; 20 tablet; Refills: 0, Product ec2 Selection Permitted Signatures: Dispatcher [employer] Letty Tiwari RN RN Seb Valdovions RN RN ll1 Chelsy Daniel RN RN kc6 Padilla Rae MD MD ec2 Corrections: (The following items were deleted from the chart) 12:04 12:04 CBC+H.LAB.BRZ ordered. EDMS EDMS 12:04 12:04 BASIC METABOLIC PANEL+C.LAB.BRZ ordered. EDMS EDMS 12:04 12:04 PROTIME (+INR)+COAG.LAB.BRZ ordered. EDMS EDMS 12:04 12:04 PTT, ACTIVATED+COAG.LAB.BRZ ordered. EDMS EDMS
--- NOTE | 2024-09-04 12:44 | ER ---
Nurse's Notes [facility] Name: Leandra Staton Age: 39 yrs Sex: Male : 1985 Arrival Date: 09/04/2024 Time: 11:55 Bed 5 Private MD: Diagnosis: Pain in right ankle and joints of right foot Presentation: 09/04 12:09 Chief complaint: Patient states: I must have twisted my R ankle last night. Didn't hurt ll1 until this morning. Coronavirus screen: Client denies travel out of the [place] in the last 14 days. At this time, the client does not indicate any symptoms associated with coronavirus-19. Ebola Screen: Patient denies travel to an Ebola-affected area in the 21 days before illness onset. Initial Sepsis Screen: Does the patient meet any 2 criteria? No. Patient's initial sepsis screen is negative. Does the patient have a suspected source of infection? No. Patient's initial sepsis screen is negative. Risk Assessment: Do you want to hurt yourself or someone else? Patient reports no desire to harm self or others. Onset of symptoms was September 03, 2024. 12:09 Method Of Arrival: Ambulatory ll1 12:09 Acuity: STEPHANIE 4 ll1 12:23 Acuity: STEPHANIE 3 iw Triage Assessment: 12:10 General: Appears in no apparent distress. Behavior is calm, cooperative, appropriate ll1 for age. Pain: Complains of pain in R ankle Pain currently is 5 out of 10 on a pain scale. Quality of pain is described as aching. Musculoskeletal: Reports pain in R ankle. Injury Description: Bruise. Historical: - Allergies: 12:09 No Known Allergies; ll1 - Home Meds: 12:09 None [Active]; ll1 - PMHx: 12:00 Gout; Hypertension; ll1 - PSHx: 12:09 None; ll1 - Immunization history:: Adult Immunizations. - Infectious Disease History:: Denies. - Social history:: Smoking status: Patient denies any tobacco usage or history of. Screenin:39 [facility] ED Fall Risk Assessment (Adult) History of falling in the last 3 months, ph including since admission No falls in past 3 months (0 pts) Confusion or Disorientation No (0 pts) Intoxicated or Sedated No (0 pts) Impaired Gait No (0 pts) Mobility Assist Device Used No (0 pt) Altered Elimination No (0 pt) Score/Fall Risk Level 0 - 2 = Low Risk Oriented to surroundings, Maintained a safe environment, Hourly rounding (assess needs \T\ fall precautionary measures) done. Abuse screen: Denies threats or abuse. Denies injuries from another. Nutritional screening: No deficits noted. Tuberculosis screening: No symptoms or risk factors identified. Assessment: 12:37 General: Appears in no apparent distress. Behavior is calm, cooperative. Pain: ph Complains of pain in right ankle. Neuro: Level of Consciousness is awake, alert, obeys commands, Oriented to person, place, time, situation. Derm: Skin is pink, warm \T\ dry. Musculoskeletal: Reports pain in right ankle. 12:51 Reassessment: Patient appears in no apparent distress at this time. Patient and/or iw family updated on plan of care and expected duration. Pain level reassessed. Patient is alert, oriented x 3, equal unlabored respirations, skin warm/dry/pink. Vital Signs: 12:09 BP 135 / 86; Pulse 64; Resp 16; Temp 97.4; Pulse Ox 94% on R/A; Weight 102.06 kg; iw Height 5 ft. 8 in. ; Pain 5/10; 12:30 BP 127 / 82; Pulse 67; Resp 18; Temp 97.5; Pulse Ox 96% ; ph 12:09 Body Mass Index 34.21 (102.06 kg, 172.72 cm) iw 12:09 Pain Scale: Adult iw ED Course: 11:57 Patient arrived in ED. ec2 11:57 Padilla Rae MD is Attending Physician. ec2 12:00 Arm band placed on Patient placed in an exam room, on a stretcher. ll1 12:10 Triage completed. ll1 12:19 Extremity Venous Uni Ltd US In Process Unspecified. EDMS 12:22 Letty Ceron, KING is Primary Nurse. ph 12:39 Patient has correct armband on for positive identification. Bed in low position. Call ph light in reach. Side rails up X 1. Pulse ox on. NIBP on. 12:56 No provider procedures requiring assistance completed. Patient did not have IV access kc6 during this emergency room visit. Administered Medications: 12:56 Drug: Colcrys PO 1.2 mg PO once Route: PO; kc6 13:30 Follow up: Response: No adverse reaction ph 12:56 Drug: Colcrys PO 0.6 mg PO once Route: PO; kc6 13:30 Follow up: Response: No adverse reaction ph 12:56 Drug: Ketorolac IM 30 mg IM once Route: IM; Site: left deltoid; kc6 13:30 Follow up: Response: No adverse reaction ph 12:56 Drug: Acetaminophen PO 1000 mg PO once Route: PO; kc6 13:30 Follow up: Response: No adverse reaction ph Medication: 12:39 VIS not applicable for this client. ph Outcome: 12:44 Discharge ordered by . ec2 12:56 Discharged to home ambulatory, kc6 12:56 Condition: good 12:56 Discharge instructions given to patient, Instructed on discharge instructions, follow up and referral plans. medication usage, Demonstrated understanding of instructions, follow-up care, medications, Prescriptions given X 1, 12:57 Patient left the ED. kc6 Signatures: Dispatcher [employer] Taryn Gray RN RN iw Hall, Patricia, RN RN ph Lewis, Lynsay, RN RN ll1 Chelsy Daniel RN RN kc6 Padilla Rae MD MD ec2 Corrections: (The following items were deleted from the chart) 12:22 12:09 Resp 16bpm; 102.06 kg; Height 5 ft. 8 in.; BMI: 34.2; Pain 5/10, Adult; ll1 ll1 12:52 12:09 Pulse 64bpm; Resp 16bpm; Pulse Ox 94% RA; Temp 97.4F; 102.06 kg; Height 5 ft. 8 iw in.; BMI: 34.2; Pain 5/10, Adult; ll1
[2024-09-04] MEDS ORDERED: KETOROLAC 30 MG/ML INJ ONE (12:47)
[2024-09-04] MEDS ORDERED: COLCHICINE 0.6 MG TAB ONE (12:47)
[2024-09-04] MEDS ORDERED: ACETAMINOPHEN 500 MG TAB ONE (12:47)
[2024-09-04 13:01] VITALS: BP 135/86; TEMP 97.4; O2SAT 94
== END 2024-09-04 12:57 | disposition home or self-care (01) ==
LOC: ER 11:55
DX: M25.571 Pain in right ankle and joints of right foot (principal)
CPT/HCPCS: 93971; 96372; 99284